=== PATIENT | female | born 1990 | race Caucasian/White ===

== ENCOUNTER 2017-07-20 02:22 | Inpatient (IN) ==
[2017-07-20] MEDS ORDERED: HYDROmorphone 2 MG/1 ML VIAL IV STA (03:11)
[2017-07-20] MEDS ORDERED: CEFTAROLINE 600 MG in SODIUM CHLORIDE 0.9% 100 ML IV STA (03:11)
[2017-07-20] MEDS ORDERED: INSULIN REGULAR 100 UNIT/ML IV STA (03:11)
[2017-07-20] MEDS ORDERED: ONDANSETRON 4 MG/2 ML VIAL IV STA (03:11)
[2017-07-20 03:24] LABS: Basophils % 0.2 % (0.0-0.8); Eosinophils # 0.1 10*3/uL (0.0-0.87); Hematocrit 38.8 VOL% (35.7-47.0); Hemoglobin 14.1 GM/DL (12.0-16.0); Immature Granulocytes % 0.5 %; Immature Granulocytes Absolute 0.07 #; Lymphocytes # 1.6 10*3/uL (1.4-4.0); Mean Corpuscular HGB Conc 36.3 GM/DL (32-36); Mean Corpuscular Hemoglobin 32 PG (27-34); Mean Corpuscular Volume 87.2 FL (87-102); Mean Platelet Volume 9.2 FL (9.6-12.0); Monocytes # 0.8 10*3/uL (0.11-0.8); Monocytes % 5.8 % (1.7-12.7); Neutrophils # 11.5 10*3/uL (1.4-7.4); Neutrophils % 81.5 % (38.7-73.9); Platelet Count 182 T/CUMM (130-400); Red Blood Count 4.45 MC/CUMM (3.8-5.5); White Blood Count 14.1 T/CUMM (4-12)
[2017-07-20 03:33] LABS: INR 0.9; PT Patient Result 9.7 SECS
[2017-07-20 03:36] LABS: Albumin 3.3 G/DL (3.4-5.0); Bilirubin,Total 0.4 MG/DL (0.2-1.0); Calcium 9.2 MG/DL (8.5-10.1); Magnesium 1.4 MG/DL (1.8-2.4); Osmolality,Calculated 280.8 MOS/KG (273-304); Total Protein 7.2 G/DL (6.4-8.3)
[2017-07-20 03:37] LABS: Lactic Acid 2.4 MMOL/L (0.4-2.0)
[2017-07-20] MEDS ORDERED: SODIUM CHLORIDE 0.9% 2,800 ML IV ONE (03:39)
[2017-07-20] MEDS ORDERED: MAGNESIUM SULF RIDER 2 GM in PREMIX 1 EACH IV STA (03:39)
[2017-07-20] MEDS ORDERED: ONDANSETRON 4 MG/2 ML VIAL ONE (03:45)
[2017-07-20] MEDS ORDERED: HYDROmorphone 2 MG/1 ML VIAL ONE (03:45)
[2017-07-20] MEDS ORDERED: INSULIN REGULAR 100 UNIT/ML ONE (03:47)
[2017-07-20] MEDS ORDERED: CEFTAROLINE 600 MG VIAL IV ONE (03:47)
[2017-07-20] MEDS ORDERED: ACETAMINOPHEN 325 MG TABLET PO PRN (04:11)
[2017-07-20] MEDS ORDERED: ONDANSETRON 4 MG/2 ML VIAL IV PRN (04:11)
[2017-07-20] MEDS ORDERED: NICOTINE 21 MG/24 HR PATCH TRANSDERM PRN (04:11)
[2017-07-20] MEDS ORDERED: GLUCAGON 1 MG VIAL IM PRN (04:11)
[2017-07-20] MEDS ORDERED: DEXTROSE 50% 25 GM/50 ML VIAL IV PRN (04:11)
[2017-07-20 06:27] LABS: Apearance,Urine CLOUDY (Clear); Bilirubin,Urine Negative (Negative); Blood, Urine Small mg/dL (Negative); Glucose,Urine (UA) >=500 mg/dL (Negative); Ketones,Urine 5 mg/dL (Negative); Nitrite,Urine Negative (Negative); Protein,Urine Negative; RBC,Urine 19 /HPF (0-4); Renal Epithelial Cells,Urine Occasional /HPF (<1); Squamous Epithelial Cell,Urine Occasional /HPF (0-10); Urine Color Yellow (Yellow); Urine Specific Gravity 1.039 (1.001-1.035); Urine Urobilinogen < 2.0 EU/DL (0.2-1.0); WBC,Urine 5 /HPF (0-6)
[2017-07-20 06:36] LABS: Barbiturates Screen,Urine Negative (Negative); Benzodiazepines Screen,Urine Negative (Negative); Cannabinoid Screen,Urine Negative (Negative); Opiate Screen,Urine Positive (Negative); Phencyclidine Screen,Urine Negative (Negative)
[2017-07-20 07:36] LABS: Basophils % 0.2 % (0.0-0.8); Eosinophils # 0.1 10*3/uL (0.0-0.87); Eosinophils % 0.9 % (0.00-10.9); Hematocrit 35.5 VOL% (35.7-47.0); Hemoglobin 12.8 GM/DL (12.0-16.0); Immature Granulocytes % 0.8 %; Immature Granulocytes Absolute 0.09 #; Lymphocytes # 1.7 10*3/uL (1.4-4.0); Mean Corpuscular HGB Conc 36.1 GM/DL (32-36); Mean Corpuscular Hemoglobin 31 PG (27-34); Mean Corpuscular Volume 87.2 FL (87-102); Mean Platelet Volume 8.9 FL (9.6-12.0); Monocytes # 0.7 10*3/uL (0.11-0.8); Monocytes % 6.5 % (1.7-12.7); Neutrophils # 8.7 10*3/uL (1.4-7.4); Neutrophils % 76.6 % (38.7-73.9); Platelet Count 164 T/CUMM (130-400); Red Blood Count 4.07 MC/CUMM (3.8-5.5); Red Cell Distribution Width 11.9 % (9.3-17.3); White Blood Count 11.3 T/CUMM (4-12)
[2017-07-20 08:04] LABS: Band Neutrophils 2 % (0-10); Eosinophils 2 % (0-10); Lymphocytes 19 % (20-55); Platelet Estimate Normal; Segmented Neutrophils 70 % (50-85); Total Cells Counted 100
[2017-07-20 08:05] LABS: Hypochromasia 1+; Ovalocytes Slight
[2017-07-20] MEDS: SODIUM CHLORIDE 0.9% 1,000 ML IV SCH ×2 (08:42→18:42)
[2017-07-20] MEDS: INSULIN REGULAR 100 UNIT/ML SUBCUT SCH ×3 (08:43→18:42)
[2017-07-20] MEDS: ENOXAPARIN 40 MG/0.4 ML SYRINGE SUBCUT SCH (08:44)
[2017-07-20] MEDS: DOCUSATE SODIUM 100 MG CAPSULE PO SCH ×3 (08:44→22:09)
[2017-07-20] MEDS: INSULIN GLARGINE 100 UNIT/ML SUBCUT SCH (08:44)
[2017-07-20] MEDS: PANTOPRAZOLE 40 MG TABLET PO SCH (08:44)
[2017-07-20 10:08] LABS: INR 0.9
[2017-07-20] MEDS: PIPERACILLIN/TAZOBACTAM 3,375 MG in SODIUM CHLORIDE 0.9% 100 ML IV SCH ×2 (10:33→18:42)
[2017-07-20] MEDS: CLOTRIMAZOLE 1% CREAM 15 GM TUBE TOP SCH ×2 (15:14→22:08)
[2017-07-20] MEDS: MORPHINE 2 MG/1 ML SYRINGE IV PRN (15:14)
[2017-07-20 15:21] LABS: Calcium 7.8 MG/DL (8.5-10.1); Osmolality,Calculated 287.4 MOS/KG (273-304); Potassium 3.7 MMOL/L (3.5-5.1)
[2017-07-20] MEDS: CEFTAROLINE 600 MG in SODIUM CHLORIDE 0.9% 50 ML IV SCH (15:59)
[2017-07-21] MEDS: MORPHINE 2 MG/1 ML SYRINGE IV PRN ×3 (01:28→22:27)
[2017-07-21] MEDS: INSULIN REGULAR 100 UNIT/ML SUBCUT SCH ×4 (01:54→18:14)
[2017-07-21] MEDS: PIPERACILLIN/TAZOBACTAM 3,375 MG in SODIUM CHLORIDE 0.9% 100 ML IV SCH ×3 (02:02→22:25)
[2017-07-21 04:59] LABS: Basophils % 0.5 % (0.0-0.8); Eosinophils # 0.1 10*3/uL (0.0-0.87); Hematocrit 34.4 VOL% (35.7-47.0); Hemoglobin 12.1 GM/DL (12.0-16.0); Immature Granulocytes % 0.8 %; Immature Granulocytes Absolute 0.05 #; Lymphocytes # 1.5 10*3/uL (1.4-4.0); Lymphocytes % 22.9 % (21.3-54.2); Mean Corpuscular HGB Conc 35.2 GM/DL (32-36); Mean Corpuscular Hemoglobin 31 PG (27-34); Mean Corpuscular Volume 89.1 FL (87-102); Mean Platelet Volume 9.4 FL (9.6-12.0); Monocytes # 0.4 10*3/uL (0.11-0.8); Monocytes % 6.4 % (1.7-12.7); Neutrophils # 4.3 10*3/uL (1.4-7.4); Neutrophils % 67.4 % (38.7-73.9); Platelet Count 160 T/CUMM (130-400); Red Blood Count 3.86 MC/CUMM (3.8-5.5); Red Cell Distribution Width 12.1 % (9.3-17.3); White Blood Count 6.4 T/CUMM (4-12)
[2017-07-21 05:27] LABS: Calcium 7.9 MG/DL (8.5-10.1); Magnesium 1.6 MG/DL (1.8-2.4); Osmolality,Calculated 288.4 MOS/KG (273-304); Potassium 3.7 MMOL/L (3.5-5.1)
[2017-07-21] MEDS: CEFTAROLINE 600 MG in SODIUM CHLORIDE 0.9% 50 ML IV SCH ×2 (06:32→16:55)
[2017-07-21] MEDS: SODIUM CHLORIDE 0.9% 1,000 ML IV SCH ×4 (06:33→22:25)
[2017-07-21] MEDS: PANTOPRAZOLE 40 MG TABLET PO SCH (09:02)
[2017-07-21] MEDS: INSULIN GLARGINE 100 UNIT/ML SUBCUT SCH (09:02)
[2017-07-21] MEDS: ENOXAPARIN 40 MG/0.4 ML SYRINGE SUBCUT SCH (09:03)
[2017-07-21] MEDS: DOCUSATE SODIUM 100 MG CAPSULE PO SCH ×2 (09:04→22:26)
[2017-07-21] MEDS: CLOTRIMAZOLE 1% CREAM 15 GM TUBE TOP SCH ×2 (09:04→22:26)
[2017-07-21] MEDS ORDERED: MAGNESIUM SULF RIDER 4 GM in PREMIX 1 EACH IV ONE (17:30)
[2017-07-21] MEDS: diphenhydrAMINE 50 MG/1 ML VIAL IV PRN (22:26)
[2017-07-22] MEDS: INSULIN REGULAR 100 UNIT/ML SUBCUT SCH ×4 (01:17→17:00)
[2017-07-22] MEDS: CEFTAROLINE 600 MG in SODIUM CHLORIDE 0.9% 50 ML IV SCH ×2 (04:18→17:00)
[2017-07-22] MEDS: PIPERACILLIN/TAZOBACTAM 3,375 MG in SODIUM CHLORIDE 0.9% 100 ML IV SCH ×3 (05:11→21:18)
[2017-07-22] MEDS: ENOXAPARIN 40 MG/0.4 ML SYRINGE SUBCUT SCH (08:43)
[2017-07-22] MEDS: PANTOPRAZOLE 40 MG TABLET PO SCH (08:43)
[2017-07-22] MEDS: INSULIN GLARGINE 100 UNIT/ML SUBCUT SCH (08:43)
[2017-07-22] MEDS: diphenhydrAMINE 50 MG/1 ML VIAL IV PRN ×2 (08:44→21:17)
[2017-07-22] MEDS: MORPHINE 2 MG/1 ML SYRINGE IV PRN ×2 (08:44→21:17)
[2017-07-22] MEDS: DOCUSATE SODIUM 100 MG CAPSULE PO SCH ×2 (08:45→21:19)
[2017-07-22] MEDS: SODIUM CHLORIDE 0.9% 1,000 ML IV SCH ×2 (08:46→11:51)
[2017-07-22] MEDS: CLOTRIMAZOLE 1% CREAM 15 GM TUBE TOP SCH ×2 (08:46→21:18)
[2017-07-23] MEDS: INSULIN REGULAR 100 UNIT/ML SUBCUT SCH ×3 (00:28→12:01)
[2017-07-23] MEDS: CEFTAROLINE 600 MG in SODIUM CHLORIDE 0.9% 50 ML IV SCH (04:10)
[2017-07-23] MEDS: PIPERACILLIN/TAZOBACTAM 3,375 MG in SODIUM CHLORIDE 0.9% 100 ML IV SCH ×2 (05:14→14:02)
[2017-07-23] MEDS: DOCUSATE SODIUM 100 MG CAPSULE PO SCH (08:11)
[2017-07-23] MEDS: CLOTRIMAZOLE 1% CREAM 15 GM TUBE TOP SCH (08:11)
[2017-07-23] MEDS: ENOXAPARIN 40 MG/0.4 ML SYRINGE SUBCUT SCH (08:11)
[2017-07-23] MEDS: PANTOPRAZOLE 40 MG TABLET PO SCH (08:11)
[2017-07-23] MEDS: INSULIN GLARGINE 100 UNIT/ML SUBCUT SCH (08:12)
[2017-07-23] MEDS: MORPHINE 2 MG/1 ML SYRINGE IV PRN ×2 (08:14→15:52)
[2017-07-23] MEDS: diphenhydrAMINE 50 MG/1 ML VIAL IV PRN ×2 (08:15→15:51)
[2017-07-23] MEDS: SODIUM CHLORIDE 0.9% 1,000 ML IV SCH ×2 (10:30→12:01)
[2017-07-23 11:49] VITALS: BP 106/65
== END 2017-07-23 17:27 | disposition home or self-care (01) | DRG 638 ==
LOC: N.ED 02:22 → N.EDINP 04:09 → N.5E 04:43
PROVIDERS: ADMIT Internal Medicine; ATTEND Internal Medicine

== ENCOUNTER 2017-07-31 18:23 | Inpatient (IN) ==
[2017-07-31] MEDS ORDERED: INSULIN REGULAR 100 UNIT/ML IV STA (20:08)
[2017-07-31] MEDS ORDERED: INSULIN REGULAR 100 UNIT/ML ONE (20:15)
[2017-07-31 20:33] LABS: Basophils % 0.3 % (0.0-0.8); Eosinophils # 0.2 10*3/uL (0.0-0.87); Eosinophils % 1.9 % (0.00-10.9); Hematocrit 39.8 VOL% (35.7-47.0); Hemoglobin 14.4 GM/DL (12.0-16.0); Immature Granulocytes % 0.6 %; Immature Granulocytes Absolute 0.07 #; Lymphocytes # 2.3 10*3/uL (1.4-4.0); Lymphocytes % 21.5 % (21.3-54.2); Mean Corpuscular HGB Conc 36.2 GM/DL (32-36); Mean Corpuscular Hemoglobin 31 PG (27-34); Mean Corpuscular Volume 86.3 FL (87-102); Mean Platelet Volume 8.7 FL (9.6-12.0); Monocytes # 0.5 10*3/uL (0.11-0.8); Monocytes % 4.3 % (1.7-12.7); Neutrophils # 7.8 10*3/uL (1.4-7.4); Neutrophils % 71.4 % (38.7-73.9); Platelet Count 210 T/CUMM (130-400); Red Blood Count 4.61 MC/CUMM (3.8-5.5); White Blood Count 10.9 T/CUMM (4-12)
[2017-07-31 21:01] LABS: Alanine Aminotransferase 22 U/L (13-56); Albumin 3.3 G/DL (3.4-5.0); Alkaline Phosphatase 79 U/L (45-117); Aspartate Amino Transferase 16 U/L (0-37); Bilirubin,Total < 0.39 MG/DL (0.2-1.0); Blood Urea Nitrogen 10 MG/DL (7-18); Calcium 8.8 MG/DL (8.5-10.1); Glucose 410 MG/DL (74-106); Osmolality,Calculated 283.2 MOS/KG (273-304); Potassium 4.4 MMOL/L (3.5-5.1); Sodium 134 MMOL/L (136-145); Total Protein 7.1 G/DL (6.4-8.3)
[2017-07-31] MEDS ORDERED: SODIUM CHLORIDE 0.9% 2,800 ML IV ONE (21:12)
[2017-07-31] MEDS ORDERED: VANCOMYCIN INJ 1,500 MG in SODIUM CHLORIDE 0.9% 500 ML IV STA (21:14)
[2017-07-31] MEDS ORDERED: CEFEPIME 2,000 MG in SODIUM CHLORIDE 0.9% 100 ML IV STA (21:14)
[2017-07-31] MEDS ORDERED: KETOROLAC 30 MG/1 ML VIAL IV STA (21:18)
[2017-07-31] MEDS ORDERED: KETOROLAC 30 MG/1 ML VIAL ONE (21:21)
[2017-07-31 21:40] LABS: Apearance,Urine Slightly Hazy (Clear); Bilirubin,Urine Negative (Negative); Blood, Urine Small mg/dL (Negative); Glucose,Urine (UA) >=500 mg/dL (Negative); Ketones,Urine Negative (Negative); Nitrite,Urine Negative (Negative); Protein,Urine Negative; RBC,Urine 15 /HPF (0-4); Squamous Epithelial Cell,Urine Occasional /HPF (0-10); Urine Color Yellow (Yellow); Urine Specific Gravity 1.035 (1.001-1.035); Urine Urobilinogen < 2.0 EU/DL (0.2-1.0); WBC,Urine 7 /HPF (0-6)
[2017-07-31] MEDS ORDERED: DEXTROSE 50% 25 GM/50 ML VIAL IV PRN (22:39)
[2017-07-31] MEDS ORDERED: ONDANSETRON 4 MG/2 ML VIAL IV PRN (22:39)
[2017-07-31] MEDS ORDERED: GLUCAGON 1 MG VIAL IM PRN (22:39)
[2017-07-31] MEDS ORDERED: PROMETHAZINE 25 MG/1 ML VIAL IM PRN (22:39)
[2017-08-01] MEDS ORDERED: INFLUENZA VIRUS VACCINE 0.5 ML SYRINGE IM ONE (00:02)
[2017-08-01] MEDS: MORPHINE 2 MG/1 ML SYRINGE IV PRN ×3 (00:38→20:21)
[2017-08-01] MEDS: SODIUM CHLORIDE 0.9% 1,000 ML IV SCH ×3 (00:39→16:19)
[2017-08-01 10:00] LABS: Basophils % 0.2 % (0.0-0.8); Eosinophils # 0.2 10*3/uL (0.0-0.87); Eosinophils % 2.2 % (0.00-10.9); Hematocrit 35.9 VOL% (35.7-47.0); Hemoglobin 12.3 GM/DL (12.0-16.0); Immature Granulocytes % 1.1 %; Immature Granulocytes Absolute 0.09 #; Lymphocytes # 2.1 10*3/uL (1.4-4.0); Lymphocytes % 25.5 % (21.3-54.2); Mean Corpuscular HGB Conc 34.3 GM/DL (32-36); Mean Corpuscular Hemoglobin 31 PG (27-34); Mean Corpuscular Volume 90.4 FL (87-102); Mean Platelet Volume 9.4 FL (9.6-12.0); Monocytes # 0.4 10*3/uL (0.11-0.8); Monocytes % 5.5 % (1.7-12.7); Neutrophils # 5.3 10*3/uL (1.4-7.4); Neutrophils % 65.5 % (38.7-73.9); Platelet Count 183 T/CUMM (130-400); Red Blood Count 3.97 MC/CUMM (3.8-5.5); White Blood Count 8.1 T/CUMM (4-12)
[2017-08-01] MEDS: PANTOPRAZOLE 40 MG TABLET PO SCH (10:11)
[2017-08-01] MEDS: CEFTAROLINE 600 MG in SODIUM CHLORIDE 0.9% 50 ML IV SCH ×2 (10:11→21:40)
[2017-08-01] MEDS: INSULIN REGULAR 100 UNIT/ML SUBCUT SCH ×4 (10:11→20:22)
[2017-08-01] MEDS: ENOXAPARIN 40 MG/0.4 ML SYRINGE SUBCUT SCH (10:11)
[2017-08-01 11:52] LABS: Albumin 2.8 G/DL (3.4-5.0); Bilirubin,Total 0.4 MG/DL (0.2-1.0); Calcium 7.9 MG/DL (8.5-10.1); Potassium 3.6 MMOL/L (3.5-5.1); Total Protein 5.9 G/DL (6.4-8.3)
[2017-08-01] MEDS: VANCOMYCIN INJ 1,250 MG in SODIUM CHLORIDE 0.45% 250 ML IV SCH ×2 (11:52→23:47)
[2017-08-01] MEDS: KETOCONAZOLE 2% CREAM 30 GM TUBE TOP SCH ×2 (12:04→20:05)
[2017-08-01] MEDS ORDERED: CHLORHEXIDINE 4% SOLN 118 ML BOTTLE TOP ONE (15:46)
[2017-08-01] MEDS ORDERED: SKIN HEALING OINT (AQUAPHOR) 50 GM TUBE TOP PRN (16:46)
[2017-08-01] MEDS: BACITRACIN OINT 0.9 GM PACK TOP SCH (19:05)
[2017-08-01] MEDS: ZALEPLON 5 MG CAPSULE PO PRN (20:22)
[2017-08-02] MEDS: MORPHINE 2 MG/1 ML SYRINGE IV PRN ×5 (05:05→21:58)
[2017-08-02] MEDS: BACITRACIN OINT 0.9 GM PACK TOP SCH (08:57)
[2017-08-02] MEDS: ENOXAPARIN 40 MG/0.4 ML SYRINGE SUBCUT SCH (08:57)
[2017-08-02] MEDS: INSULIN REGULAR 100 UNIT/ML SUBCUT SCH ×4 (08:57→22:00)
[2017-08-02] MEDS: PANTOPRAZOLE 40 MG TABLET PO SCH (08:58)
[2017-08-02] MEDS: KETOCONAZOLE 2% CREAM 30 GM TUBE TOP SCH ×2 (08:58→22:04)
[2017-08-02] MEDS: CEFTAROLINE 600 MG in SODIUM CHLORIDE 0.9% 50 ML IV SCH ×2 (09:43→22:01)
[2017-08-02] MEDS: SODIUM CHLORIDE 0.9% 1,000 ML IV SCH ×2 (09:43→17:14)
[2017-08-02] MEDS: MUPIROCIN 2% OINT 22 GM TUBE TOP SCH ×2 (17:14→22:04)
[2017-08-02] MEDS: ZALEPLON 5 MG CAPSULE PO PRN (21:57)
[2017-08-02] MEDS: SULFAMETHOX/TRIMETHOPRIM 800-160 MG TABLET PO SCH (21:57)
[2017-08-03] MEDS: SODIUM CHLORIDE 0.9% 1,000 ML IV SCH ×3 (03:44→22:24)
[2017-08-03] MEDS: MORPHINE 2 MG/1 ML SYRINGE IV PRN (05:09)
[2017-08-03 06:31] LABS: Basophils % 0.3 % (0.0-0.8); Eosinophils # 0.1 10*3/uL (0.0-0.87); Eosinophils % 2.1 % (0.00-10.9); Hematocrit 37.7 VOL% (35.7-47.0); Hemoglobin 13.4 GM/DL (12.0-16.0); Immature Granulocytes % 0.8 %; Immature Granulocytes Absolute 0.05 #; Lymphocytes # 1.7 10*3/uL (1.4-4.0); Lymphocytes % 26.1 % (21.3-54.2); Mean Corpuscular HGB Conc 35.5 GM/DL (32-36); Mean Corpuscular Hemoglobin 31 PG (27-34); Mean Corpuscular Volume 86.5 FL (87-102); Monocytes # 0.4 10*3/uL (0.11-0.8); Monocytes % 6.3 % (1.7-12.7); Neutrophils # 4.1 10*3/uL (1.4-7.4); Neutrophils % 64.4 % (38.7-73.9); Platelet Count 196 T/CUMM (130-400); Red Blood Count 4.36 MC/CUMM (3.8-5.5); Red Cell Distribution Width 11.9 % (9.3-17.3); White Blood Count 6.3 T/CUMM (4-12)
[2017-08-03] MEDS ORDERED: LIDOCAINE 1%/EPI INJ 20 ML VIAL ONE (06:44)
[2017-08-03] MEDS ORDERED: BUPIVACAINE 0.25% 50 ML VIAL ONE (06:44)
[2017-08-03] MEDS ORDERED: ceFAZolin 2,000 MG in PREMIX 1 EACH IV ONE (07:00)
[2017-08-03 07:01] LABS: Calcium 8.8 MG/DL (8.5-10.1); Potassium 3.8 MMOL/L (3.5-5.1)
[2017-08-03] MEDS ORDERED: SCOPOLAMINE 1.5 MG PATCH TRANSDERM ONE ×2 (07:12→07:13)
[2017-08-03 07:25] LABS: Albumin 3.1 G/DL (3.4-5.0); Bilirubin,Total 0.8 MG/DL (0.2-1.0); Calcium 8.7 MG/DL (8.5-10.1); Potassium 3.8 MMOL/L (3.5-5.1); Total Protein 6.9 G/DL (6.4-8.3)
[2017-08-03] MEDS ORDERED: MIDAZOLAM 2 MG/2 ML VIAL ONE (08:27)
[2017-08-03] MEDS ORDERED: fentaNYL 100 MCG/2 ML VIAL ONE (08:27)
[2017-08-03] MEDS ORDERED: PROPOFOL 200 MG/20 ML VIAL IV ONE (08:27)
[2017-08-03] MEDS ORDERED: SEVOFLURANE 1 UNIT/15 MINUTE INH ONE (08:27)
[2017-08-03] MEDS ORDERED: SUCCINYLCHOLINE 200 MG/10 ML VIAL ONE (08:28)
[2017-08-03] MEDS ORDERED: ONDANSETRON 4 MG/2 ML VIAL ONE (08:28)
[2017-08-03] MEDS ORDERED: PROMETHAZINE 25 MG/1 ML VIAL ONE (08:28)
[2017-08-03] MEDS ORDERED: HYDROmorphone 2 MG/1 ML VIAL IV PRN (08:36)
[2017-08-03] MEDS ORDERED: ONDANSETRON 4 MG/2 ML VIAL IV PRN (08:36)
[2017-08-03] MEDS: INSULIN REGULAR 100 UNIT/ML SUBCUT SCH ×4 (09:56→22:16)
[2017-08-03] MEDS: KETOCONAZOLE 2% CREAM 30 GM TUBE TOP SCH ×2 (09:57→22:24)
[2017-08-03] MEDS: BACITRACIN OINT 0.9 GM PACK TOP SCH (09:57)
[2017-08-03] MEDS: PANTOPRAZOLE 40 MG TABLET PO SCH (09:57)
[2017-08-03] MEDS: KETOROLAC 15 MG/1 ML VIAL IV SCH ×3 (09:57→22:25)
[2017-08-03] MEDS: MUPIROCIN 2% OINT 22 GM TUBE TOP SCH ×3 (09:57→22:24)
[2017-08-03] MEDS: SULFAMETHOX/TRIMETHOPRIM 800-160 MG TABLET PO SCH ×2 (09:57→22:15)
[2017-08-03] MEDS: CEFTAROLINE 600 MG in SODIUM CHLORIDE 0.9% 50 ML IV SCH ×2 (09:58→22:25)
[2017-08-03] MEDS: ceFAZolin 2,000 MG in PREMIX 1 EACH IV SCH (16:43)
[2017-08-04] MEDS: ceFAZolin 2,000 MG in PREMIX 1 EACH IV SCH (00:25)
[2017-08-04] MEDS: KETOROLAC 15 MG/1 ML VIAL IV SCH ×2 (02:45→09:22)
[2017-08-04] MEDS: MORPHINE 2 MG/1 ML SYRINGE IV PRN (06:04)
[2017-08-04 06:29] LABS: Basophils % 0.3 % (0.0-0.8); Eosinophils # 0.1 10*3/uL (0.0-0.87); Eosinophils % 1.9 % (0.00-10.9); Hemoglobin 11.9 GM/DL (12.0-16.0); Immature Granulocytes % 0.7 %; Immature Granulocytes Absolute 0.04 #; Lymphocytes # 1.9 10*3/uL (1.4-4.0); Lymphocytes % 31.4 % (21.3-54.2); Mean Corpuscular Hemoglobin 31 PG (27-34); Mean Corpuscular Volume 88.3 FL (87-102); Monocytes # 0.3 10*3/uL (0.11-0.8); Monocytes % 5.8 % (1.7-12.7); Neutrophils # 3.5 10*3/uL (1.4-7.4); Neutrophils % 59.9 % (38.7-73.9); Platelet Count 170 T/CUMM (130-400); Red Blood Count 3.85 MC/CUMM (3.8-5.5); Red Cell Distribution Width 11.9 % (9.3-17.3); White Blood Count 5.9 T/CUMM (4-12)
[2017-08-04 06:44] LABS: Calcium 8.1 MG/DL (8.5-10.1); Osmolality,Calculated 280.5 MOS/KG (273-304)
[2017-08-04 06:45] LABS: Potassium 4.1 MMOL/L (3.5-5.1)
[2017-08-04] MEDS: SULFAMETHOX/TRIMETHOPRIM 800-160 MG TABLET PO SCH (09:21)
[2017-08-04] MEDS: BACITRACIN OINT 0.9 GM PACK TOP SCH (09:21)
[2017-08-04] MEDS: PANTOPRAZOLE 40 MG TABLET PO SCH (09:21)
[2017-08-04] MEDS: CEFTAROLINE 600 MG in SODIUM CHLORIDE 0.9% 50 ML IV SCH (09:22)
[2017-08-04] MEDS: ENOXAPARIN 40 MG/0.4 ML SYRINGE SUBCUT SCH (09:22)
[2017-08-04] MEDS: INSULIN REGULAR 100 UNIT/ML SUBCUT SCH ×2 (09:24→12:40)
[2017-08-04 11:59] VITALS: BP 116/78
[2017-08-04] MEDS: MUPIROCIN 2% OINT 22 GM TUBE TOP SCH (12:41)
[2017-08-04] MEDS: SODIUM CHLORIDE 0.9% 1,000 ML IV SCH (12:42)
== END 2017-08-04 13:00 | disposition home or self-care (01) | DRG 264 ==
LOC: N.ED 18:23 → N.EDINP 22:39 → N.2E 23:08
PROVIDERS: ADMIT Family Medicine; ATTEND Family Medicine

== ENCOUNTER 2018-04-12 12:49 | Inpatient (IN) ==
[2018-04-12] MEDS ORDERED: VANCOMYCIN INJ 1,250 MG in SODIUM CHLORIDE 0.9% 250 ML IV STA (13:22)
[2018-04-12] MEDS ORDERED: PIPERACILLIN/TAZOBACTAM 3,375 MG in SODIUM CHLORIDE 0.9% 100 ML IV STA (13:22)
[2018-04-12] MEDS ORDERED: INSULIN REGULAR 100 UNIT/ML IV STA (13:23)
[2018-04-12] MEDS ORDERED: SODIUM CHLORIDE 0.9% 1,000 ML IV SCH (13:30)
[2018-04-12 14:40] LABS: Basophils % 0.3 % (0.0-0.8); Eosinophils # 0.1 10*3/uL (0.0-0.87); Eosinophils % 1.1 % (0.00-10.9); Hematocrit 43.1 VOL% (35.7-47.0); Hemoglobin 15.6 GM/DL (12.0-16.0); Immature Granulocytes % 0.7 %; Immature Granulocytes Absolute 0.07 #; Lymphocytes # 2.6 10*3/uL (1.4-4.0); Lymphocytes % 25.2 % (21.3-54.2); Mean Corpuscular HGB Conc 36.2 GM/DL (32-36); Mean Corpuscular Hemoglobin 32 PG (27-34); Mean Corpuscular Volume 87.1 FL (87-102); Monocytes # 0.5 10*3/uL (0.11-0.8); Monocytes % 5.3 % (1.7-12.7); Neutrophils # 6.9 10*3/uL (1.4-7.4); Neutrophils % 67.4 % (38.7-73.9); Platelet Count 250 T/CUMM (130-400); Red Blood Count 4.95 MC/CUMM (3.8-5.5); Red Cell Distribution Width 12.2 % (9.3-17.3); White Blood Count 10.2 T/CUMM (4-12)
[2018-04-12 14:55] LABS: INR 0.8; PT Patient Result 8.9 SECS; Partial Thromboplastin Time 22.8 SECS (0-40)
[2018-04-12] MEDS ORDERED: ACETAMINOPHEN 325 MG TABLET PO PRN (15:09)
[2018-04-12] MEDS ORDERED: GLUCAGON 1 MG VIAL IM PRN (15:09)
[2018-04-12] MEDS ORDERED: DEXTROSE 50% 25 GM/50 ML VIAL IV PRN (15:09)
[2018-04-12] MEDS ORDERED: PROMETHAZINE 25 MG TABLET PO PRN (15:09)
[2018-04-12] MEDS ORDERED: PROMETHAZINE 25 MG/1 ML VIAL IM PRN (15:09)
[2018-04-12 15:19] LABS: Lactic Acid 3.2 MMOL/L (0.4-2.0)
[2018-04-12] MEDS ORDERED: SODIUM CHLORIDE 0.9% 3,150 ML IV ONE (15:30)
[2018-04-12 15:41] LABS: Alanine Aminotransferase 34 U/L (13-56); Albumin 3.3 G/DL (3.4-5.0); Alkaline Phosphatase 91 U/L (45-117); Aspartate Amino Transferase 71 U/L (0-37); Blood Urea Nitrogen 22 MG/DL (7-18); Calcium 9.3 MG/DL (8.5-10.1); Osmolality,Calculated 290.1 MOS/KG (273-304); Sodium 128 MMOL/L (136-145); Total Protein 8.5 G/DL (6.4-8.3)
[2018-04-12 15:47] LABS: Glucose 661 MG/DL (74-106); Potassium 6.4 MMOL/L (3.5-5.1)
[2018-04-12 15:49] LABS: Apearance,Urine CLEAR (Clear); Bilirubin,Urine Negative (Negative); Blood, Urine Negative (Negative); Glucose,Urine (UA) >=500 mg/dL (Negative); Ketones,Urine 5 mg/dL (Negative); Nitrite,Urine Negative (Negative); Protein,Urine Negative; RBC,Urine <1 /HPF (0-4); Squamous Epithelial Cell,Urine Occasional /HPF (0-10); Urine Color Colorless (Yellow); Urine Specific Gravity 1.027 (1.001-1.035); Urine Urobilinogen < 2.0 EU/DL (0.2-1.0); WBC,Urine 1 /HPF (0-6)
[2018-04-12 16:00] LABS: Thyroid Stimulating Hormone 1.32 uIU/ml (0.358-3.74)
[2018-04-12] MEDS ORDERED: VANCOMYCIN INJ 1,500 MG in SODIUM CHLORIDE 0.9% 250 ML IV SCH (16:00)
[2018-04-12] MEDS ORDERED: INSULIN REGULAR 100 UNIT/ML IV ONE ×2 (16:05→19:36)
[2018-04-12] MEDS ORDERED: SODIUM POLYSTYRENE SULFATE 15 GM/60 ML BOTTLE PO ONE (16:53)
[2018-04-12] MEDS ORDERED: GENTAMICIN INJ 400 MG in SODIUM CHLORIDE 0.9% 100 ML IV SCH (17:00)
[2018-04-12] MEDS ORDERED: VANCOMYCIN INJ 1,500 MG in SODIUM CHLORIDE 0.9% 500 ML IV SCH (17:00)
[2018-04-12] MEDS: ENOXAPARIN 40 MG/0.4 ML SYRINGE SUBCUT SCH (17:43)
[2018-04-12] MEDS: INSULIN REGULAR 100 UNIT/ML SUBCUT SCH (17:43)
[2018-04-12] MEDS: PANTOPRAZOLE 40 MG TABLET PO SCH (17:44)
[2018-04-12 18:18] LABS: ABG Base Excess -3.3 MMOL/L (-2.5-2.5); ABG HCO3 20.4 MMOL/L (20-26); ABG PCO2 32.2 MM HG (35-48); ABG TCO2 21.4 MMOL/L (23-27)
[2018-04-12 18:21] LABS: ABG PO2 33.2 MM HG (80-95)
[2018-04-12] MEDS: ONDANSETRON 4 MG/2 ML VIAL IV PRN (18:29)
[2018-04-12] MEDS ORDERED: diphenhydrAMINE CAP 25 MG CAPSULE PO PRN (18:30)
[2018-04-12 19:13] LABS: Calcium 8.4 MG/DL (8.5-10.1)
[2018-04-12 19:14] LABS: Osmolality,Calculated 293.7 MOS/KG (273-304); Potassium 3.9 MMOL/L (3.5-5.1)
[2018-04-12] MEDS: SODIUM CHLORIDE 0.9% 1,000 ML IV SCH (19:21)
[2018-04-12] MEDS ORDERED: MAGNESIUM SULF RIDER 2 GM in PREMIX 1 EACH IV ONE (19:35)
[2018-04-12] MEDS ORDERED: POTASSIUM CHLORIDE 20 MEQ TABLET PO PRN (19:42)
[2018-04-12] MEDS ORDERED: POTASSIUM CHLORIDE RIDER 10 MEQ in PREMIX 1 EACH IV PRN (19:42)
[2018-04-12] MEDS: GABAPENTIN 300 MG CAPSULE PO SCH (20:40)
[2018-04-12] MEDS: INSULIN GLARGINE 100 UNIT/ML SUBCUT SCH (20:42)
[2018-04-12] MEDS ORDERED: INSULIN REGULAR 100 UNIT/ML SUBCUT SCH (21:00)
[2018-04-12] MEDS: MORPHINE 4 MG/1 ML VIAL IV PRN (22:02)
[2018-04-13] MEDS: VANCOMYCIN INJ 1,500 MG in SODIUM CHLORIDE 0.9% 500 ML IV SCH ×3 (02:55→19:04)
[2018-04-13] MEDS: SODIUM CHLORIDE 0.9% 1,000 ML IV SCH ×2 (03:30→14:39)
[2018-04-13] MEDS ORDERED: ceFAZolin 2,000 MG in PREMIX 1 EACH IV ONE (07:45)
[2018-04-13 07:53] LABS: Basophils % 0.3 % (0.0-0.8); Eosinophils # 0.1 10*3/uL (0.0-0.87); Eosinophils % 1.3 % (0.00-10.9); Hematocrit 37.8 VOL% (35.7-47.0); Hemoglobin 12.7 GM/DL (12.0-16.0); Immature Granulocytes % 0.9 %; Immature Granulocytes Absolute 0.08 #; Lymphocytes # 1.6 10*3/uL (1.4-4.0); Lymphocytes % 17.6 % (21.3-54.2); Mean Corpuscular HGB Conc 33.6 GM/DL (32-36); Mean Corpuscular Hemoglobin 31 PG (27-34); Mean Corpuscular Volume 91.1 FL (87-102); Mean Platelet Volume 8.5 FL (9.6-12.0); Monocytes # 0.5 10*3/uL (0.11-0.8); Monocytes % 5.5 % (1.7-12.7); Neutrophils # 6.6 10*3/uL (1.4-7.4); Neutrophils % 74.4 % (38.7-73.9); Platelet Count 169 T/CUMM (130-400); Red Blood Count 4.15 MC/CUMM (3.8-5.5); Red Cell Distribution Width 12.5 % (9.3-17.3); White Blood Count 8.9 T/CUMM (4-12)
[2018-04-13 08:27] LABS: Alanine Aminotransferase 18 U/L (13-56); Albumin 2.5 G/DL (3.4-5.0); Alkaline Phosphatase 67 U/L (45-117); Aspartate Amino Transferase 13 U/L (0-37); Bilirubin,Total < 0.39 MG/DL (0.2-1.0); Blood Urea Nitrogen 11 MG/DL (7-18); Calcium 7.6 MG/DL (8.5-10.1); Glucose 279 MG/DL (74-106); Osmolality,Calculated 287.4 MOS/KG (273-304); Potassium 3.8 MMOL/L (3.5-5.1); Sodium 140 MMOL/L (136-145); Total Protein 6.5 G/DL (6.4-8.3)
[2018-04-13] MEDS: MORPHINE 4 MG/1 ML VIAL IV PRN ×2 (08:47→21:31)
[2018-04-13] MEDS: INSULIN GLARGINE 100 UNIT/ML SUBCUT SCH ×2 (08:50→21:15)
[2018-04-13] MEDS: INSULIN REGULAR 100 UNIT/ML SUBCUT SCH ×6 (08:51→17:04)
[2018-04-13] MEDS: PANTOPRAZOLE 40 MG TABLET PO SCH (08:55)
[2018-04-13] MEDS: GABAPENTIN 300 MG CAPSULE PO SCH ×3 (08:55→21:14)
[2018-04-13] MEDS ORDERED: PANTOPRAZOLE 40 MG TABLET PO ONE (08:56)
[2018-04-13] MEDS ORDERED: SCOPOLAMINE 1.5 MG PATCH TRANSDERM ONE (08:56)
[2018-04-13] MEDS ORDERED: ERGOCALCIFEROL 50,000 UNIT CAPSULE PO SCH (11:00)
[2018-04-13] MEDS ORDERED: LIDOCAINE 1%/EPI INJ 20 ML VIAL ONE (14:13)
[2018-04-13] MEDS ORDERED: BUPIVACAINE 0.25% /EPI 10 ML VIAL ONE (14:13)
[2018-04-13] MEDS: NYSTATIN 500,000 UNIT/5 ML UDCUP SWISH/SWAL SCH ×3 (14:40→21:14)
[2018-04-13] MEDS ORDERED: LIDOCAINE 1% 20 ML VIAL ONE (15:27)
[2018-04-13] MEDS ORDERED: PROPOFOL 200 MG/20 ML VIAL IV ONE (16:05)
[2018-04-13] MEDS ORDERED: MIDAZOLAM 2 MG/2 ML VIAL ONE (16:05)
[2018-04-13] MEDS ORDERED: SEVOFLURANE 1 UNIT/15 MINUTE INH ONE (16:05)
[2018-04-13] MEDS ORDERED: fentaNYL 100 MCG/2 ML VIAL ONE (16:06)
[2018-04-13] MEDS ORDERED: ONDANSETRON 4 MG/2 ML VIAL ONE (16:06)
[2018-04-13] MEDS: ONDANSETRON 4 MG/2 ML VIAL IV PRN ×2 (16:59→21:35)
[2018-04-13] MEDS: ENOXAPARIN 40 MG/0.4 ML SYRINGE SUBCUT SCH (17:04)
[2018-04-14] MEDS: VANCOMYCIN INJ 1,500 MG in SODIUM CHLORIDE 0.9% 500 ML IV SCH ×2 (03:15→12:16)
[2018-04-14 03:21] LABS: Basophils % 0.2 % (0.0-0.8); Eosinophils # 0.1 10*3/uL (0.0-0.87); Eosinophils % 1.4 % (0.00-10.9); Hematocrit 34.4 VOL% (35.7-47.0); Hemoglobin 11.7 GM/DL (12.0-16.0); Immature Granulocytes % 0.6 %; Immature Granulocytes Absolute 0.05 #; Lymphocytes # 2.5 10*3/uL (1.4-4.0); Lymphocytes % 29.9 % (21.3-54.2); Mean Corpuscular Hemoglobin 31 PG (27-34); Mean Corpuscular Volume 90.3 FL (87-102); Mean Platelet Volume 8.7 FL (9.6-12.0); Monocytes # 0.5 10*3/uL (0.11-0.8); Monocytes % 5.7 % (1.7-12.7); Neutrophils # 5.2 10*3/uL (1.4-7.4); Neutrophils % 62.2 % (38.7-73.9); Platelet Count 167 T/CUMM (130-400); Red Blood Count 3.81 MC/CUMM (3.8-5.5); Red Cell Distribution Width 12.4 % (9.3-17.3); White Blood Count 8.4 T/CUMM (4-12)
[2018-04-14 03:47] LABS: Calcium 7.3 MG/DL (8.5-10.1); Osmolality,Calculated 281.5 MOS/KG (273-304); Potassium 3.4 MMOL/L (3.5-5.1)
[2018-04-14] MEDS: ONDANSETRON 4 MG/2 ML VIAL IV PRN ×3 (05:24→21:46)
[2018-04-14] MEDS: MORPHINE 4 MG/1 ML VIAL IV PRN ×3 (05:26→21:50)
[2018-04-14] MEDS: SODIUM CHLORIDE 0.9% 1,000 ML IV SCH ×2 (07:03→17:11)
[2018-04-14] MEDS ORDERED: KETOROLAC 30 MG/1 ML VIAL IV ONE (09:07)
[2018-04-14] MEDS: INSULIN REGULAR 100 UNIT/ML SUBCUT SCH ×6 (09:36→17:04)
[2018-04-14] MEDS: INSULIN GLARGINE 100 UNIT/ML SUBCUT SCH ×2 (09:37→20:42)
[2018-04-14] MEDS: PANTOPRAZOLE 40 MG TABLET PO SCH (09:40)
[2018-04-14] MEDS: GABAPENTIN 300 MG CAPSULE PO SCH ×3 (09:40→20:42)
[2018-04-14] MEDS: PIPERACILLIN/TAZOBACTAM 3,375 MG in SODIUM CHLORIDE 0.9% 100 ML IV SCH ×2 (09:40→17:04)
[2018-04-14] MEDS: LACTOBACILLUS ACIDOPHILUS/BULGARICUS CAPLET PO SCH (09:40)
[2018-04-14] MEDS: NYSTATIN 500,000 UNIT/5 ML UDCUP SWISH/SWAL SCH ×4 (09:40→20:42)
[2018-04-14] MEDS: ENOXAPARIN 40 MG/0.4 ML SYRINGE SUBCUT SCH (14:40)
[2018-04-14] MEDS: VANCOMYCIN INJ 1,750 MG in SODIUM CHLORIDE 0.9% 500 ML IV SCH (21:45)
[2018-04-15] MEDS: PIPERACILLIN/TAZOBACTAM 3,375 MG in SODIUM CHLORIDE 0.9% 100 ML IV SCH ×3 (01:34→21:17)
[2018-04-15] MEDS: MORPHINE 4 MG/1 ML VIAL IV PRN ×2 (03:09→19:54)
[2018-04-15] MEDS: ONDANSETRON 4 MG/2 ML VIAL IV PRN ×2 (03:09→19:53)
[2018-04-15 05:30] LABS: Basophils % 0.2 % (0.0-0.8); Eosinophils # 0.1 10*3/uL (0.0-0.87); Eosinophils % 1.3 % (0.00-10.9); Hematocrit 34.8 VOL% (35.7-47.0); Immature Granulocytes % 0.6 %; Immature Granulocytes Absolute 0.04 #; Lymphocytes # 1.4 10*3/uL (1.4-4.0); Lymphocytes % 22.2 % (21.3-54.2); Mean Corpuscular HGB Conc 34.5 GM/DL (32-36); Mean Corpuscular Hemoglobin 31 PG (27-34); Mean Corpuscular Volume 89.9 FL (87-102); Monocytes # 0.4 10*3/uL (0.11-0.8); Monocytes % 6.3 % (1.7-12.7); Neutrophils # 4.4 10*3/uL (1.4-7.4); Neutrophils % 69.4 % (38.7-73.9); Platelet Count 174 T/CUMM (130-400); Red Blood Count 3.87 MC/CUMM (3.8-5.5); Red Cell Distribution Width 12.4 % (9.3-17.3); White Blood Count 6.3 T/CUMM (4-12)
[2018-04-15] MEDS: VANCOMYCIN INJ 1,750 MG in SODIUM CHLORIDE 0.9% 500 ML IV SCH ×3 (05:40→22:10)
[2018-04-15 05:58] LABS: Calcium 7.9 MG/DL (8.5-10.1)
[2018-04-15 05:59] LABS: Osmolality,Calculated 282.4 MOS/KG (273-304); Potassium 3.7 MMOL/L (3.5-5.1)
[2018-04-15] MEDS ORDERED: MAGNESIUM SULF RIDER 4 GM in PREMIX 1 EACH IV PRN (07:21)
[2018-04-15] MEDS ORDERED: SCOPOLAMINE 1.5 MG PATCH TRANSDERM ONE (08:47)
[2018-04-15] MEDS: PANTOPRAZOLE 40 MG TABLET PO SCH (09:22)
[2018-04-15] MEDS: INSULIN GLARGINE 100 UNIT/ML SUBCUT SCH ×2 (09:23→21:14)
[2018-04-15] MEDS ORDERED: LIDOCAINE 1% 20 ML VIAL ONE (09:38)
[2018-04-15] MEDS ORDERED: PROPOFOL 200 MG/20 ML VIAL IV ONE (11:41)
[2018-04-15] MEDS ORDERED: SEVOFLURANE 1 UNIT/15 MINUTE INH ONE (11:41)
[2018-04-15] MEDS ORDERED: ONDANSETRON 4 MG/2 ML VIAL ONE (11:42)
[2018-04-15] MEDS ORDERED: PROMETHAZINE 25 MG/1 ML VIAL ONE (11:42)
[2018-04-15] MEDS ORDERED: MIDAZOLAM 2 MG/2 ML VIAL ONE (11:42)
[2018-04-15] MEDS ORDERED: HYDROmorphone 2 MG/1 ML VIAL ONE (12:02)
[2018-04-15] MEDS ORDERED: HYDROmorphone 2 MG/1 ML VIAL IV PRN (12:22)
[2018-04-15] MEDS: INSULIN REGULAR 100 UNIT/ML SUBCUT SCH ×5 (14:46→17:02)
[2018-04-15] MEDS: INSULIN LISPRO 100 UNIT/ML SUBCUT SCH ×2 (14:48→17:02)
[2018-04-15] MEDS: DOCUSATE SODIUM 100 MG CAPSULE PO SCH ×2 (14:49→21:18)
[2018-04-15] MEDS: LACTOBACILLUS ACIDOPHILUS/BULGARICUS CAPLET PO SCH (14:49)
[2018-04-15] MEDS: POTASSIUM CHLORIDE 20 MEQ TABLET PO SCH (14:49)
[2018-04-15] MEDS: GABAPENTIN 300 MG CAPSULE PO SCH ×3 (14:50→21:14)
[2018-04-15] MEDS: NYSTATIN 500,000 UNIT/5 ML UDCUP SWISH/SWAL SCH ×3 (14:50→21:13)
[2018-04-15] MEDS: ENOXAPARIN 40 MG/0.4 ML SYRINGE SUBCUT SCH (16:56)
[2018-04-16] MEDS: PIPERACILLIN/TAZOBACTAM 3,375 MG in SODIUM CHLORIDE 0.9% 100 ML IV SCH (04:29)
[2018-04-16 04:49] LABS: Basophils % 0.3 % (0.0-0.8); Eosinophils # 0.1 10*3/uL (0.0-0.87); Eosinophils % 0.9 % (0.00-10.9); Hematocrit 34.2 VOL% (35.7-47.0); Hemoglobin 11.5 GM/DL (12.0-16.0); Immature Granulocytes % 0.6 %; Immature Granulocytes Absolute 0.04 #; Lymphocytes # 1.5 10*3/uL (1.4-4.0); Mean Corpuscular HGB Conc 33.6 GM/DL (32-36); Mean Corpuscular Hemoglobin 31 PG (27-34); Mean Corpuscular Volume 92.4 FL (87-102); Mean Platelet Volume 8.3 FL (9.6-12.0); Monocytes # 0.5 10*3/uL (0.11-0.8); Monocytes % 7.3 % (1.7-12.7); Neutrophils # 4.2 10*3/uL (1.4-7.4); Neutrophils % 66.9 % (38.7-73.9); Platelet Count 171 T/CUMM (130-400); Red Cell Distribution Width 12.3 % (9.3-17.3); White Blood Count 6.3 T/CUMM (4-12)
[2018-04-16 05:12] LABS: Calcium 8.3 MG/DL (8.5-10.1); Osmolality,Calculated 281.3 MOS/KG (273-304); Potassium 3.9 MMOL/L (3.5-5.1)
[2018-04-16] MEDS: INSULIN REGULAR 100 UNIT/ML SUBCUT SCH ×3 (09:11→16:53)
[2018-04-16] MEDS: INSULIN LISPRO 100 UNIT/ML SUBCUT SCH ×3 (09:12→16:53)
[2018-04-16] MEDS: POTASSIUM CHLORIDE 20 MEQ TABLET PO SCH (09:13)
[2018-04-16] MEDS: NYSTATIN 500,000 UNIT/5 ML UDCUP SWISH/SWAL SCH ×4 (09:13→21:48)
[2018-04-16] MEDS: PANTOPRAZOLE 40 MG TABLET PO SCH (09:13)
[2018-04-16] MEDS: GABAPENTIN 300 MG CAPSULE PO SCH ×3 (09:13→21:49)
[2018-04-16] MEDS: LACTOBACILLUS ACIDOPHILUS/BULGARICUS CAPLET PO SCH (09:13)
[2018-04-16] MEDS: INSULIN GLARGINE 100 UNIT/ML SUBCUT SCH ×3 (09:14→21:55)
[2018-04-16] MEDS: DOCUSATE SODIUM 100 MG CAPSULE PO SCH ×2 (09:14→21:00)
[2018-04-16] MEDS: MORPHINE 4 MG/1 ML VIAL IV PRN ×3 (09:15→22:02)
[2018-04-16] MEDS: ENOXAPARIN 40 MG/0.4 ML SYRINGE SUBCUT SCH (09:15)
[2018-04-16] MEDS: SODIUM CHLORIDE 0.9% 1,000 ML IV SCH ×2 (09:43→18:16)
[2018-04-16] MEDS ORDERED: KETOROLAC 30 MG/1 ML VIAL IM ONE (11:55)
[2018-04-16] MEDS ORDERED: cefTRIAXone 1,000 MG in SYRINGE 1 EACH IV SCH (12:00)
[2018-04-16] MEDS: ONDANSETRON 4 MG/2 ML VIAL IV PRN (12:50)
[2018-04-16] MEDS: AMPICILLIN/SULBACTAM 3,000 MG in SODIUM CHLORIDE 0.9% 100 ML IV SCH ×2 (15:58→21:11)
[2018-04-16] MEDS: MAGNESIUM SULF RIDER 2 GM in PREMIX 1 EACH IV PRN (16:52)
[2018-04-17] MEDS: AMPICILLIN/SULBACTAM 3,000 MG in SODIUM CHLORIDE 0.9% 100 ML IV SCH ×4 (03:17→21:28)
[2018-04-17] MEDS: MORPHINE 4 MG/1 ML VIAL IV PRN ×3 (07:51→23:02)
[2018-04-17] MEDS: LACTOBACILLUS ACIDOPHILUS/BULGARICUS CAPLET PO SCH (08:31)
[2018-04-17] MEDS: PANTOPRAZOLE 40 MG TABLET PO SCH (08:32)
[2018-04-17] MEDS: GABAPENTIN 300 MG CAPSULE PO SCH ×3 (08:32→21:49)
[2018-04-17] MEDS: NYSTATIN 500,000 UNIT/5 ML UDCUP SWISH/SWAL SCH ×4 (08:32→21:49)
[2018-04-17] MEDS: POTASSIUM CHLORIDE 20 MEQ TABLET PO SCH (08:32)
[2018-04-17] MEDS: ENOXAPARIN 40 MG/0.4 ML SYRINGE SUBCUT SCH (08:33)
[2018-04-17] MEDS: INSULIN GLARGINE 100 UNIT/ML SUBCUT SCH ×2 (08:33→21:49)
[2018-04-17] MEDS: INSULIN LISPRO 100 UNIT/ML SUBCUT SCH ×4 (08:33→18:38)
[2018-04-17] MEDS: INSULIN REGULAR 100 UNIT/ML SUBCUT SCH ×2 (08:37→12:24)
[2018-04-17] MEDS: SODIUM CHLORIDE 0.9% 1,000 ML IV SCH ×2 (08:53→11:08)
[2018-04-17] MEDS: DOCUSATE SODIUM 100 MG CAPSULE PO SCH ×2 (08:54→21:54)
[2018-04-17] MEDS: CHOLECALCIFEROL 1,000 UNIT TABLET PO SCH (14:25)
[2018-04-17] MEDS ORDERED: DIAZEPAM 2 MG TABLET PO ONE (15:05)
[2018-04-17] MEDS ORDERED: fentaNYL 25 MCG/HR PATCH TRANSDERM SCH (16:00)
[2018-04-17 20:10] LABS: Apearance,Urine CLEAR (Clear); Bilirubin,Urine Negative (Negative); Blood, Urine Large mg/dL (Negative); Glucose,Urine (UA) 50 mg/dL (Negative); Ketones,Urine Negative (Negative); Mucus,Urine Occasional /LPF (Occasional); Nitrite,Urine Negative (Negative); Protein,Urine Negative; RBC,Urine 70 /HPF (0-4); Squamous Epithelial Cell,Urine Occasional /HPF (0-10); Urine Color Yellow (Yellow); Urine Specific Gravity 1.013 (1.001-1.035); Urine Urobilinogen < 2.0 EU/DL (0.2-1.0); WBC,Urine 7 /HPF (0-6)
[2018-04-18] MEDS: AMPICILLIN/SULBACTAM 3,000 MG in SODIUM CHLORIDE 0.9% 100 ML IV SCH ×4 (02:39→21:44)
[2018-04-18] MEDS: SODIUM CHLORIDE 0.9% 1,000 ML IV SCH ×3 (03:54→19:32)
[2018-04-18 06:42] LABS: Basophils % 0.2 % (0.0-0.8); Eosinophils # 0.1 10*3/uL (0.0-0.87); Eosinophils % 1.6 % (0.00-10.9); Hematocrit 31.5 VOL% (35.7-47.0); Hemoglobin 10.9 GM/DL (12.0-16.0); Immature Granulocytes % 0.7 %; Immature Granulocytes Absolute 0.04 #; Lymphocytes % 37.4 % (21.3-54.2); Mean Corpuscular HGB Conc 34.6 GM/DL (32-36); Mean Corpuscular Hemoglobin 31 PG (27-34); Mean Platelet Volume 8.8 FL (9.6-12.0); Monocytes # 0.4 10*3/uL (0.11-0.8); Neutrophils # 2.9 10*3/uL (1.4-7.4); Neutrophils % 53.1 % (38.7-73.9); Platelet Count 185 T/CUMM (130-400); Red Cell Distribution Width 12.1 % (9.3-17.3); White Blood Count 5.5 T/CUMM (4-12)
[2018-04-18 07:05] LABS: Calcium 7.9 MG/DL (8.5-10.1); Osmolality,Calculated 283.3 MOS/KG (273-304); Potassium 3.9 MMOL/L (3.5-5.1)
[2018-04-18] MEDS: MORPHINE 4 MG/1 ML VIAL IV PRN (08:00)
[2018-04-18] MEDS: CHOLECALCIFEROL 1,000 UNIT TABLET PO SCH (08:47)
[2018-04-18] MEDS: LACTOBACILLUS ACIDOPHILUS/BULGARICUS CAPLET PO SCH (08:48)
[2018-04-18] MEDS: NYSTATIN 500,000 UNIT/5 ML UDCUP SWISH/SWAL SCH ×4 (08:48→21:41)
[2018-04-18] MEDS: PANTOPRAZOLE 40 MG TABLET PO SCH (08:48)
[2018-04-18] MEDS: GABAPENTIN 300 MG CAPSULE PO SCH ×3 (08:48→21:42)
[2018-04-18] MEDS: POTASSIUM CHLORIDE 20 MEQ TABLET PO SCH (08:48)
[2018-04-18] MEDS: INSULIN GLARGINE 100 UNIT/ML SUBCUT SCH ×2 (08:49→21:42)
[2018-04-18] MEDS: ENOXAPARIN 40 MG/0.4 ML SYRINGE SUBCUT SCH (08:49)
[2018-04-18] MEDS: INSULIN LISPRO 100 UNIT/ML SUBCUT SCH ×6 (08:49→16:54)
[2018-04-18] MEDS: DOCUSATE SODIUM 100 MG CAPSULE PO SCH ×2 (09:29→21:46)
[2018-04-18] MEDS: MAGNESIUM CHLORIDE 64 MG TABLET PO SCH (16:01)
[2018-04-18] MEDS: KETOROLAC 30 MG/1 ML VIAL IV PRN (16:10)
[2018-04-19] MEDS: AMPICILLIN/SULBACTAM 3,000 MG in SODIUM CHLORIDE 0.9% 100 ML IV SCH ×3 (03:10→16:48)
[2018-04-19] MEDS: SODIUM CHLORIDE 0.9% 1,000 ML IV SCH (07:30)
[2018-04-19] MEDS: INSULIN GLARGINE 100 UNIT/ML SUBCUT SCH (10:07)
[2018-04-19] MEDS: INSULIN LISPRO 100 UNIT/ML SUBCUT SCH ×4 (10:07→12:35)
[2018-04-19] MEDS: MAGNESIUM SULF RIDER 2 GM in PREMIX 1 EACH IV PRN (10:08)
[2018-04-19] MEDS: ENOXAPARIN 40 MG/0.4 ML SYRINGE SUBCUT SCH (10:08)
[2018-04-19] MEDS: LACTOBACILLUS ACIDOPHILUS/BULGARICUS CAPLET PO SCH (10:09)
[2018-04-19] MEDS: CHOLECALCIFEROL 1,000 UNIT TABLET PO SCH (10:09)
[2018-04-19] MEDS: PANTOPRAZOLE 40 MG TABLET PO SCH (10:10)
[2018-04-19] MEDS: POTASSIUM CHLORIDE 20 MEQ TABLET PO SCH (10:10)
[2018-04-19] MEDS: NYSTATIN 500,000 UNIT/5 ML UDCUP SWISH/SWAL SCH ×2 (10:10→12:35)
[2018-04-19] MEDS: GABAPENTIN 300 MG CAPSULE PO SCH ×2 (10:10→17:00)
[2018-04-19] MEDS: MAGNESIUM CHLORIDE 64 MG TABLET PO SCH (10:10)
[2018-04-19] MEDS: DOCUSATE SODIUM 100 MG CAPSULE PO SCH (10:10)
[2018-04-19] MEDS: KETOROLAC 30 MG/1 ML VIAL IV PRN (11:12)
[2018-04-19 16:23] VITALS: BP 130/82
== END 2018-04-19 16:43 | disposition home health service (06) | DRG 623 ==
LOC: N.ED 12:49 → N.EDINP 14:53 → N.2E 15:37
PROVIDERS: ADMIT Hospitalist; ATTEND Hospitalist

== ENCOUNTER 2018-04-26 17:00 | Observation (INO) ==
[2018-04-26] MEDS ORDERED: PIPERACILLIN/TAZOBACTAM 3,375 MG in SODIUM CHLORIDE 0.9% 100 ML IV STA (23:34)
[2018-04-26] MEDS ORDERED: SODIUM CHLORIDE 0.9% 1,000 ML IV STA (23:34)
[2018-04-26] MEDS ORDERED: VANCOMYCIN INJ 1,500 MG in SODIUM CHLORIDE 0.9% 250 ML IV STA (23:34)
[2018-04-27] MEDS ORDERED: VANCOMYCIN INJ 1,750 MG in SODIUM CHLORIDE 0.9% 500 ML IV STA (00:18)
[2018-04-27 00:54] LABS: Basophils % 0.2 % (0.0-0.8); Eosinophils # 0.1 10*3/uL (0.0-0.87); Hematocrit 42.6 VOL% (35.7-47.0); Hemoglobin 14.6 GM/DL (12.0-16.0); Immature Granulocytes % 0.9 %; Immature Granulocytes Absolute 0.09 #; Lymphocytes # 3.6 10*3/uL (1.4-4.0); Lymphocytes % 34.7 % (21.3-54.2); Mean Corpuscular HGB Conc 34.3 GM/DL (32-36); Mean Corpuscular Hemoglobin 31 PG (27-34); Mean Corpuscular Volume 89.1 FL (87-102); Mean Platelet Volume 8.4 FL (9.6-12.0); Monocytes # 0.6 10*3/uL (0.11-0.8); Neutrophils % 57.2 % (38.7-73.9); Platelet Count 267 T/CUMM (130-400); Red Blood Count 4.78 MC/CUMM (3.8-5.5); Red Cell Distribution Width 11.8 % (9.3-17.3); White Blood Count 10.4 T/CUMM (4-12)
[2018-04-27 01:26] LABS: Alanine Aminotransferase 24 U/L (13-56); Albumin 3.5 G/DL (3.4-5.0); Alkaline Phosphatase 89 U/L (45-117); Aspartate Amino Transferase 8 U/L (0-37); Bilirubin,Total < 0.39 MG/DL (0.2-1.0); Blood Urea Nitrogen 11 MG/DL (7-18); Glucose 302 MG/DL (74-106); Osmolality,Calculated 279.1 MOS/KG (273-304); Sodium 135 MMOL/L (136-145); Total Protein 8.4 G/DL (6.4-8.3)
[2018-04-27 01:32] LABS: Lactic Acid 3.2 MMOL/L (0.4-2.0)
[2018-04-27] MEDS ORDERED: INSULIN REGULAR 100 UNIT/ML IV STA (01:38)
[2018-04-27] MEDS ORDERED: fentaNYL 100 MCG/2 ML VIAL IV STA (02:01)
[2018-04-27] MEDS ORDERED: ONDANSETRON 4 MG/2 ML VIAL IV STA (02:01)
[2018-04-27] MEDS ORDERED: ONDANSETRON 4 MG/2 ML VIAL IV PRN (02:57)
[2018-04-27] MEDS ORDERED: DEXTROSE 50% 25 GM/50 ML VIAL IV PRN ×2 (02:57→08:38)
[2018-04-27] MEDS ORDERED: MORPHINE 4 MG/1 ML VIAL IV PRN (02:57)
[2018-04-27] MEDS ORDERED: GLUCAGON 1 MG VIAL IM PRN ×2 (02:57→08:38)
[2018-04-27] MEDS: oxyCODONE/ACETAMINOPHEN 5-325 MG TABLET PO SCH ×3 (04:38→14:43)
[2018-04-27 05:20] LABS: Lactic Acid 2.4 MMOL/L (0.4-2.0)
[2018-04-27 07:28] LABS: Alanine Aminotransferase 22 U/L (13-56); Albumin 3.2 G/DL (3.4-5.0); Alkaline Phosphatase 78 U/L (45-117); Aspartate Amino Transferase 9 U/L (0-37); Bilirubin,Total < 0.39 MG/DL (0.2-1.0); Blood Urea Nitrogen 10 MG/DL (7-18); Calcium 8.8 MG/DL (8.5-10.1); Glucose 208 MG/DL (74-106); Osmolality,Calculated 279.7 MOS/KG (273-304); Potassium 3.6 MMOL/L (3.5-5.1); Sodium 138 MMOL/L (136-145); Total Protein 7.6 G/DL (6.4-8.3)
[2018-04-27] MEDS: INSULIN REGULAR 100 UNIT/ML SUBCUT SCH ×3 (08:33→17:24)
[2018-04-27] MEDS: GABAPENTIN 300 MG CAPSULE PO SCH ×2 (08:33→14:43)
[2018-04-27] MEDS ORDERED: PANTOPRAZOLE 40 MG TABLET PO SCH (09:00)
[2018-04-27] MEDS ORDERED: MAGNESIUM CHLORIDE 64 MG TABLET PO SCH (09:00)
[2018-04-27] MEDS ORDERED: PIPERACILLIN/TAZOBACTAM 3,375 MG in SODIUM CHLORIDE 0.9% 100 ML IV SCH (09:00)
[2018-04-27] MEDS ORDERED: VANCOMYCIN INJ 1,500 MG in SODIUM CHLORIDE 0.9% 500 ML IV SCH (14:00)
[2018-04-27 17:10] VITALS: BP 105/68
[2018-04-27] MEDS ORDERED: AMOXICILLIN/CLAV 875 MG TABLET PO SCH (21:00)
== END 2018-04-27 19:15 | disposition home or self-care (01) ==
LOC: N.ED 17:00 → N.EDINP 04-27 02:58 → INTOOBSV 04-27 02:58 → N.3E 04-27 03:47
PROVIDERS: ADMIT Internal Medicine; ATTEND Internal Medicine

== ENCOUNTER 2018-05-04 05:57 | Inpatient (IN) ==
[2018-05-04] MEDS ORDERED: DIAZEPAM 5 MG TABLET PO ONE (06:50)
[2018-05-04] MEDS ORDERED: PANTOPRAZOLE 40 MG TABLET PO ONE ×2 (06:50→07:20)
[2018-05-04] MEDS ORDERED: SCOPOLAMINE 1.5 MG PATCH TRANSDERM ONE ×2 (06:51→07:20)
[2018-05-04] MEDS ORDERED: ceFAZolin 1,000 MG VIAL ONE (07:20)
[2018-05-04] MEDS ORDERED: DIAZEPAM 5 MG TABLET ONE (07:20)
[2018-05-04] MEDS: LACTATED RINGERS 1,000 ML IV SCH ×2 (07:26→10:31)
[2018-05-04] MEDS ORDERED: ceFAZolin 1,000 MG in SYRINGE 1 EACH IV ONE (07:30)
[2018-05-04] MEDS ORDERED: BUPIVACAINE 0.5% 50 ML VIAL ONE (09:51)
[2018-05-04] MEDS ORDERED: LIDOCAINE 1% 20 ML VIAL ONE (09:51)
[2018-05-04] MEDS ORDERED: HYDROmorphone 2 MG/1 ML VIAL IV PRN (10:58)
[2018-05-04] MEDS ORDERED: PROPOFOL 200 MG/20 ML VIAL IV ONE (10:58)
[2018-05-04] MEDS ORDERED: ONDANSETRON 4 MG/2 ML VIAL IV PRN (10:58)
[2018-05-04] MEDS ORDERED: SEVOFLURANE 1 UNIT/15 MINUTE INH ONE (10:58)
[2018-05-04] MEDS ORDERED: fentaNYL 100 MCG/2 ML VIAL ONE (10:58)
[2018-05-04] MEDS ORDERED: DEXAMETHASONE 10 MG/1 ML VIAL ONE (10:59)
[2018-05-04] MEDS ORDERED: LACTATED RINGERS 1,000 ML IV ONE (10:59)
[2018-05-04] MEDS ORDERED: SUCCINYLCHOLINE 200 MG/10 ML VIAL ONE (10:59)
[2018-05-04] MEDS ORDERED: MIDAZOLAM 2 MG/2 ML VIAL ONE (10:59)
[2018-05-04] MEDS ORDERED: IBUPROFEN 200 MG TABLET PO PRN (13:13)
[2018-05-04] MEDS ORDERED: PROMETHAZINE 25 MG/1 ML VIAL IM PRN (13:13)
[2018-05-04] MEDS ORDERED: GLUCAGON 1 MG VIAL IM PRN (13:13)
[2018-05-04] MEDS ORDERED: INSULIN REGULAR 100 UNIT/ML SUBCUT SCH (13:13)
[2018-05-04] MEDS ORDERED: IBUPROFEN 400 MG TABLET PO PRN (13:13)
[2018-05-04] MEDS ORDERED: DEXTROSE 50% 25 GM/50 ML VIAL IV PRN (13:13)
[2018-05-04] MEDS ORDERED: diphenhydrAMINE CAP 50 MG CAPSULE PO PRN (13:21)
[2018-05-04] MEDS: INSULIN LISPRO 100 UNIT/ML SUBCUT SCH ×2 (14:07→17:40)
[2018-05-04] MEDS: GABAPENTIN 300 MG CAPSULE PO SCH ×2 (14:07→20:39)
[2018-05-04] MEDS: HYDROmorphone 2 MG/1 ML VIAL IV PRN ×2 (14:16→20:38)
[2018-05-04 15:03] LABS: Basophils % 0.1 % (0.0-0.8); Eosinophils % 0.3 % (0.00-10.9); Hematocrit 36.9 VOL% (35.7-47.0); Hemoglobin 12.9 GM/DL (12.0-16.0); Immature Granulocytes % 0.8 %; Immature Granulocytes Absolute 0.07 #; Lymphocytes # 0.9 10*3/uL (1.4-4.0); Lymphocytes % 9.9 % (21.3-54.2); Mean Corpuscular Hemoglobin 31 PG (27-34); Mean Corpuscular Volume 88.3 FL (87-102); Mean Platelet Volume 8.9 FL (9.6-12.0); Monocytes # 0.2 10*3/uL (0.11-0.8); Monocytes % 2.3 % (1.7-12.7); Neutrophils # 7.9 10*3/uL (1.4-7.4); Neutrophils % 86.6 % (38.7-73.9); Platelet Count 185 T/CUMM (130-400); Red Blood Count 4.18 MC/CUMM (3.8-5.5); Red Cell Distribution Width 11.9 % (9.3-17.3); White Blood Count 9.1 T/CUMM (4-12)
[2018-05-04 15:38] LABS: Calcium 8.8 MG/DL (8.5-10.1); Potassium 4.2 MMOL/L (3.5-5.1)
[2018-05-04 17:27] LABS: Sedimentation Rate-Westergren 97 MM/HR (0-20)
[2018-05-04] MEDS: INSULIN REGULAR 100 UNIT/ML SUBCUT SCH ×2 (17:40→23:46)
[2018-05-04] MEDS: PIPERACILLIN/TAZOBACTAM 3,375 MG in SODIUM CHLORIDE 0.9% 100 ML IV SCH (17:41)
[2018-05-04] MEDS: ONDANSETRON 4 MG/2 ML VIAL IV PRN (20:38)
[2018-05-04] MEDS: VANCOMYCIN INJ 1,500 MG in SODIUM CHLORIDE 0.9% 500 ML IV SCH (22:12)
[2018-05-04 23:34] LABS: Apearance,Urine CLEAR (Clear); Bacteria,Urine Occasional /HPF (Few); Bilirubin,Urine Negative (Negative); Blood, Urine Moderate mg/dL (Negative); Glucose,Urine (UA) >=500 mg/dL (Negative); Ketones,Urine 5 mg/dL (Negative); Nitrite,Urine Negative (Negative); Protein,Urine 30 MG/DL; RBC,Urine 1 /HPF (0-4); Squamous Epithelial Cell,Urine Occasional /HPF (0-10); Urine Color Straw (Yellow); Urine Specific Gravity 1.023 (1.001-1.035); Urine Urobilinogen < 2.0 EU/DL (0.2-1.0); WBC,Urine <1 /HPF (0-6)
[2018-05-05] MEDS: PIPERACILLIN/TAZOBACTAM 3,375 MG in SODIUM CHLORIDE 0.9% 100 ML IV SCH ×3 (00:33→16:40)
[2018-05-05] MEDS: HYDROmorphone 2 MG/1 ML VIAL IV PRN ×5 (00:49→23:05)
[2018-05-05 05:25] LABS: Basophils % 0.1 % (0.0-0.8); Eosinophils # 0.1 10*3/uL (0.0-0.87); Eosinophils % 0.6 % (0.00-10.9); Hematocrit 34.2 VOL% (35.7-47.0); Hemoglobin 11.6 GM/DL (12.0-16.0); Immature Granulocytes % 0.8 %; Immature Granulocytes Absolute 0.08 #; Lymphocytes % 20.1 % (21.3-54.2); Mean Corpuscular HGB Conc 33.9 GM/DL (32-36); Mean Corpuscular Hemoglobin 30 PG (27-34); Mean Corpuscular Volume 88.8 FL (87-102); Mean Platelet Volume 9.1 FL (9.6-12.0); Monocytes # 0.6 10*3/uL (0.11-0.8); Monocytes % 5.9 % (1.7-12.7); Neutrophils # 7.2 10*3/uL (1.4-7.4); Neutrophils % 72.5 % (38.7-73.9); Platelet Count 173 T/CUMM (130-400); Red Blood Count 3.85 MC/CUMM (3.8-5.5); Red Cell Distribution Width 11.9 % (9.3-17.3); White Blood Count 9.9 T/CUMM (4-12)
[2018-05-05] MEDS: ENOXAPARIN 40 MG/0.4 ML SYRINGE SUBCUT SCH (05:56)
[2018-05-05] MEDS: INSULIN REGULAR 100 UNIT/ML SUBCUT SCH ×4 (05:56→23:56)
[2018-05-05] MEDS: VANCOMYCIN INJ 1,500 MG in SODIUM CHLORIDE 0.9% 500 ML IV SCH ×2 (05:57→13:56)
[2018-05-05 06:07] LABS: Calcium 8.9 MG/DL (8.5-10.1); Osmolality,Calculated 285.7 MOS/KG (273-304); Potassium 3.8 MMOL/L (3.5-5.1)
[2018-05-05 07:00] LABS: Risk Ratio 3.7; VLDL CHOLESTEROL 60.8 MG/DL
[2018-05-05] MEDS: MAGNESIUM CHLORIDE 64 MG TABLET PO SCH (08:36)
[2018-05-05] MEDS: GABAPENTIN 300 MG CAPSULE PO SCH ×3 (08:36→23:14)
[2018-05-05] MEDS: INSULIN GLARGINE 100 UNIT/ML SUBCUT SCH ×2 (08:37→23:14)
[2018-05-05] MEDS: INSULIN LISPRO 100 UNIT/ML SUBCUT SCH ×3 (08:38→17:28)
[2018-05-05] MEDS: ONDANSETRON 4 MG/2 ML VIAL IV PRN ×4 (08:39→23:05)
[2018-05-05] MEDS: PANTOPRAZOLE 40 MG TABLET PO SCH (08:43)
[2018-05-05] MEDS ORDERED: INSULIN GLARGINE 100 UNIT/ML SUBCUT SCH (09:00)
[2018-05-05] MEDS: fentaNYL 50 MCG/HR PATCH TRANSDERM SCH (10:12)
[2018-05-05] MEDS ORDERED: metFORMIN 500 MG TABLET PO SCH (17:00)
[2018-05-05] MEDS ORDERED: VANCOMYCIN INJ 1,750 MG in SODIUM CHLORIDE 0.9% 500 ML IV SCH (22:30)
[2018-05-05] MEDS: ROSUVASTATIN 10 MG TABLET PO SCH (23:14)
[2018-05-05] MEDS: VANCOMYCIN INJ 2,000 MG in SODIUM CHLORIDE 0.9% 500 ML IV SCH (23:16)
[2018-05-06] MEDS: PIPERACILLIN/TAZOBACTAM 3,375 MG in SODIUM CHLORIDE 0.9% 100 ML IV SCH ×3 (02:29→21:43)
[2018-05-06] MEDS: HYDROmorphone 2 MG/1 ML VIAL IV PRN ×4 (03:41→21:50)
[2018-05-06 05:56] LABS: Basophils % 0.4 % (0.0-0.8); Eosinophils # 0.1 10*3/uL (0.0-0.87); Eosinophils % 1.2 % (0.00-10.9); Hematocrit 35.2 VOL% (35.7-47.0); Hemoglobin 11.7 GM/DL (12.0-16.0); Immature Granulocytes % 0.7 %; Immature Granulocytes Absolute 0.06 #; Lymphocytes # 2.3 10*3/uL (1.4-4.0); Lymphocytes % 27.7 % (21.3-54.2); Mean Corpuscular HGB Conc 33.2 GM/DL (32-36); Mean Corpuscular Hemoglobin 30 PG (27-34); Mean Corpuscular Volume 91.4 FL (87-102); Mean Platelet Volume 8.9 FL (9.6-12.0); Monocytes # 0.6 10*3/uL (0.11-0.8); Monocytes % 7.1 % (1.7-12.7); Neutrophils # 5.3 10*3/uL (1.4-7.4); Neutrophils % 62.9 % (38.7-73.9); Platelet Count 207 T/CUMM (130-400); Red Blood Count 3.85 MC/CUMM (3.8-5.5); Red Cell Distribution Width 12.2 % (9.3-17.3); White Blood Count 8.4 T/CUMM (4-12)
[2018-05-06] MEDS: VANCOMYCIN INJ 2,000 MG in SODIUM CHLORIDE 0.9% 500 ML IV SCH ×2 (06:31→17:43)
[2018-05-06] MEDS: ENOXAPARIN 40 MG/0.4 ML SYRINGE SUBCUT SCH (06:31)
[2018-05-06 06:37] LABS: Albumin 2.9 G/DL (3.4-5.0); Bilirubin,Total 0.5 MG/DL (0.2-1.0); Calcium 8.6 MG/DL (8.5-10.1); Osmolality,Calculated 284.7 MOS/KG (273-304); Potassium 3.6 MMOL/L (3.5-5.1)
[2018-05-06] MEDS: INSULIN REGULAR 100 UNIT/ML SUBCUT SCH ×4 (07:29→23:46)
[2018-05-06] MEDS: PANTOPRAZOLE 40 MG TABLET PO SCH (09:21)
[2018-05-06] MEDS: GABAPENTIN 300 MG CAPSULE PO SCH ×3 (09:21→21:44)
[2018-05-06] MEDS: MAGNESIUM CHLORIDE 64 MG TABLET PO SCH (09:21)
[2018-05-06] MEDS: INSULIN GLARGINE 100 UNIT/ML SUBCUT SCH ×2 (09:32→21:44)
[2018-05-06] MEDS: INSULIN LISPRO 100 UNIT/ML SUBCUT SCH ×3 (09:32→17:54)
[2018-05-06] MEDS ORDERED: FLUCONAZOLE 200 MG TABLET PO ONE (09:45)
[2018-05-06] MEDS: DULoxetine 20 MG CAPSULE PO SCH (11:09)
[2018-05-06] MEDS: ONDANSETRON 4 MG/2 ML VIAL IV PRN ×2 (15:15→21:46)
[2018-05-06] MEDS: ROSUVASTATIN 10 MG TABLET PO SCH (21:44)
[2018-05-07] MEDS: ONDANSETRON 4 MG/2 ML VIAL IV PRN ×4 (01:48→21:10)
[2018-05-07] MEDS: VANCOMYCIN INJ 2,000 MG in SODIUM CHLORIDE 0.9% 500 ML IV SCH ×3 (01:51→17:50)
[2018-05-07] MEDS: PIPERACILLIN/TAZOBACTAM 3,375 MG in SODIUM CHLORIDE 0.9% 100 ML IV SCH (04:14)
[2018-05-07] MEDS: ENOXAPARIN 40 MG/0.4 ML SYRINGE SUBCUT SCH (05:53)
[2018-05-07] MEDS: INSULIN REGULAR 100 UNIT/ML SUBCUT SCH ×3 (05:53→17:58)
[2018-05-07 07:22] LABS: Basophils % 0.2 % (0.0-0.8); Eosinophils # 0.1 10*3/uL (0.0-0.87); Eosinophils % 1.3 % (0.00-10.9); Hematocrit 35.1 VOL% (35.7-47.0); Hemoglobin 11.9 GM/DL (12.0-16.0); Immature Granulocytes % 0.4 %; Immature Granulocytes Absolute 0.02 #; Lymphocytes # 1.5 10*3/uL (1.4-4.0); Lymphocytes % 27.5 % (21.3-54.2); Mean Corpuscular HGB Conc 33.9 GM/DL (32-36); Mean Corpuscular Hemoglobin 31 PG (27-34); Mean Platelet Volume 8.4 FL (9.6-12.0); Monocytes # 0.4 10*3/uL (0.11-0.8); Monocytes % 6.9 % (1.7-12.7); Neutrophils # 3.4 10*3/uL (1.4-7.4); Neutrophils % 63.7 % (38.7-73.9); Platelet Count 202 T/CUMM (130-400); Red Cell Distribution Width 12.2 % (9.3-17.3); White Blood Count 5.4 T/CUMM (4-12)
[2018-05-07] MEDS: HYDROmorphone 2 MG/1 ML VIAL IV PRN ×3 (07:47→21:10)
[2018-05-07] MEDS ORDERED: DEXTROSE 50% 25 GM/50 ML VIAL IV PRN (07:49)
[2018-05-07] MEDS ORDERED: GLUCAGON 1 MG VIAL IM PRN (07:49)
[2018-05-07 07:54] LABS: Albumin 2.6 G/DL (3.4-5.0); Bilirubin,Total 0.5 MG/DL (0.2-1.0); Calcium 8.5 MG/DL (8.5-10.1); Osmolality,Calculated 282.1 MOS/KG (273-304); Potassium 3.8 MMOL/L (3.5-5.1); Total Protein 6.6 G/DL (6.4-8.3)
[2018-05-07] MEDS: INSULIN LISPRO 100 UNIT/ML SUBCUT SCH ×3 (08:55→17:47)
[2018-05-07] MEDS: INSULIN GLARGINE 100 UNIT/ML SUBCUT SCH ×2 (10:58→22:12)
[2018-05-07] MEDS: PANTOPRAZOLE 40 MG TABLET PO SCH (10:59)
[2018-05-07] MEDS: MAGNESIUM CHLORIDE 64 MG TABLET PO SCH (10:59)
[2018-05-07] MEDS: DULoxetine 20 MG CAPSULE PO SCH (10:59)
[2018-05-07] MEDS: GABAPENTIN 300 MG CAPSULE PO SCH ×3 (10:59→21:09)
[2018-05-07] MEDS: OMEGA 3 ACID ETHYL ESTERS 1 GM CAPSULE PO SCH (15:02)
[2018-05-07] MEDS: ceFAZolin 2,000 MG in SYRINGE 1 EACH IV SCH ×2 (15:44→21:03)
[2018-05-07] MEDS: ROSUVASTATIN 10 MG TABLET PO SCH (21:09)
[2018-05-08] MEDS: INSULIN REGULAR 100 UNIT/ML SUBCUT SCH ×3 (00:51→13:14)
[2018-05-08] MEDS: VANCOMYCIN INJ 2,000 MG in SODIUM CHLORIDE 0.9% 500 ML IV SCH ×2 (02:30→10:07)
[2018-05-08] MEDS: ceFAZolin 2,000 MG in SYRINGE 1 EACH IV SCH ×2 (05:02→13:13)
[2018-05-08] MEDS: HYDROmorphone 2 MG/1 ML VIAL IV PRN ×2 (05:37→16:49)
[2018-05-08] MEDS: ONDANSETRON 4 MG/2 ML VIAL IV PRN ×2 (05:38→16:48)
[2018-05-08] MEDS: ENOXAPARIN 40 MG/0.4 ML SYRINGE SUBCUT SCH (07:04)
[2018-05-08] MEDS: OMEGA 3 ACID ETHYL ESTERS 1 GM CAPSULE PO SCH (09:14)
[2018-05-08] MEDS: INSULIN GLARGINE 100 UNIT/ML SUBCUT SCH (09:14)
[2018-05-08] MEDS: DULoxetine 20 MG CAPSULE PO SCH (09:14)
[2018-05-08] MEDS: MAGNESIUM CHLORIDE 64 MG TABLET PO SCH (09:14)
[2018-05-08] MEDS: fentaNYL 50 MCG/HR PATCH TRANSDERM SCH ×2 (09:14→13:12)
[2018-05-08] MEDS: GABAPENTIN 300 MG CAPSULE PO SCH ×2 (09:14→16:49)
[2018-05-08] MEDS: PANTOPRAZOLE 40 MG TABLET PO SCH (09:14)
[2018-05-08] MEDS: INSULIN LISPRO 100 UNIT/ML SUBCUT SCH ×3 (09:15→17:48)
[2018-05-08] MEDS ORDERED: FLUCONAZOLE 150 MG TABLET PO ONE (13:36)
[2018-05-08 17:17] VITALS: BP 106/67
[2018-05-10] MEDS ORDERED: ERGOCALCIFEROL 50,000 UNIT CAPSULE PO SCH (09:00)
== END 2018-05-08 17:54 | DRG 638 ==
LOC: N.OR 05:57 → N.SDSINP 05:58 → N.5E 10:36
PROVIDERS: ADMIT Surgery; ATTEND Surgery

== ENCOUNTER 2018-07-16 14:06 | Inpatient (IN) ==
[2018-07-16 16:25] LABS: Calcium 8.6 MG/DL (8.5-10.1); Osmolality,Calculated 287.2 MOS/KG (273-304); Potassium 3.8 MMOL/L (3.5-5.1)
[2018-07-16] MEDS ORDERED: KETOROLAC 30 MG/1 ML VIAL IM STA (17:11)
[2018-07-16] MEDS ORDERED: KETOROLAC 60 MG/2 ML VIAL IM ONE (17:11)
[2018-07-16 17:13] LABS: Basophils % 0.1 % (0.0-0.8); Eosinophils # 0.1 10*3/uL (0.0-0.87); Eosinophils % 1.6 % (0.00-10.9); Hematocrit 38.1 VOL% (35.7-47.0); Hemoglobin 13.3 GM/DL (12.0-16.0); Immature Granulocytes % 0.4 %; Immature Granulocytes Absolute 0.03 #; Lymphocytes % 24.5 % (21.3-54.2); Mean Corpuscular HGB Conc 34.9 GM/DL (32-36); Mean Corpuscular Hemoglobin 30 PG (27-34); Mean Corpuscular Volume 86.6 FL (87-102); Mean Platelet Volume 9.4 FL (9.6-12.0); Monocytes # 0.6 10*3/uL (0.11-0.8); Monocytes % 7.1 % (1.7-12.7); Neutrophils # 5.3 10*3/uL (1.4-7.4); Neutrophils % 66.3 % (38.7-73.9); Platelet Count 249 T/CUMM (130-400); Red Cell Distribution Width 13.2 % (9.3-17.3)
[2018-07-16] MEDS ORDERED: PROMETHAZINE 25 MG/1 ML VIAL IM PRN (17:39)
[2018-07-16] MEDS ORDERED: DEXTROSE 50% 25 GM/50 ML VIAL IV PRN (17:39)
[2018-07-16] MEDS ORDERED: ONDANSETRON 4 MG/2 ML VIAL IV PRN (17:39)
[2018-07-16] MEDS ORDERED: GLUCAGON 1 MG VIAL IM PRN (17:39)
[2018-07-16] MEDS ORDERED: ACETAMINOPHEN 325 MG TABLET PO PRN (17:39)
[2018-07-16] MEDS ORDERED: LEVOFLOXACIN INJ 500 MG in PREMIX 1 EACH IV SCH (18:00)
[2018-07-16] MEDS ORDERED: INSULIN REGULAR 100 UNIT/ML IV ONE (18:40)
[2018-07-16] MEDS: SODIUM CHLORIDE 0.9% 1,000 ML IV SCH (18:50)
[2018-07-16] MEDS: INSULIN REGULAR 100 UNIT/ML SUBCUT SCH (19:56)
[2018-07-16] MEDS: HYDROmorphone 2 MG/1 ML VIAL IV PRN (19:58)
[2018-07-16] MEDS: AMPICILLIN INJ 1,000 MG in SODIUM CHLORIDE 0.9% 100 ML IV SCH (20:02)
[2018-07-16] MEDS ORDERED: INSULIN GLARGINE 100 UNIT/ML SUBCUT SCH (21:00)
[2018-07-16] MEDS: ENOXAPARIN 40 MG/0.4 ML SYRINGE SUBCUT SCH (22:24)
[2018-07-17] MEDS: INSULIN REGULAR 100 UNIT/ML SUBCUT SCH ×5 (00:48→20:35)
[2018-07-17 00:54] LABS: Apearance,Urine Slightly Hazy (Clear); Bacteria,Urine Many /HPF (Few); Bilirubin,Urine Negative (Negative); Blood, Urine Negative (Negative); Glucose,Urine (UA) >=500 mg/dL (Negative); Granular Casts,Urine 5 /LPF (0-1); Hyaline Casts,Urine 25 /LPF (0-3); Ketones,Urine Negative (Negative); Mucus,Urine Occasional /LPF (Occasional); Nitrite,Urine Negative (Negative); Protein,Urine 100 MG/DL; Squamous Epithelial Cell,Urine Occasional /HPF (0-10); Urine Color Yellow (Yellow); Urine Specific Gravity 1.045 (1.001-1.035); Urine Urobilinogen < 2.0 EU/DL (0.2-1.0); WBC,Urine 9 /HPF (0-6)
[2018-07-17] MEDS: HYDROmorphone 2 MG/1 ML VIAL IV PRN ×6 (01:00→21:41)
[2018-07-17] MEDS: AMPICILLIN INJ 1,000 MG in SODIUM CHLORIDE 0.9% 100 ML IV SCH ×2 (04:43→12:59)
[2018-07-17 06:00] LABS: Basophils % 0.3 % (0.0-0.8); Eosinophils # 0.2 10*3/uL (0.0-0.87); Eosinophils % 2.2 % (0.00-10.9); Hematocrit 35.5 VOL% (35.7-47.0); Hemoglobin 12.2 GM/DL (12.0-16.0); Immature Granulocytes % 0.6 %; Immature Granulocytes Absolute 0.04 #; Lymphocytes # 1.7 10*3/uL (1.4-4.0); Lymphocytes % 24.6 % (21.3-54.2); Mean Corpuscular HGB Conc 34.4 GM/DL (32-36); Mean Corpuscular Hemoglobin 30 PG (27-34); Mean Corpuscular Volume 88.1 FL (87-102); Mean Platelet Volume 9.1 FL (9.6-12.0); Monocytes # 0.5 10*3/uL (0.11-0.8); Monocytes % 7.8 % (1.7-12.7); Neutrophils # 4.4 10*3/uL (1.4-7.4); Neutrophils % 64.5 % (38.7-73.9); Platelet Count 220 T/CUMM (130-400); Red Blood Count 4.03 MC/CUMM (3.8-5.5); Red Cell Distribution Width 13.2 % (9.3-17.3); White Blood Count 6.8 T/CUMM (4-12)
[2018-07-17] MEDS: SODIUM CHLORIDE 0.9% 1,000 ML IV SCH ×3 (06:15→21:56)
[2018-07-17 06:21] LABS: Albumin 3.1 G/DL (3.4-5.0); Bilirubin,Total 0.4 MG/DL (0.2-1.0); Calcium 8.5 MG/DL (8.5-10.1); Osmolality,Calculated 286.7 MOS/KG (273-304)
[2018-07-17] MEDS ORDERED: INSULIN LISPRO 100 UNIT/ML SUBCUT SCH (08:00)
[2018-07-17] MEDS ORDERED: POTASSIUM CHLORIDE 20 MEQ TABLET PO ONE (08:31)
[2018-07-17] MEDS ORDERED: MAGNESIUM SULF RIDER 4 GM in PREMIX 1 EACH IV ONE (08:32)
[2018-07-17] MEDS ORDERED: PANTOPRAZOLE 40 MG TABLET PO SCH (09:00)
[2018-07-17] MEDS: LACTOBACILLUS ACIDOPHILUS/BULGARICUS CAPLET PO SCH ×2 (09:15→20:25)
[2018-07-17] MEDS: SODIUM HYPOCHLORITE 0.25% IRRIG 473 ML BOTTLE TOP SCH (09:15)
[2018-07-17] MEDS: INSULIN GLARGINE 100 UNIT/ML SUBCUT SCH ×2 (09:15→20:35)
[2018-07-17] MEDS: PANTOPRAZOLE 40 MG TABLET PO SCH ×2 (09:15→20:25)
[2018-07-17] MEDS: MAGNESIUM CHLORIDE 64 MG TABLET PO SCH ×2 (09:15→20:24)
[2018-07-17] MEDS: DULoxetine 20 MG CAPSULE PO SCH (09:15)
[2018-07-17] MEDS: GABAPENTIN 300 MG CAPSULE PO SCH ×3 (09:15→20:25)
[2018-07-17] MEDS ORDERED: HYDROmorphone 2 MG/1 ML VIAL IV ONE (09:30)
[2018-07-17] MEDS: METOCLOPRAMIDE 10 MG TABLET PO SCH ×3 (12:22→20:25)
[2018-07-17] MEDS: INSULIN LISPRO 100 UNIT/ML SUBCUT SCH ×2 (12:22→16:10)
[2018-07-17] MEDS: ENOXAPARIN 40 MG/0.4 ML SYRINGE SUBCUT SCH (20:25)
[2018-07-17] MEDS ORDERED: traZODone 50 MG TABLET PO SCH (21:00)
[2018-07-18] MEDS: HYDROmorphone 2 MG/1 ML VIAL IV PRN ×3 (02:37→09:52)
[2018-07-18] MEDS: SODIUM CHLORIDE 0.9% 1,000 ML IV SCH ×3 (03:33→12:23)
[2018-07-18 07:41] VITALS: BP 100/56
[2018-07-18] MEDS: INSULIN LISPRO 100 UNIT/ML SUBCUT SCH ×2 (09:39→12:13)
[2018-07-18] MEDS: INSULIN REGULAR 100 UNIT/ML SUBCUT SCH ×2 (09:39→12:15)
[2018-07-18] MEDS: SODIUM HYPOCHLORITE 0.25% IRRIG 473 ML BOTTLE TOP SCH (09:41)
[2018-07-18] MEDS: DULoxetine 20 MG CAPSULE PO SCH (09:49)
[2018-07-18] MEDS: MAGNESIUM CHLORIDE 64 MG TABLET PO SCH (09:49)
[2018-07-18] MEDS: GABAPENTIN 300 MG CAPSULE PO SCH (09:49)
[2018-07-18] MEDS: METOCLOPRAMIDE 10 MG TABLET PO SCH ×2 (09:50→12:16)
[2018-07-18] MEDS: PANTOPRAZOLE 40 MG TABLET PO SCH (09:50)
[2018-07-18] MEDS: INSULIN GLARGINE 100 UNIT/ML SUBCUT SCH (09:54)
[2018-07-18] MEDS: LACTOBACILLUS ACIDOPHILUS/BULGARICUS CAPLET PO SCH (11:57)
[2018-07-23] MEDS ORDERED: ERGOCALCIFEROL 50,000 UNIT CAPSULE PO SCH (09:00)
== END 2018-07-18 13:15 | disposition home health service (06) | DRG 566 ==
LOC: N.ED 14:06 → N.EDINP 17:39 → N.3E 18:40
PROVIDERS: ADMIT Internal Medicine; ATTEND Internal Medicine

== ENCOUNTER 2018-11-28 08:22 | Inpatient (IN) ==
[2018-11-28] MEDS ORDERED: SODIUM CHLORIDE 0.9% 1,000 ML IV STA (09:06)
[2018-11-28] MEDS ORDERED: INSULIN REGULAR 100 UNIT/ML IV STA ×2 (09:22→13:19)
[2018-11-28 09:56] LABS: Calcium 9.2 MG/DL (8.5-10.1); Osmolality,Calculated 294.8 MOS/KG (273-304); Potassium 4.6 MMOL/L (3.5-5.1)
[2018-11-28 10:07] LABS: Basophils % 0.4 % (0.0-0.8); Eosinophils # 0.2 10*3/uL (0.0-0.87); Eosinophils % 2.1 % (0.00-10.9); Hemoglobin 12.6 GM/DL (12.0-16.0); Immature Granulocytes % 0.7 %; Immature Granulocytes Absolute 0.06 #; Lymphocytes # 1.3 10*3/uL (1.4-4.0); Lymphocytes % 14.5 % (21.3-54.2); Mean Corpuscular HGB Conc 33.2 GM/DL (32-36); Mean Corpuscular Hemoglobin 31 PG (27-34); Mean Corpuscular Volume 92.5 FL (87-102); Mean Platelet Volume 9.3 FL (9.6-12.0); Monocytes # 0.5 10*3/uL (0.11-0.8); Monocytes % 5.4 % (1.7-12.7); Neutrophils # 6.9 10*3/uL (1.4-7.4); Neutrophils % 76.9 % (38.7-73.9); Platelet Count 207 T/CUMM (130-400); Red Blood Count 4.11 MC/CUMM (3.8-5.5); Red Cell Distribution Width 12.3 % (9.3-17.3); White Blood Count 8.9 T/CUMM (4-12)
[2018-11-28] MEDS ORDERED: CEFTAROLINE 600 MG in SODIUM CHLORIDE 0.9% 100 ML IV STA (10:34)
[2018-11-28] MEDS ORDERED: SODIUM CHLORIDE 0.9% 3,150 ML IV ONE (10:34)
[2018-11-28] MEDS ORDERED: ACETAMINOPHEN 325 MG TABLET PO PRN (11:03)
[2018-11-28] MEDS ORDERED: ALBUTEROL 2.5 MG/3 ML NEB RESP TX PRN (11:03)
[2018-11-28] MEDS ORDERED: PROMETHAZINE 25 MG/1 ML VIAL IM PRN (11:03)
[2018-11-28] MEDS ORDERED: ONDANSETRON 4 MG/2 ML VIAL IV PRN (11:03)
[2018-11-28] MEDS ORDERED: DEXTROSE 50% 25 GM/50 ML VIAL IV PRN ×2 (11:06)
[2018-11-28] MEDS ORDERED: MAGNESIUM SULF RIDER 4 GM in PREMIX 1 EACH IV PRN (11:06)
[2018-11-28] MEDS ORDERED: MAGNESIUM SULF RIDER 2 GM in PREMIX 1 EACH IV PRN (11:06)
[2018-11-28] MEDS ORDERED: SODIUM BICARB INJ 100 MEQ in STERILE WATER INJ 400 ML IV PRN (11:06)
[2018-11-28] MEDS ORDERED: SODIUM PHOSPHATE INJ 26.1 MMOL in SODIUM CHLORIDE 0.9% 250 ML IV PRN (11:06)
[2018-11-28] MEDS ORDERED: SODIUM CHLORIDE 0.9% 1,000 ML IV ONE (11:06)
[2018-11-28 11:09] LABS: Apearance,Urine CLEAR (Clear); Bilirubin,Urine Negative (Negative); Blood, Urine Negative (Negative); Glucose,Urine (UA) >=500 mg/dL (Negative); Ketones,Urine 5 mg/dL (Negative); Nitrite,Urine Negative (Negative); Protein,Urine Negative; RBC,Urine 1 /HPF (0-4); Squamous Epithelial Cell,Urine Occasional /HPF (0-10); Urine Color Straw (Yellow); Urine Specific Gravity 1.027 (1.001-1.035); Urine Urobilinogen < 2.0 EU/DL (0.2-1.0); WBC,Urine <1 /HPF (0-6)
[2018-11-28 11:21] LABS: ABG Base Excess 5.2 MMOL/L (-2.5-2.5); ABG HCO3 28.4 MMOL/L (20-26); ABG Oxygen Saturation 97.1 % (95-100); ABG PCO2 36.8 MM HG (35-48); ABG PH 7.505 (7.35-7.45); ABG PO2 94.8 MM HG (80-95); ABG TCO2 29.5 MMOL/L (23-27)
[2018-11-28] MEDS ORDERED: INSULIN REGULAR DRIP 100 ML IV SCH (11:30)
[2018-11-28] MEDS: PANTOPRAZOLE 40 MG VIAL IV SCH (11:48)
[2018-11-28] MEDS ORDERED: CHLORHEXIDINE 4% SOLN 118 ML BOTTLE TOP ONE (11:59)
[2018-11-28] MEDS: INSULIN LISPRO 100 UNIT/ML SUBCUT SCH ×7 (12:06→23:00)
[2018-11-28] MEDS ORDERED: SODIUM CHLORIDE 0.9% 1,000 ML IV SCH ×2 (12:07→16:07)
[2018-11-28] MEDS ORDERED: ACETAMINOPHEN/CODEINE 300-30 MG TABLET PO PRN (12:31)
[2018-11-28 14:03] LABS: Alanine Aminotransferase 31 U/L (13-56); Albumin 2.5 G/DL (3.4-5.0); Alkaline Phosphatase 103 U/L (45-117); Aspartate Amino Transferase 19 U/L (0-37); Bilirubin,Total < 0.39 MG/DL (0.2-1.0); Blood Urea Nitrogen 14 MG/DL (7-18); Calcium 8.4 MG/DL (8.5-10.1); Glucose 398 MG/DL (74-106); Osmolality,Calculated 287.1 MOS/KG (273-304); Potassium 3.5 MMOL/L (3.5-5.1); Sodium 135 MMOL/L (136-145); Total Protein 7.2 G/DL (6.4-8.3)
[2018-11-28] MEDS ORDERED: MAGNESIUM SULF RIDER 2 GM in PREMIX 1 EACH IV ONE (14:16)
[2018-11-28] MEDS ORDERED: MAGNESIUM SULF RIDER 50 ML IV ONE (14:29)
[2018-11-28] MEDS: GABAPENTIN 300 MG CAPSULE PO SCH ×2 (16:00→20:51)
[2018-11-28] MEDS: METOCLOPRAMIDE 10 MG TABLET PO SCH ×2 (17:01→20:51)
[2018-11-28] MEDS ORDERED: oxyCODONE/ACETAMINOPHEN 5-325 MG TABLET PO PRN (19:51)
[2018-11-28] MEDS: MAGNESIUM CHLORIDE 64 MG TABLET PO SCH (20:51)
[2018-11-28] MEDS: ENOXAPARIN 40 MG/0.4 ML SYRINGE SUBCUT SCH (20:52)
[2018-11-28] MEDS: NYSTATIN 500,000 UNIT/5 ML UDCUP SWISH/SWAL SCH (20:52)
[2018-11-28] MEDS: LACTOBACILLUS ACIDOPHILUS/BULGARICUS CAPLET PO SCH (20:53)
[2018-11-28] MEDS: traZODone 50 MG TABLET PO SCH (20:54)
[2018-11-28] MEDS: INSULIN GLARGINE 100 UNIT/ML SUBCUT SCH (20:55)
[2018-11-28] MEDS: CEFTAROLINE 600 MG in SODIUM CHLORIDE 0.9% 100 ML IV SCH (20:56)
[2018-11-28] MEDS ORDERED: PANTOPRAZOLE 40 MG TABLET PO SCH (21:00)
[2018-11-28] MEDS: POTASSIUM CHLORIDE RIDER 10 MEQ in PREMIX 1 EACH IV PRN (23:02)
[2018-11-29] MEDS: POTASSIUM CHLORIDE RIDER 10 MEQ in PREMIX 1 EACH IV PRN ×2 (00:35→03:10)
[2018-11-29] MEDS: INSULIN LISPRO 100 UNIT/ML SUBCUT SCH ×12 (00:35→21:06)
[2018-11-29] MEDS: SODIUM CHLORIDE 0.45% 1,000 ML IV SCH ×3 (04:18→21:04)
[2018-11-29 04:50] LABS: Basophils % 0.3 % (0.0-0.8); Eosinophils # 0.2 10*3/uL (0.0-0.87); Hematocrit 36.6 VOL% (35.7-47.0); Hemoglobin 12.1 GM/DL (12.0-16.0); Immature Granulocytes % 1.2 %; Immature Granulocytes Absolute 0.09 #; Lymphocytes # 1.9 10*3/uL (1.4-4.0); Lymphocytes % 24.7 % (21.3-54.2); Mean Corpuscular HGB Conc 33.1 GM/DL (32-36); Mean Corpuscular Hemoglobin 31 PG (27-34); Mean Corpuscular Volume 93.4 FL (87-102); Mean Platelet Volume 8.8 FL (9.6-12.0); Monocytes # 0.5 10*3/uL (0.11-0.8); Monocytes % 6.5 % (1.7-12.7); Neutrophils % 64.3 % (38.7-73.9); Platelet Count 199 T/CUMM (130-400); Red Blood Count 3.92 MC/CUMM (3.8-5.5); Red Cell Distribution Width 12.3 % (9.3-17.3); White Blood Count 7.7 T/CUMM (4-12)
[2018-11-29 05:26] LABS: Albumin 2.4 G/DL (3.4-5.0); Bilirubin,Total 0.9 MG/DL (0.2-1.0); Calcium 8.2 MG/DL (8.5-10.1); Osmolality,Calculated 278.7 MOS/KG (273-304); Potassium 3.6 MMOL/L (3.5-5.1); Risk Ratio 3.29; Thyroid Stimulating Hormone 2.16 uIU/ml (0.358-3.74); Total Protein 6.5 G/DL (6.4-8.3); VLDL CHOLESTEROL 64.8 MG/DL
[2018-11-29] MEDS ORDERED: FAMOTIDINE 20 MG TABLET PO ONE (06:00)
[2018-11-29] MEDS ORDERED: SCOPOLAMINE 1.5 MG PATCH TRANSDERM ONE (06:00)
[2018-11-29] MEDS: CEFTAROLINE 600 MG in SODIUM CHLORIDE 0.9% 100 ML IV SCH ×2 (08:40→21:08)
[2018-11-29] MEDS: PANTOPRAZOLE 40 MG VIAL IV SCH (08:40)
[2018-11-29] MEDS: INSULIN GLARGINE 100 UNIT/ML SUBCUT SCH ×2 (08:41→21:07)
[2018-11-29] MEDS ORDERED: ERGOCALCIFEROL 50,000 UNIT CAPSULE PO SCH (09:00)
[2018-11-29] MEDS ORDERED: LIDOCAINE 1%/EPI INJ 20 ML VIAL ONE (09:02)
[2018-11-29] MEDS ORDERED: ONDANSETRON 4 MG/2 ML VIAL IV PRN (10:26)
[2018-11-29] MEDS ORDERED: PROMETHAZINE INJ 25 MG in SODIUM CHLORIDE 0.9% 50 ML IV PRN (10:26)
[2018-11-29] MEDS ORDERED: MIDAZOLAM 2 MG/2 ML VIAL ONE (10:32)
[2018-11-29] MEDS ORDERED: fentaNYL 100 MCG/2 ML VIAL ONE (10:32)
[2018-11-29] MEDS ORDERED: PROPOFOL 200 MG/20 ML VIAL IV ONE (10:32)
[2018-11-29] MEDS ORDERED: PROMETHAZINE 25 MG/1 ML VIAL ONE ×2 (10:33→10:37)
[2018-11-29] MEDS ORDERED: KETAMINE 500 MG/10 ML VIAL ONE (10:33)
[2018-11-29] MEDS: HYDROmorphone 2 MG/1 ML VIAL IV PRN ×4 (10:35→10:51)
[2018-11-29] MEDS ORDERED: ONDANSETRON 4 MG/2 ML VIAL ONE (10:37)
[2018-11-29] MEDS ORDERED: HYDROmorphone 2 MG/1 ML VIAL ONE (10:37)
[2018-11-29] MEDS: GABAPENTIN 300 MG CAPSULE PO SCH ×3 (13:12→21:07)
[2018-11-29] MEDS: LACTOBACILLUS ACIDOPHILUS/BULGARICUS CAPLET PO SCH ×2 (13:12→21:07)
[2018-11-29] MEDS: MAGNESIUM CHLORIDE 64 MG TABLET PO SCH ×2 (13:13→21:07)
[2018-11-29] MEDS: METOCLOPRAMIDE 10 MG TABLET PO SCH ×3 (13:13→21:07)
[2018-11-29] MEDS: DULoxetine 20 MG CAPSULE PO SCH (13:13)
[2018-11-29] MEDS: NYSTATIN 500,000 UNIT/5 ML UDCUP SWISH/SWAL SCH ×4 (13:13→21:08)
[2018-11-29] MEDS ORDERED: INSULIN GLARGINE 100 UNIT/ML SUBCUT SCH (15:02)
[2018-11-29] MEDS: GEMFIBROZIL 600 MG TABLET PO SCH (16:57)
[2018-11-29] MEDS: traZODone 50 MG TABLET PO SCH (21:07)
[2018-11-29] MEDS: ENOXAPARIN 40 MG/0.4 ML SYRINGE SUBCUT SCH (21:08)
[2018-11-30] MEDS: INSULIN LISPRO 100 UNIT/ML SUBCUT SCH ×9 (00:57→20:38)
[2018-11-30 05:07] LABS: Basophils % 0.5 % (0.0-0.8); Eosinophils # 0.2 10*3/uL (0.0-0.87); Hemoglobin 11.4 GM/DL (12.0-16.0); Immature Granulocytes % 1.2 %; Immature Granulocytes Absolute 0.07 #; Lymphocytes # 1.6 10*3/uL (1.4-4.0); Lymphocytes % 28.3 % (21.3-54.2); Mean Corpuscular HGB Conc 32.6 GM/DL (32-36); Mean Corpuscular Hemoglobin 30 PG (27-34); Mean Corpuscular Volume 92.3 FL (87-102); Mean Platelet Volume 8.8 FL (9.6-12.0); Monocytes # 0.4 10*3/uL (0.11-0.8); Monocytes % 6.6 % (1.7-12.7); Neutrophils # 3.5 10*3/uL (1.4-7.4); Neutrophils % 60.4 % (38.7-73.9); Platelet Count 184 T/CUMM (130-400); Red Blood Count 3.79 MC/CUMM (3.8-5.5); Red Cell Distribution Width 12.3 % (9.3-17.3); White Blood Count 5.8 T/CUMM (4-12)
[2018-11-30 05:19] LABS: Albumin 2.2 G/DL (3.4-5.0); Bilirubin,Total 0.4 MG/DL (0.2-1.0); Calcium 8.2 MG/DL (8.5-10.1); Osmolality,Calculated 281.5 MOS/KG (273-304); Potassium 3.7 MMOL/L (3.5-5.1); Total Protein 6.2 G/DL (6.4-8.3)
[2018-11-30] MEDS: SODIUM CHLORIDE 0.45% 1,000 ML IV SCH ×4 (05:30→20:34)
[2018-11-30] MEDS: INSULIN GLARGINE 100 UNIT/ML SUBCUT SCH ×2 (08:44→20:35)
[2018-11-30] MEDS: PANTOPRAZOLE 40 MG VIAL IV SCH (08:44)
[2018-11-30] MEDS: GABAPENTIN 300 MG CAPSULE PO SCH ×3 (08:45→20:19)
[2018-11-30] MEDS: METOCLOPRAMIDE 10 MG TABLET PO SCH ×4 (08:45→21:32)
[2018-11-30] MEDS: DULoxetine 20 MG CAPSULE PO SCH (08:45)
[2018-11-30] MEDS: LACTOBACILLUS ACIDOPHILUS/BULGARICUS CAPLET PO SCH ×2 (08:45→20:18)
[2018-11-30] MEDS: GEMFIBROZIL 600 MG TABLET PO SCH ×2 (08:45→17:25)
[2018-11-30] MEDS: CEFTAROLINE 600 MG in SODIUM CHLORIDE 0.9% 100 ML IV SCH ×2 (08:46→20:17)
[2018-11-30] MEDS: MAGNESIUM CHLORIDE 64 MG TABLET PO SCH ×2 (08:46→20:19)
[2018-11-30] MEDS: NYSTATIN 500,000 UNIT/5 ML UDCUP SWISH/SWAL SCH ×4 (08:52→20:40)
[2018-11-30] MEDS ORDERED: KETOROLAC 10 MG TABLET PO PRN (11:14)
[2018-11-30] MEDS: MEPERIDINE 25 MG/1 ML VIAL IV PRN ×2 (11:21→21:33)
[2018-11-30] MEDS: SODIUM HYPOCHLORITE 0.25% IRRIG 473 ML BOTTLE TOP SCH (11:32)
[2018-11-30] MEDS: CHLORHEXIDINE 4% SOLN 118 ML BOTTLE TOP SCH (11:32)
[2018-11-30] MEDS: MEPERIDINE 50 MG TABLET PO PRN (17:25)
[2018-11-30] MEDS: traZODone 50 MG TABLET PO SCH (20:19)
[2018-11-30] MEDS: ENOXAPARIN 40 MG/0.4 ML SYRINGE SUBCUT SCH (20:20)
[2018-12-01] MEDS: INSULIN LISPRO 100 UNIT/ML SUBCUT SCH ×6 (00:42→13:07)
[2018-12-01] MEDS: MEPERIDINE 50 MG TABLET PO PRN (08:31)
[2018-12-01] MEDS: LACTOBACILLUS ACIDOPHILUS/BULGARICUS CAPLET PO SCH (08:33)
[2018-12-01] MEDS: MAGNESIUM CHLORIDE 64 MG TABLET PO SCH (08:33)
[2018-12-01] MEDS: DULoxetine 20 MG CAPSULE PO SCH (08:33)
[2018-12-01] MEDS: GEMFIBROZIL 600 MG TABLET PO SCH (08:33)
[2018-12-01] MEDS: METOCLOPRAMIDE 10 MG TABLET PO SCH ×2 (08:34→13:06)
[2018-12-01] MEDS: SODIUM CHLORIDE 0.45% 1,000 ML IV SCH ×2 (08:36→13:07)
[2018-12-01] MEDS: GABAPENTIN 300 MG CAPSULE PO SCH (08:39)
[2018-12-01] MEDS: INSULIN GLARGINE 100 UNIT/ML SUBCUT SCH (09:26)
[2018-12-01] MEDS: SODIUM HYPOCHLORITE 0.25% IRRIG 473 ML BOTTLE TOP SCH (09:27)
[2018-12-01] MEDS: CHLORHEXIDINE 4% SOLN 118 ML BOTTLE TOP SCH (09:27)
[2018-12-01] MEDS: CEFTAROLINE 600 MG in SODIUM CHLORIDE 0.9% 100 ML IV SCH (09:28)
[2018-12-01] MEDS: PANTOPRAZOLE 40 MG VIAL IV SCH (09:28)
[2018-12-01] MEDS: NYSTATIN 500,000 UNIT/5 ML UDCUP SWISH/SWAL SCH ×2 (10:23→13:09)
[2018-12-01 12:33] VITALS: BP 147/85
== END 2018-12-01 13:20 | disposition home or self-care (01) | DRG 580 ==
LOC: N.ED 08:22 → N.EDINP 11:03 → N.3E 15:32
PROVIDERS: ADMIT Internal Medicine; ATTEND Internal Medicine

== ENCOUNTER 2019-02-28 10:58 | Inpatient (IN) ==
[2019-02-28] MEDS ORDERED: SODIUM CHLORIDE 0.9% 1,000 ML IV STA (12:48)
[2019-02-28 14:15] LABS: Basophils % 0.2 % (0.0-0.8); Eosinophils # 0.2 10*3/uL (0.0-0.87); Eosinophils % 2.2 % (0.00-10.9); Hematocrit 39.2 VOL% (35.7-47.0); Hemoglobin 13.7 GM/DL (12.0-16.0); Immature Granulocytes % 0.6 %; Immature Granulocytes Absolute 0.05 #; Lymphocytes # 2.8 10*3/uL (1.4-4.0); Lymphocytes % 32.7 % (21.3-54.2); Mean Corpuscular HGB Conc 34.9 GM/DL (32-36); Mean Corpuscular Volume 88.3 FL (87-102); Mean Platelet Volume 8.9 FL (9.6-12.0); Monocytes % 6.1 % (1.7-12.7); Neutrophils % 58.2 % (38.7-73.9); Platelet Count 217 T/CUMM (130-400); Red Blood Count 4.44 MC/CUMM (3.8-5.5); White Blood Count 8.7 T/CUMM (4-12)
[2019-02-28 14:33] LABS: Calcium 9.6 MG/DL (8.5-10.1); Osmolality,Calculated 287.5 MOS/KG (273-304)
[2019-02-28] MEDS ORDERED: KETOROLAC 30 MG/1 ML VIAL ONE (14:47)
[2019-02-28] MEDS ORDERED: KETOROLAC 30 MG/1 ML VIAL IV STA (14:48)
[2019-02-28] MEDS ORDERED: INSULIN REGULAR 100 UNIT/ML SUBCUT STA (14:48)
[2019-02-28] MEDS ORDERED: MEPERIDINE 50 MG TABLET PO PRN ×2 (15:21)
[2019-02-28] MEDS ORDERED: KETOROLAC 10 MG TABLET PO PRN (15:21)
[2019-02-28] MEDS ORDERED: MEPERIDINE 50 MG/1 ML VIAL IV PRN (15:21)
[2019-02-28] MEDS ORDERED: VANCOMYCIN INJ 1,000 MG in SODIUM CHLORIDE 0.9% 250 ML IV SCH (15:30)
[2019-02-28] MEDS ORDERED: INSULIN REGULAR 100 UNIT/ML IV STA (15:44)
[2019-02-28] MEDS ORDERED: SODIUM CHLORIDE 0.9% 2,000 ML IV STA (15:45)
[2019-02-28] MEDS ORDERED: DEXTROSE 50% 25 GM/50 ML VIAL IV PRN (15:47)
[2019-02-28] MEDS ORDERED: ONDANSETRON 4 MG/2 ML VIAL IV PRN (15:47)
[2019-02-28] MEDS ORDERED: ACETAMINOPHEN 325 MG TABLET PO PRN (15:47)
[2019-02-28] MEDS ORDERED: BISACODYL 5 MG TABLET PO PRN (15:47)
[2019-02-28] MEDS ORDERED: GLUCAGON 1 MG VIAL IM PRN (15:47)
[2019-02-28] MEDS ORDERED: VANCOMYCIN 1,000 MG VIAL ONE (16:01)
[2019-02-28 16:27] LABS: Thyroid Stimulating Hormone 1.81 uIU/ml (0.358-3.74)
[2019-02-28] MEDS ORDERED: VANCOMYCIN INJ 750 MG in SODIUM CHLORIDE 0.9% 250 ML IV ONE (18:00)
[2019-02-28] MEDS ORDERED: ONDANSETRON 4 MG/2 ML VIAL IV ONE (19:04)
[2019-02-28] MEDS: SODIUM CHLORIDE 0.9% 1,000 ML IV SCH (20:33)
[2019-02-28] MEDS: MEPERIDINE 25 MG/1 ML VIAL IV PRN (20:49)
[2019-02-28] MEDS: traZODone 50 MG TABLET PO SCH (23:27)
[2019-02-28] MEDS: GABAPENTIN 300 MG CAPSULE PO SCH (23:28)
[2019-02-28] MEDS: INSULIN GLARGINE 100 UNIT/ML SUBCUT SCH (23:46)
[2019-02-28] MEDS: INSULIN REGULAR 100 UNIT/ML SUBCUT SCH (23:48)
[2019-02-28] MEDS: METOCLOPRAMIDE 10 MG TABLET PO SCH ×2 (23:56→23:57)
[2019-02-28] MEDS: GEMFIBROZIL 600 MG TABLET PO SCH (23:57)
[2019-02-28] MEDS: ONDANSETRON 4 MG/2 ML VIAL IV PRN (23:58)
[2019-03-01 06:00] LABS: Basophils % 0.3 % (0.0-0.8); Eosinophils # 0.2 10*3/uL (0.0-0.87); Eosinophils % 3.1 % (0.00-10.9); Hematocrit 33.8 VOL% (35.7-47.0); Hemoglobin 11.6 GM/DL (12.0-16.0); Immature Granulocytes % 0.5 %; Immature Granulocytes Absolute 0.03 #; Lymphocytes # 2.4 10*3/uL (1.4-4.0); Lymphocytes % 36.9 % (21.3-54.2); Mean Corpuscular HGB Conc 34.3 GM/DL (32-36); Mean Corpuscular Volume 91.6 FL (87-102); Mean Platelet Volume 9.2 FL (9.6-12.0); Monocytes % 7.5 % (1.7-12.7); Neutrophils % 51.7 % (38.7-73.9); Platelet Count 159 T/CUMM (130-400); Red Blood Count 3.69 MC/CUMM (3.8-5.5); Red Cell Distribution Width 11.9 % (9.3-17.3); White Blood Count 6.4 T/CUMM (4-12)
[2019-03-01 06:22] LABS: Alanine Aminotransferase 22 U/L (13-56); Albumin 2.3 G/DL (3.4-5.0); Alkaline Phosphatase 72 U/L (45-117); Aspartate Amino Transferase 22 U/L (0-37); Bilirubin,Total < 0.39 MG/DL (0.2-1.0); Blood Urea Nitrogen 9 MG/DL (7-18); Calcium 8.3 MG/DL (8.5-10.1); Glucose 223 MG/DL (74-106); Osmolality,Calculated 288.1 MOS/KG (273-304)
[2019-03-01] MEDS ORDERED: BUPIVACAINE MPF 0.25% 30 ML VIAL ONE (07:13)
[2019-03-01] MEDS ORDERED: LIDOCAINE 1%/EPI INJ 20 ML VIAL ONE (07:13)
[2019-03-01] MEDS ORDERED: SCOPOLAMINE 1.5 MG PATCH TRANSDERM ONE ×2 (07:35→07:43)
[2019-03-01] MEDS ORDERED: LACTATED RINGERS 1,000 ML IV SCH (08:00)
[2019-03-01] MEDS ORDERED: fentaNYL 100 MCG/2 ML VIAL ONE (09:17)
[2019-03-01] MEDS ORDERED: PROPOFOL 200 MG/20 ML VIAL IV ONE (09:17)
[2019-03-01] MEDS ORDERED: ONDANSETRON 4 MG/2 ML VIAL ONE (09:17)
[2019-03-01] MEDS ORDERED: MIDAZOLAM 2 MG/2 ML VIAL ONE (09:17)
[2019-03-01] MEDS ORDERED: SEVOFLURANE 1 UNIT/15 MINUTE INH ONE (09:17)
[2019-03-01] MEDS ORDERED: ROCURONIUM 100 MG/10 ML VIAL IV ONE (09:18)
[2019-03-01] MEDS: PANTOPRAZOLE 40 MG TABLET PO SCH (11:34)
[2019-03-01] MEDS: DULoxetine 20 MG CAPSULE PO SCH (11:34)
[2019-03-01] MEDS: glyBURIDE 5 MG TABLET PO SCH ×2 (11:35→16:00)
[2019-03-01] MEDS: GABAPENTIN 300 MG CAPSULE PO SCH ×3 (11:35→21:40)
[2019-03-01] MEDS: METOCLOPRAMIDE 10 MG TABLET PO SCH ×4 (11:36→21:40)
[2019-03-01] MEDS: GEMFIBROZIL 600 MG TABLET PO SCH ×2 (11:37→16:10)
[2019-03-01] MEDS: INSULIN REGULAR 100 UNIT/ML SUBCUT SCH ×5 (11:38→21:48)
[2019-03-01] MEDS: INSULIN GLARGINE 100 UNIT/ML SUBCUT SCH ×2 (11:39→21:40)
[2019-03-01] MEDS: MEPERIDINE 25 MG/1 ML VIAL IV PRN ×2 (12:02→16:13)
[2019-03-01] MEDS: VANCOMYCIN INJ 1,750 MG in SODIUM CHLORIDE 0.9% 500 ML IV SCH (13:31)
[2019-03-01] MEDS: SODIUM CHLORIDE 0.9% 1,000 ML IV SCH ×2 (15:37→21:47)
[2019-03-01] MEDS: cefTRIAXone 1,000 MG in SYRINGE 1 EACH IV SCH (16:11)
[2019-03-01] MEDS: INSULIN LISPRO 100 UNIT/ML SUBCUT SCH (16:15)
[2019-03-01] MEDS: traZODone 50 MG TABLET PO SCH (21:40)
[2019-03-02] MEDS: VANCOMYCIN INJ 1,750 MG in SODIUM CHLORIDE 0.9% 500 ML IV SCH ×2 (01:03→12:30)
[2019-03-02] MEDS: MEPERIDINE 25 MG/1 ML VIAL IV PRN ×3 (01:18→22:30)
[2019-03-02] MEDS: ONDANSETRON 4 MG/2 ML VIAL IV PRN (07:34)
[2019-03-02 07:45] LABS: Basophils % 0.2 % (0.0-0.8); Eosinophils # 0.1 10*3/uL (0.0-0.87); Eosinophils % 2.3 % (0.00-10.9); Hematocrit 37.5 VOL% (35.7-47.0); Immature Granulocytes Absolute 0.05 #; Lymphocytes # 1.2 10*3/uL (1.4-4.0); Lymphocytes % 24.8 % (21.3-54.2); Mean Platelet Volume 8.7 FL (9.6-12.0); Neutrophils % 64.7 % (38.7-73.9); Platelet Count 165 T/CUMM (130-400); Red Blood Count 3.99 MC/CUMM (3.8-5.5); White Blood Count 4.8 T/CUMM (4-12)
[2019-03-02 08:00] LABS: Calcium 8.1 MG/DL (8.5-10.1); Osmolality,Calculated 285.3 MOS/KG (273-304)
[2019-03-02] MEDS ORDERED: ALBUTEROL/IPRATROPIUM 3 ML NEB RESP TX PRN ×2 (08:16→10:30)
[2019-03-02] MEDS ORDERED: FUROSEMIDE 40 MG/4 ML VIAL IV ONE ×2 (08:16→16:19)
[2019-03-02] MEDS: METOCLOPRAMIDE 10 MG TABLET PO SCH ×4 (09:03→22:20)
[2019-03-02] MEDS: GEMFIBROZIL 600 MG TABLET PO SCH ×2 (09:03→16:42)
[2019-03-02] MEDS: GABAPENTIN 300 MG CAPSULE PO SCH ×3 (09:03→22:20)
[2019-03-02] MEDS: DULoxetine 20 MG CAPSULE PO SCH (09:03)
[2019-03-02] MEDS: glyBURIDE 5 MG TABLET PO SCH ×2 (09:11→16:43)
[2019-03-02] MEDS: INSULIN REGULAR 100 UNIT/ML SUBCUT SCH ×5 (09:11→22:21)
[2019-03-02] MEDS: INSULIN GLARGINE 100 UNIT/ML SUBCUT SCH ×3 (09:11→22:20)
[2019-03-02] MEDS: PANTOPRAZOLE 40 MG TABLET PO SCH ×2 (09:11→09:13)
[2019-03-02] MEDS: SODIUM CHLORIDE 0.9% 1,000 ML IV SCH (10:58)
[2019-03-02] MEDS: cefTRIAXone 1,000 MG in SYRINGE 1 EACH IV SCH (15:20)
[2019-03-02] MEDS: methylPREDNISolone SOD SUC 40 MG/1 ML VIAL IV SCH (16:58)
[2019-03-02] MEDS: traZODone 50 MG TABLET PO SCH (22:20)
[2019-03-03] MEDS: VANCOMYCIN INJ 1,750 MG in SODIUM CHLORIDE 0.9% 500 ML IV SCH ×3 (01:50→17:05)
[2019-03-03] MEDS: methylPREDNISolone SOD SUC 40 MG/1 ML VIAL IV SCH (04:47)
[2019-03-03] MEDS: MEPERIDINE 25 MG/1 ML VIAL IV PRN ×3 (04:52→13:38)
[2019-03-03] MEDS: SODIUM CHLORIDE 0.9% 1,000 ML IV SCH (07:50)
[2019-03-03] MEDS: cefTRIAXone 1,000 MG in SYRINGE 1 EACH IV SCH ×2 (07:51→17:04)
[2019-03-03] MEDS: glyBURIDE 5 MG TABLET PO SCH ×3 (07:51→17:04)
[2019-03-03] MEDS: INSULIN LISPRO 100 UNIT/ML SUBCUT SCH ×3 (07:51→17:05)
[2019-03-03] MEDS: METOCLOPRAMIDE 10 MG TABLET PO SCH ×3 (08:56→17:04)
[2019-03-03] MEDS: GEMFIBROZIL 600 MG TABLET PO SCH ×2 (08:56→17:04)
[2019-03-03] MEDS: DULoxetine 20 MG CAPSULE PO SCH (08:56)
[2019-03-03] MEDS: INSULIN GLARGINE 100 UNIT/ML SUBCUT SCH (08:57)
[2019-03-03] MEDS: PANTOPRAZOLE 40 MG TABLET PO SCH (08:57)
[2019-03-03] MEDS: INSULIN REGULAR 100 UNIT/ML SUBCUT SCH ×3 (08:57→17:04)
[2019-03-03] MEDS: GABAPENTIN 300 MG CAPSULE PO SCH ×2 (08:57→15:32)
[2019-03-03 12:23] VITALS: BP 111/70
[2019-03-03 14:56] LABS: Osmolality,Calculated 280.2 MOS/KG (273-304)
== END 2019-03-03 18:26 | disposition home or self-care (01) | DRG 364 ==
LOC: N.ED 10:58 → SUATTDRO 15:56 → N.EDINP 15:56 → N.5E 16:26
PROVIDERS: ADMIT Internal Medicine; ATTEND Internal Medicine

== ENCOUNTER 2019-03-15 15:52 | Observation (INO) ==
[2019-03-15] MEDS ORDERED: SODIUM CHLORIDE 0.9% 1,000 ML IV STA (16:11)
[2019-03-15] MEDS ORDERED: CEFTAROLINE 600 MG in SODIUM CHLORIDE 0.9% 100 ML IV STA (16:11)
[2019-03-15 16:44] LABS: Basophils % 0.3 % (0.0-0.8); Eosinophils # 0.2 10*3/uL (0.0-0.87); Eosinophils % 1.4 % (0.00-10.9); Hematocrit 36.6 VOL% (35.7-47.0); Hemoglobin 12.6 GM/DL (12.0-16.0); Immature Granulocytes % 0.7 %; Immature Granulocytes Absolute 0.08 #; Lymphocytes # 1.9 10*3/uL (1.4-4.0); Lymphocytes % 15.8 % (21.3-54.2); Mean Corpuscular HGB Conc 34.4 GM/DL (32-36); Mean Corpuscular Volume 89.1 FL (87-102); Monocytes % 5.6 % (1.7-12.7); Neutrophils % 76.2 % (38.7-73.9); Platelet Count 195 T/CUMM (130-400); Red Blood Count 4.11 MC/CUMM (3.8-5.5); Red Cell Distribution Width 11.8 % (9.3-17.3); White Blood Count 11.9 T/CUMM (4-12)
[2019-03-15] MEDS ORDERED: INSULIN REGULAR 100 UNIT/ML IV STA (16:58)
[2019-03-15 17:03] LABS: Alanine Aminotransferase 32 U/L (13-56); Albumin 2.9 G/DL (3.4-5.0); Alkaline Phosphatase 88 U/L (45-117); Aspartate Amino Transferase 15 U/L (0-37); Bilirubin,Total < 0.39 MG/DL (0.2-1.0); Blood Urea Nitrogen 9 MG/DL (7-18); Glucose 489 MG/DL (74-106); Osmolality,Calculated 290.1 MOS/KG (273-304)
[2019-03-15] MEDS ORDERED: MAGNESIUM SULF RIDER 2 GM in PREMIX 1 EACH IV STA (17:14)
[2019-03-15] MEDS ORDERED: KETOROLAC 30 MG/1 ML VIAL ONE (17:18)
[2019-03-15] MEDS ORDERED: KETOROLAC 30 MG/1 ML VIAL IV STA (17:20)
[2019-03-15] MEDS ORDERED: ONDANSETRON 4 MG/2 ML VIAL IV PRN (18:18)
[2019-03-15] MEDS ORDERED: DEXTROSE 10% 250 ML BAG IV PRN (18:18)
[2019-03-15] MEDS ORDERED: NICOTINE 21 MG/24 HR PATCH TRANSDERM PRN (18:18)
[2019-03-15] MEDS ORDERED: GLUCAGON 1 MG VIAL IM PRN (18:18)
[2019-03-15] MEDS: ENOXAPARIN 40 MG/0.4 ML SYRINGE SUBCUT SCH (21:58)
[2019-03-15] MEDS: INSULIN LISPRO 100 UNIT/ML SUBCUT SCH (21:59)
[2019-03-15] MEDS: SODIUM CHLORIDE 0.9% 1,000 ML IV SCH (22:00)
[2019-03-15] MEDS: VANCOMYCIN INJ 1,500 MG in SODIUM CHLORIDE 0.9% 500 ML IV SCH (22:00)
[2019-03-15] MEDS: MORPHINE 4 MG/1 ML VIAL IV PRN (22:16)
[2019-03-16 02:42] LABS: Basophils % 0.2 % (0.0-0.8); Eosinophils # 0.2 10*3/uL (0.0-0.87); Eosinophils % 1.3 % (0.00-10.9); Hematocrit 35.1 VOL% (35.7-47.0); Hemoglobin 11.9 GM/DL (12.0-16.0); Immature Granulocytes % 0.8 %; Immature Granulocytes Absolute 0.09 #; Lymphocytes # 2.3 10*3/uL (1.4-4.0); Lymphocytes % 19.3 % (21.3-54.2); Mean Corpuscular HGB Conc 33.9 GM/DL (32-36); Mean Platelet Volume 8.9 FL (9.6-12.0); Neutrophils % 72.4 % (38.7-73.9); Platelet Count 188 T/CUMM (130-400); Red Cell Distribution Width 11.9 % (9.3-17.3); White Blood Count 11.7 T/CUMM (4-12)
[2019-03-16] MEDS: MORPHINE 4 MG/1 ML VIAL IV PRN ×5 (02:42→23:58)
[2019-03-16 02:54] LABS: Risk Ratio 4.08
[2019-03-16 02:55] LABS: Alanine Aminotransferase 28 U/L (13-56); Albumin 2.6 G/DL (3.4-5.0); Alkaline Phosphatase 78 U/L (45-117); Aspartate Amino Transferase 13 U/L (0-37); Bilirubin,Total < 0.39 MG/DL (0.2-1.0); Blood Urea Nitrogen 11 MG/DL (7-18); Calcium 8.5 MG/DL (8.5-10.1); Glucose 378 MG/DL (74-106); Osmolality,Calculated 291.5 MOS/KG (273-304); Total Protein 6.4 G/DL (6.4-8.3)
[2019-03-16] MEDS: VANCOMYCIN INJ 1,500 MG in SODIUM CHLORIDE 0.9% 500 ML IV SCH ×3 (06:08→21:51)
[2019-03-16] MEDS: INSULIN LISPRO 100 UNIT/ML SUBCUT SCH ×5 (08:40→21:46)
[2019-03-16] MEDS: SODIUM CHLORIDE 0.9% 1,000 ML IV SCH ×4 (10:15→19:13)
[2019-03-16] MEDS: PANTOPRAZOLE 40 MG TABLET PO SCH (12:01)
[2019-03-16] MEDS ORDERED: POTASSIUM CHLORIDE 10 MEQ TABLET PO PRN (12:19)
[2019-03-16] MEDS ORDERED: FUROSEMIDE 20 MG TABLET PO PRN (12:19)
[2019-03-16] MEDS: MAGNESIUM CHLORIDE 64 MG TABLET PO SCH ×2 (14:03→21:47)
[2019-03-16] MEDS: GABAPENTIN 300 MG CAPSULE PO SCH ×2 (15:21→21:48)
[2019-03-16] MEDS: METOCLOPRAMIDE 10 MG TABLET PO SCH ×2 (17:09→21:47)
[2019-03-16] MEDS: glyBURIDE 5 MG TABLET PO SCH (17:09)
[2019-03-16] MEDS: GEMFIBROZIL 600 MG TABLET PO SCH (17:09)
[2019-03-16] MEDS ORDERED: INSULIN GLARGINE 100 UNIT/ML SUBCUT SCH (21:00)
[2019-03-16] MEDS: traZODone 50 MG TABLET PO SCH (21:47)
[2019-03-16] MEDS: LACTOBACILLUS ACIDOPHILUS/BULGARICUS CAPLET PO SCH (21:47)
[2019-03-16] MEDS: ENOXAPARIN 40 MG/0.4 ML SYRINGE SUBCUT SCH (21:48)
[2019-03-17] MEDS: SODIUM CHLORIDE 0.9% 1,000 ML IV SCH ×4 (04:56→21:07)
[2019-03-17] MEDS: VANCOMYCIN INJ 1,500 MG in SODIUM CHLORIDE 0.9% 500 ML IV SCH ×3 (06:14→21:19)
[2019-03-17 06:21] LABS: Basophils % 0.4 % (0.0-0.8); Eosinophils # 0.1 10*3/uL (0.0-0.87); Eosinophils % 2.4 % (0.00-10.9); Hematocrit 31.7 VOL% (35.7-47.0); Hemoglobin 10.6 GM/DL (12.0-16.0); Immature Granulocytes % 1.2 %; Immature Granulocytes Absolute 0.06 #; Lymphocytes # 1.6 10*3/uL (1.4-4.0); Lymphocytes % 31.8 % (21.3-54.2); Mean Corpuscular HGB Conc 33.4 GM/DL (32-36); Mean Corpuscular Volume 91.6 FL (87-102); Mean Platelet Volume 9.4 FL (9.6-12.0); Monocytes % 8.7 % (1.7-12.7); Neutrophils % 55.5 % (38.7-73.9); Platelet Count 146 T/CUMM (130-400); Red Blood Count 3.46 MC/CUMM (3.8-5.5)
[2019-03-17 06:45] LABS: Albumin 2.3 G/DL (3.4-5.0); Bilirubin,Total 0.5 MG/DL (0.2-1.0); Calcium 8.5 MG/DL (8.5-10.1); Total Protein 5.9 G/DL (6.4-8.3)
[2019-03-17] MEDS ORDERED: LIDOCAINE 1%/EPI INJ 20 ML VIAL ONE (08:23)
[2019-03-17] MEDS ORDERED: BUPIVACAINE 0.25% /EPI 10 ML VIAL ONE (08:23)
[2019-03-17] MEDS: INSULIN LISPRO 100 UNIT/ML SUBCUT SCH ×7 (08:33→21:11)
[2019-03-17] MEDS ORDERED: INSULIN GLARGINE 100 UNIT/ML SUBCUT SCH (09:00)
[2019-03-17] MEDS ORDERED: SCOPOLAMINE 1.5 MG PATCH TRANSDERM ONE ×2 (09:10→09:16)
[2019-03-17] MEDS ORDERED: PROPOFOL 200 MG/20 ML VIAL IV ONE (10:11)
[2019-03-17] MEDS ORDERED: MIDAZOLAM 2 MG/2 ML VIAL ONE (10:12)
[2019-03-17] MEDS ORDERED: fentaNYL 100 MCG/2 ML VIAL ONE (10:12)
[2019-03-17] MEDS ORDERED: ONDANSETRON 4 MG/2 ML VIAL IV PRN (10:26)
[2019-03-17] MEDS: HYDROmorphone 2 MG/1 ML VIAL IV PRN ×2 (10:30→10:43)
[2019-03-17] MEDS: GEMFIBROZIL 600 MG TABLET PO SCH ×2 (11:22→16:15)
[2019-03-17] MEDS: METOCLOPRAMIDE 10 MG TABLET PO SCH ×4 (11:22→21:11)
[2019-03-17] MEDS: GABAPENTIN 300 MG CAPSULE PO SCH ×3 (11:43→21:11)
[2019-03-17] MEDS: glyBURIDE 5 MG TABLET PO SCH ×2 (11:43→16:15)
[2019-03-17] MEDS: LACTOBACILLUS ACIDOPHILUS/BULGARICUS CAPLET PO SCH ×2 (11:43→21:10)
[2019-03-17] MEDS: MAGNESIUM CHLORIDE 64 MG TABLET PO SCH ×2 (12:07→21:11)
[2019-03-17] MEDS: PANTOPRAZOLE 40 MG TABLET PO SCH (12:07)
[2019-03-17] MEDS: DULoxetine 20 MG CAPSULE PO SCH (12:08)
[2019-03-17] MEDS: MORPHINE 4 MG/1 ML VIAL IV PRN ×2 (16:14→21:19)
[2019-03-17] MEDS: traZODone 50 MG TABLET PO SCH (21:10)
[2019-03-17] MEDS: ENOXAPARIN 40 MG/0.4 ML SYRINGE SUBCUT SCH (21:11)
[2019-03-17] MEDS: INSULIN GLARGINE 100 UNIT/ML SUBCUT SCH (21:11)
[2019-03-18] MEDS: MORPHINE 4 MG/1 ML VIAL IV PRN ×2 (02:40→09:10)
[2019-03-18] MEDS: SODIUM CHLORIDE 0.9% 1,000 ML IV SCH (04:41)
[2019-03-18 05:14] LABS: Basophils % 0.4 % (0.0-0.8); Eosinophils # 0.2 10*3/uL (0.0-0.87); Eosinophils % 3.4 % (0.00-10.9); Hematocrit 33.7 VOL% (35.7-47.0); Immature Granulocytes % 1.4 %; Immature Granulocytes Absolute 0.07 #; Lymphocytes # 1.5 10*3/uL (1.4-4.0); Lymphocytes % 30.4 % (21.3-54.2); Mean Corpuscular HGB Conc 32.6 GM/DL (32-36); Mean Corpuscular Volume 93.6 FL (87-102); Mean Platelet Volume 9.3 FL (9.6-12.0); Monocytes % 8.1 % (1.7-12.7); Neutrophils % 56.3 % (38.7-73.9); Platelet Count 139 T/CUMM (130-400); Red Cell Distribution Width 11.9 % (9.3-17.3); White Blood Count 4.9 T/CUMM (4-12)
[2019-03-18 05:35] LABS: Alanine Aminotransferase 22 U/L (13-56); Albumin 2.1 G/DL (3.4-5.0); Alkaline Phosphatase 70 U/L (45-117); Aspartate Amino Transferase 21 U/L (0-37); Bilirubin,Total < 0.39 MG/DL (0.2-1.0); Blood Urea Nitrogen 11 MG/DL (7-18); Calcium 8.2 MG/DL (8.5-10.1); Glucose 354 MG/DL (74-106); Osmolality,Calculated 287.7 MOS/KG (273-304); Total Protein 5.9 G/DL (6.4-8.3)
[2019-03-18] MEDS: VANCOMYCIN INJ 1,500 MG in SODIUM CHLORIDE 0.9% 500 ML IV SCH (05:53)
[2019-03-18] MEDS: INSULIN LISPRO 100 UNIT/ML SUBCUT SCH ×2 (07:39→09:09)
[2019-03-18] MEDS: GEMFIBROZIL 600 MG TABLET PO SCH (08:59)
[2019-03-18] MEDS: METOCLOPRAMIDE 10 MG TABLET PO SCH (08:59)
[2019-03-18] MEDS: glyBURIDE 5 MG TABLET PO SCH (08:59)
[2019-03-18] MEDS: DULoxetine 20 MG CAPSULE PO SCH (08:59)
[2019-03-18] MEDS: PANTOPRAZOLE 40 MG TABLET PO SCH (08:59)
[2019-03-18] MEDS: LACTOBACILLUS ACIDOPHILUS/BULGARICUS CAPLET PO SCH (08:59)
[2019-03-18] MEDS: GABAPENTIN 300 MG CAPSULE PO SCH (08:59)
[2019-03-18] MEDS: MAGNESIUM CHLORIDE 64 MG TABLET PO SCH (08:59)
[2019-03-18] MEDS: INSULIN GLARGINE 100 UNIT/ML SUBCUT SCH (09:09)
[2019-03-18 09:52] VITALS: BP 110/70
== END 2019-03-18 13:47 | disposition home or self-care (01) ==
LOC: N.5E 15:52 → N.ED 15:52 → SUATTDRO 18:17 → N.5E 19:05
PROVIDERS: ADMIT Internal Medicine; ATTEND Internal Medicine

== ENCOUNTER 2019-03-29 16:13 | Inpatient (IN) ==
[2019-03-29] MEDS ORDERED: LACTATED RINGERS 1,000 ML IV ONE (17:21)
[2019-03-29 17:50] LABS: Basophils % 0.3 % (0.0-0.8); Eosinophils # 0.2 10*3/uL (0.0-0.87); Eosinophils % 1.2 % (0.00-10.9); Hematocrit 36.6 VOL% (35.7-47.0); Hemoglobin 13.2 GM/DL (12.0-16.0); Immature Granulocytes % 0.7 %; Immature Granulocytes Absolute 0.09 #; Lymphocytes # 2.5 10*3/uL (1.4-4.0); Lymphocytes % 18.3 % (21.3-54.2); Mean Corpuscular HGB Conc 36.1 GM/DL (32-36); Mean Corpuscular Volume 86.5 FL (87-102); Mean Platelet Volume 8.9 FL (9.6-12.0); Monocytes % 4.1 % (1.7-12.7); Neutrophils % 75.4 % (38.7-73.9); Platelet Count 284 T/CUMM (130-400); Red Blood Count 4.23 MC/CUMM (3.8-5.5); Red Cell Distribution Width 12.2 % (9.3-17.3); White Blood Count 13.5 T/CUMM (4-12)
[2019-03-29 18:11] LABS: Blood Urea Nitrogen 18 MG/DL (7-18); Calcium 9.7 MG/DL (8.5-10.1); Glucose 371 MG/DL (74-106); Osmolality,Calculated 284.2 MOS/KG (273-304)
[2019-03-29] MEDS ORDERED: GLUCAGON 1 MG VIAL IM PRN (18:48)
[2019-03-29] MEDS ORDERED: LACTULOSE 20 GM/30 ML UDCUP PO PRN (18:48)
[2019-03-29] MEDS ORDERED: DOCUSATE SODIUM 100 MG CAPSULE PO PRN (18:48)
[2019-03-29] MEDS ORDERED: traZODone 50 MG TABLET PO PRN (18:48)
[2019-03-29] MEDS ORDERED: DEXTROSE 10% 250 ML BAG IV PRN (18:48)
[2019-03-29] MEDS ORDERED: ACETAMINOPHEN 325 MG TABLET PO PRN (18:48)
[2019-03-29] MEDS ORDERED: FUROSEMIDE 20 MG TABLET PO PRN (19:00)
[2019-03-29] MEDS ORDERED: SODIUM CHLORIDE 0.9% 3,000 ML IV ONE (19:21)
[2019-03-29] MEDS: MORPHINE 4 MG/1 ML VIAL IV PRN (21:14)
[2019-03-29] MEDS: LACTOBACILLUS ACIDOPHILUS/BULGARICUS CAPLET PO SCH (21:15)
[2019-03-29] MEDS: traZODone 50 MG TABLET PO SCH (21:15)
[2019-03-29] MEDS: METOCLOPRAMIDE 10 MG TABLET PO SCH (21:15)
[2019-03-29] MEDS: ENOXAPARIN 40 MG/0.4 ML SYRINGE SUBCUT SCH (21:16)
[2019-03-29] MEDS: PIPERACILLIN/TAZOBACTAM 3,375 MG in SODIUM CHLORIDE 0.9% 100 ML IV SCH (21:16)
[2019-03-29] MEDS: MAGNESIUM CHLORIDE 64 MG TABLET PO SCH (21:16)
[2019-03-29] MEDS: PANTOPRAZOLE 40 MG TABLET PO SCH (21:47)
[2019-03-29] MEDS: INSULIN GLARGINE 100 UNIT/ML SUBCUT SCH (21:47)
[2019-03-29] MEDS: INSULIN REGULAR 100 UNIT/ML SUBCUT SCH (21:48)
[2019-03-30] MEDS: SODIUM CHLORIDE 0.45% 1,000 ML IV SCH ×3 (01:16→13:02)
[2019-03-30] MEDS: VANCOMYCIN INJ 1,500 MG in SODIUM CHLORIDE 0.9% 500 ML IV SCH ×3 (01:34→17:40)
[2019-03-30] MEDS: MORPHINE 4 MG/1 ML VIAL IV PRN ×3 (01:35→13:58)
[2019-03-30] MEDS: PIPERACILLIN/TAZOBACTAM 3,375 MG in SODIUM CHLORIDE 0.9% 100 ML IV SCH ×3 (04:59→21:17)
[2019-03-30 05:20] LABS: Basophils % 0.3 % (0.0-0.8); Eosinophils # 0.1 10*3/uL (0.0-0.87); Eosinophils % 1.2 % (0.00-10.9); Hematocrit 32.1 VOL% (35.7-47.0); Hemoglobin 10.7 GM/DL (12.0-16.0); Immature Granulocytes % 0.7 %; Immature Granulocytes Absolute 0.07 #; Lymphocytes # 2.1 10*3/uL (1.4-4.0); Lymphocytes % 19.2 % (21.3-54.2); Mean Corpuscular HGB Conc 33.3 GM/DL (32-36); Mean Corpuscular Volume 91.5 FL (87-102); Mean Platelet Volume 9.1 FL (9.6-12.0); Monocytes % 5.4 % (1.7-12.7); Neutrophils % 73.2 % (38.7-73.9); Platelet Count 213 T/CUMM (130-400); Red Blood Count 3.51 MC/CUMM (3.8-5.5); Red Cell Distribution Width 12.5 % (9.3-17.3); White Blood Count 10.7 T/CUMM (4-12)
[2019-03-30 06:07] LABS: Osmolality,Calculated 288.4 MOS/KG (273-304)
[2019-03-30] MEDS ORDERED: POTASSIUM CHLORIDE 20 MEQ TABLET PO ONE (07:01)
[2019-03-30] MEDS ORDERED: ERGOCALCIFEROL 50,000 UNIT CAPSULE PO SCH (09:00)
[2019-03-30] MEDS: ONDANSETRON 4 MG/2 ML VIAL IV PRN ×2 (09:51→21:13)
[2019-03-30] MEDS: INSULIN REGULAR 100 UNIT/ML SUBCUT SCH ×4 (09:59→21:09)
[2019-03-30] MEDS: LACTOBACILLUS ACIDOPHILUS/BULGARICUS CAPLET PO SCH ×3 (10:00→21:20)
[2019-03-30] MEDS: glyBURIDE 5 MG TABLET PO SCH ×2 (10:00→17:39)
[2019-03-30] MEDS: METOCLOPRAMIDE 10 MG TABLET PO SCH ×4 (10:00→21:04)
[2019-03-30] MEDS: INSULIN LISPRO 100 UNIT/ML SUBCUT SCH ×4 (10:00→17:45)
[2019-03-30] MEDS: GEMFIBROZIL 600 MG TABLET PO SCH ×2 (10:00→17:39)
[2019-03-30] MEDS: INSULIN GLARGINE 100 UNIT/ML SUBCUT SCH ×3 (10:01→21:10)
[2019-03-30] MEDS: MAGNESIUM CHLORIDE 64 MG TABLET PO SCH ×3 (10:01→21:04)
[2019-03-30] MEDS: PANTOPRAZOLE 40 MG TABLET PO SCH ×3 (10:01→21:04)
[2019-03-30] MEDS: DULoxetine 20 MG CAPSULE PO SCH ×2 (10:01→13:39)
[2019-03-30] MEDS ORDERED: LIDOCAINE 1%/EPI INJ 20 ML VIAL ONE (10:55)
[2019-03-30] MEDS ORDERED: BUPIVACAINE MPF 0.25% /EPI 30 ML VIAL ONE (10:55)
[2019-03-30] MEDS ORDERED: SCOPOLAMINE 1.5 MG PATCH TRANSDERM ONE (11:08)
[2019-03-30] MEDS ORDERED: PROPOFOL 200 MG/20 ML VIAL IV ONE (11:59)
[2019-03-30] MEDS ORDERED: fentaNYL 100 MCG/2 ML VIAL ONE (11:59)
[2019-03-30] MEDS ORDERED: MIDAZOLAM 2 MG/2 ML VIAL ONE (11:59)
[2019-03-30] MEDS ORDERED: DEXTROSE 50% 25 GM/50 ML VIAL IV PRN (12:48)
[2019-03-30] MEDS: HYDROmorphone 2 MG/1 ML VIAL IV PRN ×2 (15:58→21:13)
[2019-03-30] MEDS ORDERED: INSULIN LISPRO 100 UNIT/ML SUBCUT SCH (17:10)
[2019-03-30] MEDS: ENOXAPARIN 40 MG/0.4 ML SYRINGE SUBCUT SCH (21:07)
[2019-03-30] MEDS: traZODone 50 MG TABLET PO SCH (21:15)
[2019-03-31] MEDS: VANCOMYCIN INJ 1,500 MG in SODIUM CHLORIDE 0.9% 500 ML IV SCH ×2 (00:55→09:39)
[2019-03-31 00:57] LABS: Basophils % 0.3 % (0.0-0.8); Eosinophils # 0.2 10*3/uL (0.0-0.87); Hematocrit 32.8 VOL% (35.7-47.0); Immature Granulocytes % 0.8 %; Immature Granulocytes Absolute 0.06 #; Lymphocytes # 1.4 10*3/uL (1.4-4.0); Lymphocytes % 18.3 % (21.3-54.2); Mean Corpuscular HGB Conc 33.5 GM/DL (32-36); Mean Corpuscular Volume 91.9 FL (87-102); Monocytes % 6.2 % (1.7-12.7); Neutrophils % 72.4 % (38.7-73.9); Platelet Count 199 T/CUMM (130-400); Red Blood Count 3.57 MC/CUMM (3.8-5.5); Red Cell Distribution Width 12.4 % (9.3-17.3); White Blood Count 7.9 T/CUMM (4-12)
[2019-03-31] MEDS: SODIUM CHLORIDE 0.45% 1,000 ML IV SCH (01:45)
[2019-03-31 01:48] LABS: Osmolality,Calculated 276.5 MOS/KG (273-304)
[2019-03-31] MEDS: POTASSIUM CHLORIDE 20 MEQ TABLET PO PRN ×3 (01:59→06:39)
[2019-03-31] MEDS: HYDROmorphone 2 MG/1 ML VIAL IV PRN ×3 (03:57→13:50)
[2019-03-31] MEDS: PIPERACILLIN/TAZOBACTAM 3,375 MG in SODIUM CHLORIDE 0.9% 100 ML IV SCH ×2 (04:14→13:52)
[2019-03-31] MEDS: INSULIN LISPRO 100 UNIT/ML SUBCUT SCH ×2 (08:12→13:51)
[2019-03-31] MEDS: INSULIN REGULAR 100 UNIT/ML SUBCUT SCH ×2 (08:12→13:30)
[2019-03-31] MEDS: INSULIN GLARGINE 100 UNIT/ML SUBCUT SCH (08:55)
[2019-03-31] MEDS: GEMFIBROZIL 600 MG TABLET PO SCH (08:56)
[2019-03-31] MEDS: LACTOBACILLUS ACIDOPHILUS/BULGARICUS CAPLET PO SCH (08:57)
[2019-03-31] MEDS: MAGNESIUM CHLORIDE 64 MG TABLET PO SCH (08:57)
[2019-03-31] MEDS: PANTOPRAZOLE 40 MG TABLET PO SCH (08:59)
[2019-03-31] MEDS: glyBURIDE 5 MG TABLET PO SCH (08:59)
[2019-03-31] MEDS: METOCLOPRAMIDE 10 MG TABLET PO SCH ×2 (08:59→13:51)
[2019-03-31] MEDS: DULoxetine 20 MG CAPSULE PO SCH (09:00)
[2019-03-31 11:09] VITALS: BP 105/73
== END 2019-03-31 16:25 | disposition home or self-care (01) | DRG 710 ==
LOC: N.ED 16:13 → N.EDINP 18:38 → N.5E 18:56
PROVIDERS: ADMIT Internal Medicine; ATTEND Internal Medicine

== ENCOUNTER 2019-04-12 05:54 | Inpatient (IN) ==
[2019-04-11 14:47] LABS: Basophils # 0.1 10*3/uL (0.0-0.2); Basophils % 0.4 % (0.0-0.8); Eosinophils # 0.2 10*3/uL (0.0-0.87); Eosinophils % 1.3 % (0.00-10.9); Hematocrit 38.3 VOL% (35.7-47.0); Immature Granulocytes % 1.2 %; Immature Granulocytes Absolute 0.14 #; Lymphocytes # 2.5 10*3/uL (1.4-4.0); Lymphocytes % 21.9 % (21.3-54.2); Mean Corpuscular HGB Conc 33.9 GM/DL (32-36); Mean Corpuscular Volume 88.9 FL (87-102); Mean Platelet Volume 9.1 FL (9.6-12.0); Monocytes % 4.7 % (1.7-12.7); Neutrophils % 70.5 % (38.7-73.9); Platelet Count 235 T/CUMM (130-400); Red Blood Count 4.31 MC/CUMM (3.8-5.5); Red Cell Distribution Width 12.3 % (9.3-17.3); White Blood Count 11.5 T/CUMM (4-12)
[2019-04-11 15:07] LABS: Alanine Aminotransferase 25 U/L (13-56); Albumin 3.4 G/DL (3.4-5.0); Alkaline Phosphatase 91 U/L (45-117); Aspartate Amino Transferase 13 U/L (0-37); Bilirubin,Total < 0.39 MG/DL (0.2-1.0); Blood Urea Nitrogen 13 MG/DL (7-18); Calcium 9.1 MG/DL (8.5-10.1); Osmolality,Calculated 295.9 MOS/KG (273-304)
[2019-04-11 15:12] LABS: Glucose 786 MG/DL (74-106)
[2019-04-11 15:48] LABS: Platelet Estimate Normal; Polychromasia Few
[2019-04-12] MEDS ORDERED: LEVOFLOXACIN INJ 500 MG in PREMIX 1 EACH IV ONE (06:30)
[2019-04-12] MEDS ORDERED: LACTATED RINGERS 1,000 ML IV SCH (07:30)
[2019-04-12] MEDS ORDERED: LEVOFLOXACIN INJ 0 ML IV ONE (07:51)
[2019-04-12 08:08] LABS: Calcium 9.3 MG/DL (8.5-10.1); Osmolality,Calculated 273.8 MOS/KG (273-304)
[2019-04-12] MEDS ORDERED: DEXTROSE 50% 25 GM/50 ML VIAL IV PRN (09:02)
[2019-04-12] MEDS ORDERED: GLUCAGON 1 MG VIAL IM PRN (09:02)
[2019-04-12] MEDS ORDERED: ALBUTEROL/IPRATROPIUM 3 ML NEB RESP TX PRN (09:12)
[2019-04-12] MEDS ORDERED: ACETAMINOPHEN 325 MG TABLET PO PRN (09:12)
[2019-04-12] MEDS ORDERED: BISACODYL 5 MG TABLET PO PRN (09:12)
[2019-04-12] MEDS ORDERED: KETOROLAC 10 MG TABLET PO PRN (09:12)
[2019-04-12] MEDS ORDERED: ONDANSETRON 4 MG/2 ML VIAL IV PRN (09:12)
[2019-04-12] MEDS ORDERED: FUROSEMIDE 20 MG TABLET PO PRN (09:20)
[2019-04-12] MEDS ORDERED: POTASSIUM CHLORIDE 20 MEQ TABLET PO ONE ×2 (09:23→10:37)
[2019-04-12] MEDS: INSULIN LISPRO 100 UNIT/ML SUBCUT SCH ×4 (10:29→21:50)
[2019-04-12] MEDS ORDERED: VANCOMYCIN INJ 1,500 MG in SODIUM CHLORIDE 0.9% 500 ML IV SCH (11:00)
[2019-04-12] MEDS ORDERED: POTASSIUM CHLORIDE 10 MEQ TABLET PO PRN (12:00)
[2019-04-12] MEDS: traMADol 50 MG TABLET PO PRN (14:40)
[2019-04-12] MEDS: GABAPENTIN 300 MG CAPSULE PO SCH ×2 (15:05→20:06)
[2019-04-12] MEDS: HYDROmorphone 2 MG/1 ML VIAL IV PRN ×2 (16:20→21:38)
[2019-04-12] MEDS: CEFTAROLINE 600 MG in SODIUM CHLORIDE 0.9% 100 ML IV SCH (16:25)
[2019-04-12] MEDS: PANTOPRAZOLE 40 MG TABLET PO SCH (20:06)
[2019-04-12] MEDS: LACTOBACILLUS ACIDOPHILUS/BULGARICUS CAPLET PO SCH (20:06)
[2019-04-12] MEDS: traZODone 50 MG TABLET PO SCH (20:06)
[2019-04-13] MEDS: INSULIN LISPRO 100 UNIT/ML SUBCUT SCH ×9 (02:04→21:06)
[2019-04-13 05:23] LABS: Basophils % 0.4 % (0.0-0.8); Eosinophils # 0.1 10*3/uL (0.0-0.87); Eosinophils % 1.6 % (0.00-10.9); Hematocrit 35.1 VOL% (35.7-47.0); Hemoglobin 11.9 GM/DL (12.0-16.0); Immature Granulocytes % 1.3 %; Immature Granulocytes Absolute 0.09 #; Lymphocytes # 2.2 10*3/uL (1.4-4.0); Mean Corpuscular HGB Conc 33.9 GM/DL (32-36); Mean Corpuscular Volume 90.2 FL (87-102); Monocytes % 5.3 % (1.7-12.7); Neutrophils % 59.4 % (38.7-73.9); Platelet Count 172 T/CUMM (130-400); Red Blood Count 3.89 MC/CUMM (3.8-5.5); Red Cell Distribution Width 12.5 % (9.3-17.3); White Blood Count 6.9 T/CUMM (4-12)
[2019-04-13 05:51] LABS: Calcium 8.4 MG/DL (8.5-10.1); Osmolality,Calculated 286.2 MOS/KG (273-304)
[2019-04-13] MEDS ORDERED: LIDOCAINE 1% 20 ML VIAL ONE (07:02)
[2019-04-13] MEDS ORDERED: METOCLOPRAMIDE 10 MG/2 ML VIAL ONE (07:15)
[2019-04-13] MEDS ORDERED: PANTOPRAZOLE 40 MG TABLET PO SCH (09:00)
[2019-04-13] MEDS ORDERED: ERGOCALCIFEROL 50,000 UNIT CAPSULE PO SCH (09:00)
[2019-04-13] MEDS: CEFTAROLINE 600 MG in SODIUM CHLORIDE 0.9% 100 ML IV SCH ×2 (09:58→21:08)
[2019-04-13] MEDS: LACTOBACILLUS ACIDOPHILUS/BULGARICUS CAPLET PO SCH ×2 (09:59→21:07)
[2019-04-13] MEDS: DULoxetine 30 MG CAPSULE PO SCH (09:59)
[2019-04-13] MEDS: MAGNESIUM CHLORIDE 64 MG TABLET PO SCH (09:59)
[2019-04-13] MEDS: GABAPENTIN 300 MG CAPSULE PO SCH ×3 (09:59→21:07)
[2019-04-13] MEDS: PANTOPRAZOLE 40 MG TABLET PO SCH ×2 (10:00→21:07)
[2019-04-13] MEDS ORDERED: KETAMINE 500 MG/10 ML VIAL ONE (11:25)
[2019-04-13] MEDS: traMADol 50 MG TABLET PO PRN (12:18)
[2019-04-13] MEDS ORDERED: MIDAZOLAM 2 MG/2 ML VIAL ONE (13:27)
[2019-04-13] MEDS ORDERED: ONDANSETRON 4 MG/2 ML VIAL ONE (13:27)
[2019-04-13] MEDS ORDERED: SODIUM CHLORIDE 0.9% 100 ML IV ONE (13:27)
[2019-04-13] MEDS: HYDROmorphone 2 MG/1 ML VIAL IV PRN ×3 (14:33→22:23)
[2019-04-13] MEDS: INSULIN GLARGINE 100 UNIT/ML SUBCUT SCH (21:06)
[2019-04-13] MEDS: traZODone 50 MG TABLET PO SCH (21:07)
[2019-04-14] MEDS: HYDROmorphone 2 MG/1 ML VIAL IV PRN ×3 (02:40→11:13)
[2019-04-14] MEDS: INSULIN LISPRO 100 UNIT/ML SUBCUT SCH ×5 (02:41→11:13)
[2019-04-14] MEDS: CEFTAROLINE 600 MG in SODIUM CHLORIDE 0.9% 100 ML IV SCH (08:53)
[2019-04-14] MEDS: INSULIN GLARGINE 100 UNIT/ML SUBCUT SCH (08:55)
[2019-04-14] MEDS: DULoxetine 30 MG CAPSULE PO SCH (08:56)
[2019-04-14] MEDS: LACTOBACILLUS ACIDOPHILUS/BULGARICUS CAPLET PO SCH (08:57)
[2019-04-14] MEDS: GABAPENTIN 300 MG CAPSULE PO SCH (08:57)
[2019-04-14] MEDS: MAGNESIUM CHLORIDE 64 MG TABLET PO SCH (08:57)
[2019-04-14] MEDS: PANTOPRAZOLE 40 MG TABLET PO SCH (08:57)
[2019-04-14 11:48] VITALS: BP 111/71
== END 2019-04-14 13:10 | disposition home or self-care (01) | DRG 364 ==
LOC: N.OR 05:54 → N.SDSINP 05:55 → N.2E 11:50
PROVIDERS: ADMIT Surgery; ATTEND Surgery

== ENCOUNTER 2019-05-04 18:31 | Inpatient (IN) ==
[2019-05-04] MEDS ORDERED: SODIUM CHLORIDE 0.9% 2,000 ML IV STA (19:13)
[2019-05-04] MEDS ORDERED: ONDANSETRON 4 MG/2 ML VIAL IV ONE (19:13)
[2019-05-04] MEDS ORDERED: MORPHINE 4 MG/1 ML VIAL IV ONE (19:13)
[2019-05-04 19:54] LABS: Allen Test Positive; Pt O2 Delivery Device Other
[2019-05-04 20:10] LABS: ABG Base Excess 2.1 MMOL/L (-2.5-2.5); ABG HCO3 26.3 MMOL/L (20-26); ABG Oxygen Saturation 99.9 % (95-100); ABG PCO2 25.9 MM HG (35-48); ABG TCO2 20.4 MMOL/L (23-27)
[2019-05-04 20:12] LABS: Basophils % 0.3 % (0.0-0.8); Eosinophils # 0.1 10*3/uL (0.0-0.87); Eosinophils % 0.6 % (0.00-10.9); Hemoglobin 12.4 GM/DL (12.0-16.0); Immature Granulocytes % 0.7 %; Immature Granulocytes Absolute 0.08 #; Lymphocytes # 1.6 10*3/uL (1.4-4.0); Lymphocytes % 13.9 % (21.3-54.2); Mean Corpuscular HGB Conc 33.5 GM/DL (32-36); Mean Corpuscular Volume 90.5 FL (87-102); Mean Platelet Volume 8.8 FL (9.6-12.0); Monocytes % 5.5 % (1.7-12.7); Platelet Count 235 T/CUMM (130-400); Red Blood Count 4.09 MC/CUMM (3.8-5.5); Red Cell Distribution Width 12.6 % (9.3-17.3); White Blood Count 11.7 T/CUMM (4-12)
[2019-05-04 20:19] LABS: INR 0.9
[2019-05-04] MEDS ORDERED: HYDROmorphone 2 MG/1 ML VIAL IV STA (20:27)
[2019-05-04 20:35] LABS: Alanine Aminotransferase 18 U/L (13-56); Albumin 2.7 G/DL (3.4-5.0); Alkaline Phosphatase 115 U/L (45-117); Aspartate Amino Transferase 13 U/L (0-37); Blood Urea Nitrogen 9 MG/DL (7-18); Calcium 8.7 MG/DL (8.5-10.1); Glucose 431 MG/DL (74-106); Osmolality,Calculated 286.1 MOS/KG (273-304); Troponin I < 0.015 NG/ML (0.00-0.045)
[2019-05-04] MEDS ORDERED: LEVOFLOXACIN INJ 750 MG in PREMIX 1 EACH IV STA (20:51)
[2019-05-04] MEDS ORDERED: VANCOMYCIN INJ 1,500 MG in SODIUM CHLORIDE 0.9% 250 ML IV ONE (20:51)
[2019-05-04] MEDS ORDERED: INSULIN REGULAR 100 UNIT/ML IV ONE (20:52)
[2019-05-04] MEDS ORDERED: VANCOMYCIN INJ 1,500 MG in SODIUM CHLORIDE 0.9% 500 ML IV ONE (21:30)
[2019-05-04] MEDS ORDERED: NICOTINE 21 MG/24 HR PATCH TRANSDERM PRN (21:50)
[2019-05-04] MEDS ORDERED: DEXTROSE 50% 25 GM/50 ML VIAL IV PRN (21:50)
[2019-05-04] MEDS ORDERED: diphenhydrAMINE CAP 25 MG CAPSULE PO PRN (21:50)
[2019-05-04] MEDS ORDERED: BISACODYL 5 MG TABLET PO PRN (21:50)
[2019-05-04] MEDS ORDERED: GLUCAGON 1 MG VIAL IM PRN (21:50)
[2019-05-04 22:39] LABS: Apearance,Urine Slightly Hazy (Clear); Bacteria,Urine Few /HPF (Few); Bilirubin,Urine Negative (Negative); Blood, Urine Small mg/dL (Negative); Glucose,Urine (UA) >=500 mg/dL (Negative); Ketones,Urine 80 mg/dL (Negative); Mucus,Urine Occasional /LPF (Occasional); Nitrite,Urine Negative (Negative); Protein,Urine Negative; RBC,Urine 5 /HPF (0-4); Squamous Epithelial Cell,Urine Occasional /HPF (0-10); Urine Color Yellow (Yellow); Urine Specific Gravity 1.033 (1.001-1.035); Urine Urobilinogen < 2.0 EU/DL (0.2-1.0); WBC,Urine 7 /HPF (0-6)
[2019-05-04] MEDS: INSULIN REGULAR 100 UNIT/ML SUBCUT SCH (23:35)
[2019-05-04] MEDS: SODIUM CHLORIDE 0.9% 1,000 ML IV SCH (23:36)
[2019-05-05] MEDS: MORPHINE 4 MG/1 ML VIAL IV PRN ×2 (00:38→04:41)
[2019-05-05 02:45] LABS: Basophils % 0.3 % (0.0-0.8); Eosinophils # 0.1 10*3/uL (0.0-0.87); Eosinophils % 1.2 % (0.00-10.9); Hematocrit 33.1 VOL% (35.7-47.0); Hemoglobin 11.1 GM/DL (12.0-16.0); Immature Granulocytes % 0.7 %; Immature Granulocytes Absolute 0.08 #; Lymphocytes # 2.1 10*3/uL (1.4-4.0); Lymphocytes % 19.6 % (21.3-54.2); Mean Corpuscular HGB Conc 33.5 GM/DL (32-36); Mean Corpuscular Volume 90.4 FL (87-102); Mean Platelet Volume 8.4 FL (9.6-12.0); Monocytes % 6.6 % (1.7-12.7); Neutrophils % 71.6 % (38.7-73.9); Platelet Count 209 T/CUMM (130-400); Red Blood Count 3.66 MC/CUMM (3.8-5.5); Red Cell Distribution Width 12.7 % (9.3-17.3); White Blood Count 10.9 T/CUMM (4-12)
[2019-05-05 03:01] LABS: Alanine Aminotransferase 14 U/L (13-56); Albumin 2.2 G/DL (3.4-5.0); Alkaline Phosphatase 94 U/L (45-117); Aspartate Amino Transferase 11 U/L (0-37); Bilirubin,Total < 0.39 MG/DL (0.2-1.0); Blood Urea Nitrogen 7 MG/DL (7-18); Calcium 7.6 MG/DL (8.5-10.1); Glucose 239 MG/DL (74-106); Osmolality,Calculated 284.4 MOS/KG (273-304); Total Protein 6.6 G/DL (6.4-8.3)
[2019-05-05] MEDS: INSULIN REGULAR 100 UNIT/ML SUBCUT SCH ×3 (06:08→18:18)
[2019-05-05] MEDS ORDERED: FUROSEMIDE 20 MG TABLET PO PRN (07:25)
[2019-05-05] MEDS ORDERED: LINDANE 1% TOP ONE ×2 (08:43→20:36)
[2019-05-05] MEDS: VANCOMYCIN INJ 1,500 MG in SODIUM CHLORIDE 0.9% 500 ML IV SCH ×2 (08:55→21:50)
[2019-05-05] MEDS: SODIUM CHLORIDE 0.9% 1,000 ML IV SCH (08:56)
[2019-05-05] MEDS: GABAPENTIN 300 MG CAPSULE PO SCH ×3 (08:57→21:37)
[2019-05-05] MEDS: DULoxetine 30 MG CAPSULE PO SCH (08:57)
[2019-05-05] MEDS: glyBURIDE 5 MG TABLET PO SCH ×2 (08:57→16:36)
[2019-05-05] MEDS: MAGNESIUM CHLORIDE 64 MG TABLET PO SCH (08:57)
[2019-05-05] MEDS: LACTOBACILLUS ACIDOPHILUS/BULGARICUS CAPLET PO SCH ×2 (08:57→21:36)
[2019-05-05] MEDS: INSULIN GLARGINE 100 UNIT/ML SUBCUT SCH ×2 (08:59→21:52)
[2019-05-05] MEDS ORDERED: POTASSIUM CHLORIDE 20 MEQ TABLET PO ONE (09:00)
[2019-05-05] MEDS: HYDROmorphone 2 MG/1 ML VIAL IV PRN ×2 (09:00→18:19)
[2019-05-05] MEDS ORDERED: LIDOCAINE 1% 20 ML VIAL ONE (12:24)
[2019-05-05] MEDS ORDERED: PROMETHAZINE INJ 25 MG in SODIUM CHLORIDE 0.9% 50 ML IV PRN (12:28)
[2019-05-05] MEDS ORDERED: ONDANSETRON 4 MG/2 ML VIAL IV PRN (12:28)
[2019-05-05] MEDS ORDERED: HYDROmorphone 2 MG/1 ML VIAL IV PRN (12:28)
[2019-05-05] MEDS ORDERED: diphenhydrAMINE 50 MG/1 ML VIAL IV PRN (12:28)
[2019-05-05] MEDS ORDERED: MIDAZOLAM 2 MG/2 ML VIAL ONE (14:19)
[2019-05-05] MEDS ORDERED: PROPOFOL 200 MG/20 ML VIAL IV ONE (14:19)
[2019-05-05] MEDS ORDERED: fentaNYL 100 MCG/2 ML VIAL ONE (14:19)
[2019-05-05] MEDS ORDERED: SODIUM CHLORIDE 0.9% 250 ML IV ONE (14:20)
[2019-05-05] MEDS ORDERED: PHENYLEPHRINE 1 MG/10 ML SYRINGE IV ONE (14:20)
[2019-05-05] MEDS ORDERED: KETAMINE 500 MG/10 ML VIAL ONE (14:20)
[2019-05-05] MEDS ORDERED: LEVOFLOXACIN INJ 750 MG in PREMIX 1 EACH IV SCH (21:00)
[2019-05-05] MEDS: traZODone 50 MG TABLET PO SCH (21:36)
[2019-05-05] MEDS: ONDANSETRON 4 MG/2 ML VIAL IV PRN (22:00)
[2019-05-06] MEDS: INSULIN REGULAR 100 UNIT/ML SUBCUT SCH ×4 (00:51→18:47)
[2019-05-06] MEDS ORDERED: PERMETHRIN 5% CREAM 60 GM TUBE TOP ONE (03:12)
[2019-05-06] MEDS: SODIUM CHLORIDE 0.9% 1,000 ML IV SCH ×3 (04:17→15:23)
[2019-05-06] MEDS: ONDANSETRON 4 MG/2 ML VIAL IV PRN ×2 (04:35→23:36)
[2019-05-06] MEDS: HYDROmorphone 2 MG/1 ML VIAL IV PRN ×3 (04:35→23:36)
[2019-05-06 07:55] LABS: Basophils % 0.1 % (0.0-0.8); Eosinophils # 0.1 10*3/uL (0.0-0.87); Eosinophils % 1.3 % (0.00-10.9); Hematocrit 31.9 VOL% (35.7-47.0); Hemoglobin 10.3 GM/DL (12.0-16.0); Immature Granulocytes % 0.5 %; Immature Granulocytes Absolute 0.04 #; Lymphocytes # 1.6 10*3/uL (1.4-4.0); Lymphocytes % 18.8 % (21.3-54.2); Mean Corpuscular HGB Conc 32.3 GM/DL (32-36); Mean Corpuscular Volume 93.3 FL (87-102); Mean Platelet Volume 8.7 FL (9.6-12.0); Monocytes % 6.8 % (1.7-12.7); Neutrophils % 72.5 % (38.7-73.9); Platelet Count 204 T/CUMM (130-400); Red Blood Count 3.42 MC/CUMM (3.8-5.5); Red Cell Distribution Width 12.7 % (9.3-17.3); White Blood Count 8.4 T/CUMM (4-12)
[2019-05-06 08:25] LABS: Calcium 8.3 MG/DL (8.5-10.1); Osmolality,Calculated 285.3 MOS/KG (273-304)
[2019-05-06] MEDS: LACTOBACILLUS ACIDOPHILUS/BULGARICUS CAPLET PO SCH ×2 (08:38→20:41)
[2019-05-06] MEDS: GABAPENTIN 300 MG CAPSULE PO SCH ×3 (08:39→20:41)
[2019-05-06] MEDS: MAGNESIUM CHLORIDE 64 MG TABLET PO SCH (08:39)
[2019-05-06] MEDS: DULoxetine 30 MG CAPSULE PO SCH (08:39)
[2019-05-06] MEDS: glyBURIDE 5 MG TABLET PO SCH ×2 (08:39→17:13)
[2019-05-06] MEDS: INSULIN GLARGINE 100 UNIT/ML SUBCUT SCH ×2 (08:41→21:50)
[2019-05-06] MEDS: VANCOMYCIN INJ 1,500 MG in SODIUM CHLORIDE 0.9% 500 ML IV SCH ×2 (08:45→20:40)
[2019-05-06] MEDS: MEPERIDINE 25 MG/1 ML VIAL IV PRN ×2 (08:49→13:44)
[2019-05-06] MEDS: MEROPENEM 500 MG in SODIUM CHLORIDE 0.9% 100 ML IV SCH ×3 (12:29→23:35)
[2019-05-06] MEDS: traZODone 50 MG TABLET PO SCH (20:41)
[2019-05-07] MEDS: INSULIN REGULAR 100 UNIT/ML SUBCUT SCH ×4 (00:04→18:40)
[2019-05-07] MEDS: SODIUM CHLORIDE 0.9% 1,000 ML IV SCH (00:10)
[2019-05-07] MEDS: ONDANSETRON 4 MG/2 ML VIAL IV PRN (04:39)
[2019-05-07] MEDS: HYDROmorphone 2 MG/1 ML VIAL IV PRN ×5 (04:39→23:42)
[2019-05-07] MEDS: MEROPENEM 500 MG in SODIUM CHLORIDE 0.9% 100 ML IV SCH ×4 (04:44→23:43)
[2019-05-07 04:51] LABS: Basophils % 0.3 % (0.0-0.8); Eosinophils # 0.1 10*3/uL (0.0-0.87); Eosinophils % 1.3 % (0.00-10.9); Hematocrit 32.5 VOL% (35.7-47.0); Hemoglobin 10.2 GM/DL (12.0-16.0); Immature Granulocytes % 0.7 %; Immature Granulocytes Absolute 0.05 #; Lymphocytes # 1.6 10*3/uL (1.4-4.0); Lymphocytes % 21.6 % (21.3-54.2); Mean Corpuscular HGB Conc 31.4 GM/DL (32-36); Mean Corpuscular Volume 94.2 FL (87-102); Mean Platelet Volume 8.4 FL (9.6-12.0); Monocytes % 6.7 % (1.7-12.7); Neutrophils % 69.4 % (38.7-73.9); Platelet Count 214 T/CUMM (130-400); Red Blood Count 3.45 MC/CUMM (3.8-5.5); Red Cell Distribution Width 12.5 % (9.3-17.3); White Blood Count 7.6 T/CUMM (4-12)
[2019-05-07 05:13] LABS: Calcium 8.6 MG/DL (8.5-10.1); Osmolality,Calculated 280.3 MOS/KG (273-304)
[2019-05-07] MEDS: VANCOMYCIN INJ 1,500 MG in SODIUM CHLORIDE 0.9% 500 ML IV SCH ×3 (05:42→21:36)
[2019-05-07] MEDS: GABAPENTIN 300 MG CAPSULE PO SCH ×3 (08:46→21:38)
[2019-05-07] MEDS: DULoxetine 30 MG CAPSULE PO SCH (08:46)
[2019-05-07] MEDS: LACTOBACILLUS ACIDOPHILUS/BULGARICUS CAPLET PO SCH ×2 (08:46→21:38)
[2019-05-07] MEDS: MAGNESIUM CHLORIDE 64 MG TABLET PO SCH (08:46)
[2019-05-07] MEDS: glyBURIDE 5 MG TABLET PO SCH ×2 (08:46→16:51)
[2019-05-07] MEDS: INSULIN GLARGINE 100 UNIT/ML SUBCUT SCH ×2 (08:47→21:39)
[2019-05-07] MEDS: SODIUM HYPOCHLORITE 0.25% IRRIG 473 ML BOTTLE TOP SCH (11:16)
[2019-05-07] MEDS ORDERED: LIDOCAINE 1% 20 ML VIAL ONE (12:55)
[2019-05-07] MEDS ORDERED: PROPOFOL 200 MG/20 ML VIAL IV ONE (13:49)
[2019-05-07] MEDS ORDERED: fentaNYL 100 MCG/2 ML VIAL ONE (13:50)
[2019-05-07] MEDS ORDERED: ONDANSETRON 4 MG/2 ML VIAL ONE (13:50)
[2019-05-07] MEDS ORDERED: KETAMINE 500 MG/10 ML VIAL ONE (13:50)
[2019-05-07] MEDS ORDERED: MIDAZOLAM 2 MG/2 ML VIAL ONE (13:50)
[2019-05-07] MEDS: FLUCONAZOLE 200 MG TABLET PO SCH (15:34)
[2019-05-07] MEDS: traZODone 50 MG TABLET PO SCH (21:38)
[2019-05-08] MEDS: INSULIN REGULAR 100 UNIT/ML SUBCUT SCH ×4 (01:37→18:07)
[2019-05-08] MEDS: MEROPENEM 500 MG in SODIUM CHLORIDE 0.9% 100 ML IV SCH ×3 (05:20→21:49)
[2019-05-08] MEDS: SODIUM CHLORIDE 0.9% 1,000 ML IV SCH ×4 (05:22→16:00)
[2019-05-08 06:19] LABS: Basophils % 0.4 % (0.0-0.8); Eosinophils # 0.1 10*3/uL (0.0-0.87); Eosinophils % 0.9 % (0.00-10.9); Hematocrit 32.2 VOL% (35.7-47.0); Hemoglobin 10.6 GM/DL (12.0-16.0); Immature Granulocytes % 0.7 %; Immature Granulocytes Absolute 0.04 #; Lymphocytes # 0.8 10*3/uL (1.4-4.0); Lymphocytes % 14.4 % (21.3-54.2); Mean Corpuscular HGB Conc 32.9 GM/DL (32-36); Mean Platelet Volume 8.5 FL (9.6-12.0); Monocytes % 6.7 % (1.7-12.7); Neutrophils % 76.9 % (38.7-73.9); Platelet Count 202 T/CUMM (130-400); Red Cell Distribution Width 12.4 % (9.3-17.3); White Blood Count 5.4 T/CUMM (4-12)
[2019-05-08] MEDS: VANCOMYCIN INJ 1,500 MG in SODIUM CHLORIDE 0.9% 500 ML IV SCH ×2 (06:19→16:43)
[2019-05-08 07:43] LABS: Calcium 8.3 MG/DL (8.5-10.1); Osmolality,Calculated 274.5 MOS/KG (273-304)
[2019-05-08] MEDS: HYDROmorphone 2 MG/1 ML VIAL IV PRN ×3 (08:16→19:26)
[2019-05-08] MEDS: glyBURIDE 5 MG TABLET PO SCH ×2 (08:26→18:07)
[2019-05-08] MEDS: DULoxetine 30 MG CAPSULE PO SCH (08:26)
[2019-05-08] MEDS: FLUCONAZOLE 200 MG TABLET PO SCH (08:26)
[2019-05-08] MEDS: LACTOBACILLUS ACIDOPHILUS/BULGARICUS CAPLET PO SCH ×2 (08:26→21:47)
[2019-05-08] MEDS: GABAPENTIN 300 MG CAPSULE PO SCH ×3 (08:27→21:47)
[2019-05-08] MEDS: INSULIN GLARGINE 100 UNIT/ML SUBCUT SCH ×2 (08:27→21:55)
[2019-05-08] MEDS: MAGNESIUM CHLORIDE 64 MG TABLET PO SCH (08:27)
[2019-05-08] MEDS: POTASSIUM CHLORIDE 20 MEQ TABLET PO SCH (13:22)
[2019-05-08] MEDS: SODIUM HYPOCHLORITE 0.25% IRRIG 473 ML BOTTLE TOP SCH (13:24)
[2019-05-08] MEDS: traZODone 50 MG TABLET PO SCH (21:48)
[2019-05-09] MEDS: VANCOMYCIN INJ 1,500 MG in SODIUM CHLORIDE 0.9% 500 ML IV SCH ×3 (01:37→17:40)
[2019-05-09] MEDS: INSULIN REGULAR 100 UNIT/ML SUBCUT SCH ×4 (01:37→18:20)
[2019-05-09] MEDS: HYDROmorphone 2 MG/1 ML VIAL IV PRN ×4 (03:30→22:09)
[2019-05-09] MEDS: ONDANSETRON 4 MG/2 ML VIAL IV PRN ×2 (06:18→21:49)
[2019-05-09 06:21] LABS: Basophils % 0.3 % (0.0-0.8); Eosinophils # 0.1 10*3/uL (0.0-0.87); Eosinophils % 1.4 % (0.00-10.9); Hematocrit 30.8 VOL% (35.7-47.0); Hemoglobin 9.9 GM/DL (12.0-16.0); Immature Granulocytes % 1.1 %; Immature Granulocytes Absolute 0.04 #; Lymphocytes # 1.1 10*3/uL (1.4-4.0); Lymphocytes % 31.1 % (21.3-54.2); Mean Corpuscular HGB Conc 32.1 GM/DL (32-36); Mean Corpuscular Volume 93.1 FL (87-102); Mean Platelet Volume 8.4 FL (9.6-12.0); Monocytes % 8.7 % (1.7-12.7); Neutrophils % 57.4 % (38.7-73.9); Platelet Count 227 T/CUMM (130-400); Red Blood Count 3.31 MC/CUMM (3.8-5.5); Red Cell Distribution Width 12.3 % (9.3-17.3); White Blood Count 3.7 T/CUMM (4-12)
[2019-05-09] MEDS: MEROPENEM 500 MG in SODIUM CHLORIDE 0.9% 100 ML IV SCH (06:23)
[2019-05-09 06:37] LABS: Calcium 8.8 MG/DL (8.5-10.1)
[2019-05-09] MEDS: glyBURIDE 5 MG TABLET PO SCH ×2 (08:26→18:24)
[2019-05-09] MEDS: LACTOBACILLUS ACIDOPHILUS/BULGARICUS CAPLET PO SCH ×2 (09:00→21:45)
[2019-05-09] MEDS: GABAPENTIN 300 MG CAPSULE PO SCH ×3 (09:00→21:46)
[2019-05-09] MEDS: INSULIN GLARGINE 100 UNIT/ML SUBCUT SCH ×2 (09:00→22:02)
[2019-05-09] MEDS: SODIUM HYPOCHLORITE 0.25% IRRIG 473 ML BOTTLE TOP SCH (09:00)
[2019-05-09] MEDS: SODIUM CHLORIDE 0.9% 1,000 ML IV SCH ×2 (10:00→12:00)
[2019-05-09] MEDS ORDERED: LIDOCAINE 1% 20 ML VIAL ONE (12:06)
[2019-05-09] MEDS ORDERED: PROPOFOL 200 MG/20 ML VIAL IV ONE (13:50)
[2019-05-09] MEDS ORDERED: KETAMINE 500 MG/10 ML VIAL ONE (13:51)
[2019-05-09] MEDS ORDERED: MIDAZOLAM 2 MG/2 ML VIAL ONE (13:51)
[2019-05-09] MEDS ORDERED: ONDANSETRON 4 MG/2 ML VIAL ONE (13:51)
[2019-05-09] MEDS ORDERED: SODIUM CHLORIDE 0.9% 250 ML IV ONE (13:51)
[2019-05-09] MEDS ORDERED: fentaNYL 100 MCG/2 ML VIAL ONE (13:51)
[2019-05-09] MEDS ORDERED: DEXTROSE 10% 25 GM/250 ML BAG IV PRN (15:56)
[2019-05-09] MEDS: FLUCONAZOLE 200 MG TABLET PO SCH (16:11)
[2019-05-09] MEDS: MAGNESIUM CHLORIDE 64 MG TABLET PO SCH (16:11)
[2019-05-09] MEDS: POTASSIUM CHLORIDE 20 MEQ TABLET PO SCH (16:11)
[2019-05-09] MEDS: DULoxetine 30 MG CAPSULE PO SCH (16:12)
[2019-05-09] MEDS: metroNIDAZOLE INJ 500 MG in PREMIX 1 EACH IV SCH ×2 (16:17→22:15)
[2019-05-09] MEDS: traZODone 50 MG TABLET PO SCH (21:46)
[2019-05-10] MEDS: INSULIN REGULAR 100 UNIT/ML SUBCUT SCH ×4 (01:05→17:10)
[2019-05-10] MEDS: VANCOMYCIN INJ 1,500 MG in SODIUM CHLORIDE 0.9% 500 ML IV SCH ×3 (01:17→17:10)
[2019-05-10 05:13] LABS: Basophils % 0.2 % (0.0-0.8); Eosinophils # 0.1 10*3/uL (0.0-0.87); Eosinophils % 1.6 % (0.00-10.9); Hematocrit 30.6 VOL% (35.7-47.0); Immature Granulocytes % 1.1 %; Immature Granulocytes Absolute 0.05 #; Lymphocytes # 1.5 10*3/uL (1.4-4.0); Lymphocytes % 33.3 % (21.3-54.2); Mean Corpuscular HGB Conc 32.7 GM/DL (32-36); Mean Corpuscular Volume 93.6 FL (87-102); Mean Platelet Volume 8.2 FL (9.6-12.0); Monocytes % 8.4 % (1.7-12.7); Neutrophils % 55.4 % (38.7-73.9); Platelet Count 205 T/CUMM (130-400); Red Blood Count 3.27 MC/CUMM (3.8-5.5); Red Cell Distribution Width 12.1 % (9.3-17.3); White Blood Count 4.4 T/CUMM (4-12)
[2019-05-10 05:39] LABS: Calcium 8.5 MG/DL (8.5-10.1); Osmolality,Calculated 279.1 MOS/KG (273-304)
[2019-05-10] MEDS: HYDROmorphone 2 MG/1 ML VIAL IV PRN ×4 (05:56→20:39)
[2019-05-10] MEDS: metroNIDAZOLE INJ 500 MG in PREMIX 1 EACH IV SCH ×3 (07:20→22:05)
[2019-05-10] MEDS: INSULIN GLARGINE 100 UNIT/ML SUBCUT SCH ×3 (08:54→20:38)
[2019-05-10] MEDS: DULoxetine 30 MG CAPSULE PO SCH (08:54)
[2019-05-10] MEDS: MAGNESIUM CHLORIDE 64 MG TABLET PO SCH (08:54)
[2019-05-10] MEDS: POTASSIUM CHLORIDE 20 MEQ TABLET PO SCH (08:55)
[2019-05-10] MEDS: glyBURIDE 5 MG TABLET PO SCH ×2 (08:55→16:52)
[2019-05-10] MEDS: GABAPENTIN 300 MG CAPSULE PO SCH ×3 (08:55→20:37)
[2019-05-10] MEDS: LACTOBACILLUS ACIDOPHILUS/BULGARICUS CAPLET PO SCH ×2 (08:55→20:35)
[2019-05-10] MEDS: SODIUM HYPOCHLORITE 0.25% IRRIG 473 ML BOTTLE TOP SCH (08:56)
[2019-05-10] MEDS: ONDANSETRON 4 MG/2 ML VIAL IV PRN ×2 (11:19→15:55)
[2019-05-10] MEDS: SODIUM CHLORIDE 0.9% 1,000 ML IV SCH (17:10)
[2019-05-10] MEDS: traZODone 50 MG TABLET PO SCH (20:36)
[2019-05-11] MEDS: INSULIN REGULAR 100 UNIT/ML SUBCUT SCH ×4 (00:33→17:46)
[2019-05-11] MEDS: VANCOMYCIN INJ 1,500 MG in SODIUM CHLORIDE 0.9% 500 ML IV SCH ×3 (01:09→16:56)
[2019-05-11] MEDS: HYDROmorphone 2 MG/1 ML VIAL IV PRN ×4 (01:41→18:11)
[2019-05-11] MEDS: SODIUM CHLORIDE 0.9% 1,000 ML IV SCH ×2 (05:55→06:37)
[2019-05-11] MEDS: MEROPENEM 500 MG in SODIUM CHLORIDE 0.9% 100 ML IV SCH (05:56)
[2019-05-11] MEDS: metroNIDAZOLE INJ 500 MG in PREMIX 1 EACH IV SCH ×3 (06:06→22:53)
[2019-05-11 07:14] LABS: Calcium 8.2 MG/DL (8.5-10.1); Osmolality,Calculated 282.4 MOS/KG (273-304)
[2019-05-11] MEDS ORDERED: ERGOCALCIFEROL 50,000 UNIT CAPSULE PO SCH (07:25)
[2019-05-11] MEDS: MAGNESIUM CHLORIDE 64 MG TABLET PO SCH (08:35)
[2019-05-11] MEDS: DULoxetine 30 MG CAPSULE PO SCH (08:35)
[2019-05-11] MEDS: glyBURIDE 5 MG TABLET PO SCH ×2 (08:36→16:56)
[2019-05-11] MEDS: SODIUM HYPOCHLORITE 0.25% IRRIG 473 ML BOTTLE TOP SCH (08:36)
[2019-05-11] MEDS: LACTOBACILLUS ACIDOPHILUS/BULGARICUS CAPLET PO SCH ×2 (08:36→21:07)
[2019-05-11] MEDS: GABAPENTIN 300 MG CAPSULE PO SCH ×3 (08:36→21:06)
[2019-05-11] MEDS: POTASSIUM CHLORIDE 20 MEQ TABLET PO SCH (08:36)
[2019-05-11] MEDS: INSULIN GLARGINE 100 UNIT/ML SUBCUT SCH ×2 (08:37→21:08)
[2019-05-11] MEDS: ONDANSETRON 4 MG/2 ML VIAL IV PRN ×3 (08:56→18:12)
[2019-05-11] MEDS: traZODone 50 MG TABLET PO SCH (21:06)
[2019-05-12] MEDS: HYDROmorphone 2 MG/1 ML VIAL IV PRN ×5 (00:58→22:16)
[2019-05-12] MEDS: INSULIN REGULAR 100 UNIT/ML SUBCUT SCH ×4 (00:58→17:59)
[2019-05-12] MEDS: VANCOMYCIN INJ 1,500 MG in SODIUM CHLORIDE 0.9% 500 ML IV SCH ×3 (01:05→18:00)
[2019-05-12] MEDS: ONDANSETRON 4 MG/2 ML VIAL IV PRN ×2 (05:11→10:34)
[2019-05-12] MEDS: LOPERAMIDE 2 MG CAPSULE PO PRN ×2 (05:12→15:09)
[2019-05-12 05:33] LABS: Basophils % 0.4 % (0.0-0.8); Eosinophils # 0.1 10*3/uL (0.0-0.87); Eosinophils % 1.9 % (0.00-10.9); Hematocrit 32.8 VOL% (35.7-47.0); Hemoglobin 10.6 GM/DL (12.0-16.0); Immature Granulocytes Absolute 0.05 #; Lymphocytes # 1.9 10*3/uL (1.4-4.0); Lymphocytes % 38.7 % (21.3-54.2); Mean Corpuscular HGB Conc 32.3 GM/DL (32-36); Mean Corpuscular Volume 93.2 FL (87-102); Mean Platelet Volume 8.4 FL (9.6-12.0); Monocytes % 8.8 % (1.7-12.7); Neutrophils % 49.2 % (38.7-73.9); Platelet Count 236 T/CUMM (130-400); Red Blood Count 3.52 MC/CUMM (3.8-5.5); Red Cell Distribution Width 12.3 % (9.3-17.3); White Blood Count 4.8 T/CUMM (4-12)
[2019-05-12 06:00] LABS: Calcium 8.4 MG/DL (8.5-10.1); Osmolality,Calculated 282.8 MOS/KG (273-304)
[2019-05-12] MEDS: metroNIDAZOLE INJ 500 MG in PREMIX 1 EACH IV SCH ×2 (06:47→15:00)
[2019-05-12] MEDS: SODIUM CHLORIDE 0.9% 1,000 ML IV SCH ×3 (06:47→09:00)
[2019-05-12] MEDS: INSULIN GLARGINE 100 UNIT/ML SUBCUT SCH ×2 (08:59→21:16)
[2019-05-12] MEDS: LACTOBACILLUS ACIDOPHILUS/BULGARICUS CAPLET PO SCH ×2 (08:59→20:38)
[2019-05-12] MEDS: POTASSIUM CHLORIDE 20 MEQ TABLET PO SCH (08:59)
[2019-05-12] MEDS: SODIUM HYPOCHLORITE 0.25% IRRIG 473 ML BOTTLE TOP SCH (09:00)
[2019-05-12] MEDS: MAGNESIUM CHLORIDE 64 MG TABLET PO SCH (09:00)
[2019-05-12] MEDS: DULoxetine 30 MG CAPSULE PO SCH (09:00)
[2019-05-12] MEDS: glyBURIDE 5 MG TABLET PO SCH ×2 (09:00→18:00)
[2019-05-12] MEDS: GABAPENTIN 300 MG CAPSULE PO SCH ×3 (09:00→20:38)
[2019-05-12] MEDS: traZODone 50 MG TABLET PO SCH (20:38)
[2019-05-12] MEDS ORDERED: LINDANE 1% TOP ONE (20:39)
[2019-05-13] MEDS: metroNIDAZOLE INJ 500 MG in PREMIX 1 EACH IV SCH ×2 (00:30→06:22)
[2019-05-13] MEDS: INSULIN REGULAR 100 UNIT/ML SUBCUT SCH ×4 (00:43→18:43)
[2019-05-13] MEDS: VANCOMYCIN INJ 1,500 MG in SODIUM CHLORIDE 0.9% 500 ML IV SCH ×3 (01:44→18:53)
[2019-05-13] MEDS: HYDROmorphone 2 MG/1 ML VIAL IV PRN ×5 (03:03→21:19)
[2019-05-13 06:05] LABS: Basophils % 0.4 % (0.0-0.8); Eosinophils # 0.1 10*3/uL (0.0-0.87); Eosinophils % 1.5 % (0.00-10.9); Hematocrit 34.5 VOL% (35.7-47.0); Immature Granulocytes % 1.5 %; Immature Granulocytes Absolute 0.07 #; Lymphocytes # 1.4 10*3/uL (1.4-4.0); Lymphocytes % 30.8 % (21.3-54.2); Mean Corpuscular HGB Conc 31.9 GM/DL (32-36); Mean Corpuscular Volume 92.5 FL (87-102); Mean Platelet Volume 8.3 FL (9.6-12.0); Monocytes % 7.5 % (1.7-12.7); Neutrophils % 58.3 % (38.7-73.9); Platelet Count 249 T/CUMM (130-400); Red Blood Count 3.73 MC/CUMM (3.8-5.5); Red Cell Distribution Width 12.3 % (9.3-17.3); White Blood Count 4.7 T/CUMM (4-12)
[2019-05-13 06:46] LABS: Calcium 8.6 MG/DL (8.5-10.1); Osmolality,Calculated 278.3 MOS/KG (273-304)
[2019-05-13] MEDS: SODIUM CHLORIDE 0.9% 1,000 ML IV SCH ×3 (07:10→21:28)
[2019-05-13] MEDS ORDERED: LINDANE 1% TOP ONE (08:56)
[2019-05-13] MEDS: MAGNESIUM CHLORIDE 64 MG TABLET PO SCH (13:01)
[2019-05-13] MEDS: LACTOBACILLUS ACIDOPHILUS/BULGARICUS CAPLET PO SCH ×2 (13:01→21:17)
[2019-05-13] MEDS: DULoxetine 30 MG CAPSULE PO SCH (13:01)
[2019-05-13] MEDS: GABAPENTIN 300 MG CAPSULE PO SCH ×3 (13:02→21:17)
[2019-05-13] MEDS: POTASSIUM CHLORIDE 20 MEQ TABLET PO SCH (13:02)
[2019-05-13] MEDS: glyBURIDE 5 MG TABLET PO SCH ×2 (13:02→18:43)
[2019-05-13] MEDS: INSULIN GLARGINE 100 UNIT/ML SUBCUT SCH ×2 (13:03→21:24)
[2019-05-13] MEDS: SODIUM HYPOCHLORITE 0.25% IRRIG 473 ML BOTTLE TOP SCH (18:43)
[2019-05-13] MEDS: traZODone 50 MG TABLET PO SCH (21:17)
[2019-05-14] MEDS: INSULIN REGULAR 100 UNIT/ML SUBCUT SCH ×4 (00:30→19:55)
[2019-05-14] MEDS: VANCOMYCIN INJ 1,500 MG in SODIUM CHLORIDE 0.9% 500 ML IV SCH ×3 (00:35→19:54)
[2019-05-14] MEDS: SODIUM CHLORIDE 0.9% 1,000 ML IV SCH ×3 (03:54→23:16)
[2019-05-14] MEDS: HYDROmorphone 2 MG/1 ML VIAL IV PRN ×7 (04:18→21:46)
[2019-05-14 05:17] LABS: Calcium 8.8 MG/DL (8.5-10.1)
[2019-05-14] MEDS: LACTOBACILLUS ACIDOPHILUS/BULGARICUS CAPLET PO SCH ×2 (08:45→20:38)
[2019-05-14] MEDS: MAGNESIUM CHLORIDE 64 MG TABLET PO SCH (08:45)
[2019-05-14] MEDS: glyBURIDE 5 MG TABLET PO SCH ×2 (08:45→16:17)
[2019-05-14] MEDS: DULoxetine 30 MG CAPSULE PO SCH (08:45)
[2019-05-14] MEDS: GABAPENTIN 300 MG CAPSULE PO SCH ×3 (08:46→20:39)
[2019-05-14] MEDS: POTASSIUM CHLORIDE 20 MEQ TABLET PO SCH (08:46)
[2019-05-14] MEDS: ONDANSETRON 4 MG/2 ML VIAL IV PRN (08:57)
[2019-05-14] MEDS: INSULIN GLARGINE 100 UNIT/ML SUBCUT SCH ×2 (09:04→21:46)
[2019-05-14] MEDS: SODIUM HYPOCHLORITE 0.25% IRRIG 473 ML BOTTLE TOP SCH (12:34)
[2019-05-14] MEDS: traZODone 50 MG TABLET PO SCH (20:39)
[2019-05-15] MEDS: INSULIN REGULAR 100 UNIT/ML SUBCUT SCH ×3 (00:27→11:23)
[2019-05-15] MEDS: VANCOMYCIN INJ 1,500 MG in SODIUM CHLORIDE 0.9% 500 ML IV SCH ×2 (06:33→08:53)
[2019-05-15] MEDS: HYDROmorphone 2 MG/1 ML VIAL IV PRN ×3 (07:08→15:24)
[2019-05-15] MEDS: INSULIN GLARGINE 100 UNIT/ML SUBCUT SCH (08:51)
[2019-05-15] MEDS: GABAPENTIN 300 MG CAPSULE PO SCH ×2 (08:52→15:24)
[2019-05-15] MEDS: POTASSIUM CHLORIDE 20 MEQ TABLET PO SCH (08:52)
[2019-05-15] MEDS: MAGNESIUM CHLORIDE 64 MG TABLET PO SCH (08:52)
[2019-05-15] MEDS: LACTOBACILLUS ACIDOPHILUS/BULGARICUS CAPLET PO SCH (08:52)
[2019-05-15] MEDS: DULoxetine 30 MG CAPSULE PO SCH (08:52)
[2019-05-15] MEDS: glyBURIDE 5 MG TABLET PO SCH (08:52)
[2019-05-15] MEDS: SODIUM HYPOCHLORITE 0.25% IRRIG 473 ML BOTTLE TOP SCH (08:53)
[2019-05-15 16:22] VITALS: BP 149/94
[2019-05-15] MEDS ORDERED: SULFAMETHOX/TRIMETHOPRIM 800-160 MG TABLET PO SCH (21:00)
== END 2019-05-15 16:30 | disposition swing bed (61) | DRG 951 ==
LOC: N.ED 18:31 → SUATTDRO 21:52 → N.EDINP 21:52 → N.3E 22:23
PROVIDERS: ADMIT Family Medicine; ATTEND Family Medicine

== ENCOUNTER 2019-06-08 18:44 | Inpatient (IN) ==
[2019-06-08] MEDS ORDERED: SODIUM CHLORIDE 0.9% 1,000 ML IV STA ×2 (19:41→22:21)
[2019-06-08] MEDS ORDERED: INSULIN REGULAR 100 UNIT/ML IV STA ×2 (19:42→23:31)
[2019-06-08] MEDS ORDERED: VANCOMYCIN INJ 1,000 MG in SODIUM CHLORIDE 0.9% 250 ML IV STA (19:43)
[2019-06-08] MEDS ORDERED: CEFEPIME 2,000 MG in SODIUM CHLORIDE 0.9% 100 ML IV STA ×2 (19:43→19:45)
[2019-06-08] MEDS ORDERED: VANCOMYCIN INJ 1,500 MG in SODIUM CHLORIDE 0.9% 500 ML IV STA (19:47)
[2019-06-08 20:44] LABS: Apearance,Urine CLEAR (Clear); Bilirubin,Urine Negative (Negative); Blood, Urine Small mg/dL (Negative); Glucose,Urine (UA) >=500 mg/dL (Negative); Ketones,Urine Negative (Negative); Mucus,Urine Occasional /LPF (Occasional); Nitrite,Urine Negative (Negative); Protein,Urine Negative; RBC,Urine 5 /HPF (0-4); Squamous Epithelial Cell,Urine Occasional /HPF (0-10); Urine Color Straw (Yellow); Urine Specific Gravity 1.029 (1.001-1.035); Urine Urobilinogen < 2.0 EU/DL (0.2-1.0); WBC,Urine 9 /HPF (0-6)
[2019-06-08 21:03] LABS: Basophils # 0.1 10*3/uL (0.0-0.2); Basophils % 0.4 % (0.0-0.8); Eosinophils # 0.1 10*3/uL (0.0-0.87); Eosinophils % 0.6 % (0.00-10.9); Hemoglobin 11.4 GM/DL (12.0-16.0); Immature Granulocytes % 0.9 %; Immature Granulocytes Absolute 0.12 #; Lymphocytes # 1.9 10*3/uL (1.4-4.0); Lymphocytes % 13.4 % (21.3-54.2); Mean Corpuscular HGB Conc 34.5 GM/DL (32-36); Mean Corpuscular Volume 86.6 FL (87-102); Mean Platelet Volume 8.8 FL (9.6-12.0); Monocytes % 6.3 % (1.7-12.7); Neutrophils % 78.4 % (38.7-73.9); Platelet Count 249 T/CUMM (130-400); Red Blood Count 3.81 MC/CUMM (3.8-5.5); Red Cell Distribution Width 12.4 % (9.3-17.3); White Blood Count 14.1 T/CUMM (4-12)
[2019-06-08] MEDS ORDERED: MORPHINE 4 MG/1 ML VIAL IV STA (21:13)
[2019-06-08] MEDS ORDERED: ONDANSETRON 4 MG/2 ML VIAL IV STA (21:14)
[2019-06-08 21:26] LABS: Albumin 2.5 G/DL (3.4-5.0); Bilirubin,Total 0.4 MG/DL (0.2-1.0); Calcium 8.7 MG/DL (8.5-10.1); Osmolality,Calculated 276.5 MOS/KG (273-304); Total Protein 7.6 G/DL (6.4-8.3)
[2019-06-08 22:05] LABS: VBG Base Excess -20.1 MEQ/L (0-4); VBG HCO3 8.8 MEQ/L (24-28); VBG Oxygen Saturation 99.4 %; VBG PCO2 18.5 MMHG (41-51); VBG PH 7.188
[2019-06-08 22:12] LABS: Sedimentation Rate-Westergren 107 MM/HR (0-20)
[2019-06-08 22:40] LABS: Platelet Estimate Normal
[2019-06-08] MEDS ORDERED: FUROSEMIDE 20 MG TABLET PO PRN (23:37)
[2019-06-08] MEDS ORDERED: GLUCAGON 1 MG VIAL IM PRN (23:39)
[2019-06-08] MEDS ORDERED: DEXTROSE 50% 25 GM/50 ML VIAL IV PRN (23:39)
[2019-06-09] MEDS ORDERED: INSULIN REGULAR 100 UNIT/ML SUBCUT SCH
[2019-06-09] MEDS ORDERED: HYDROmorphone 2 MG/1 ML VIAL IV STA (00:15)
[2019-06-09] MEDS: ENOXAPARIN 40 MG/0.4 ML SYRINGE SUBCUT SCH (00:45)
[2019-06-09 01:56] LABS: ABG Base Excess 0.7 MMOL/L (-2.5-2.5); ABG Oxygen Saturation 99.3 % (95-100); ABG PCO2 26.6 MM HG (35-48); ABG PH 7.533 (7.35-7.45); ABG TCO2 20.2 MMOL/L (23-27); Allen Test Positive; Pt O2 Delivery Device Room Air
[2019-06-09] MEDS ORDERED: ACETAMINOPHEN 325 MG TABLET PO ONE (02:07)
[2019-06-09] MEDS: traZODone 50 MG TABLET PO SCH ×2 (02:42→21:27)
[2019-06-09] MEDS: INSULIN REGULAR 100 UNIT/ML SUBCUT SCH ×6 (02:42→21:29)
[2019-06-09] MEDS: INSULIN GLARGINE 100 UNIT/ML SUBCUT SCH ×3 (02:42→21:28)
[2019-06-09] MEDS: SODIUM CHLORIDE 0.9% 1,000 ML IV SCH ×3 (04:11→15:24)
[2019-06-09] MEDS: MEPERIDINE 25 MG/1 ML VIAL IV PRN ×4 (05:25→22:37)
[2019-06-09 06:18] LABS: Basophils # 0.1 10*3/uL (0.0-0.2); Basophils % 0.4 % (0.0-0.8); Eosinophils # 0.1 10*3/uL (0.0-0.87); Hemoglobin 10.3 GM/DL (12.0-16.0); Immature Granulocytes % 1.1 %; Immature Granulocytes Absolute 0.13 #; Lymphocytes # 1.7 10*3/uL (1.4-4.0); Lymphocytes % 13.9 % (21.3-54.2); Mean Corpuscular HGB Conc 33.2 GM/DL (32-36); Mean Corpuscular Volume 90.1 FL (87-102); Monocytes % 6.6 % (1.7-12.7); Platelet Count 215 T/CUMM (130-400); Red Blood Count 3.44 MC/CUMM (3.8-5.5); Red Cell Distribution Width 12.3 % (9.3-17.3); White Blood Count 12.3 T/CUMM (4-12)
[2019-06-09] MEDS: cefTRIAXone 500 MG in SYRINGE 1 EACH IV SCH (06:18)
[2019-06-09 06:38] LABS: Calcium 7.7 MG/DL (8.5-10.1); Osmolality,Calculated 276.2 MOS/KG (273-304)
[2019-06-09 06:48] LABS: Platelet Estimate Adequate
[2019-06-09 08:31] LABS: Calcium 8.1 MG/DL (8.5-10.1); Osmolality,Calculated 276.2 MOS/KG (273-304)
[2019-06-09] MEDS: GABAPENTIN 300 MG CAPSULE PO SCH ×3 (09:26→22:42)
[2019-06-09] MEDS: PANTOPRAZOLE 40 MG TABLET PO SCH (09:26)
[2019-06-09] MEDS: DULoxetine 30 MG CAPSULE PO SCH (09:26)
[2019-06-09] MEDS: POTASSIUM CHLORIDE RIDER 10 MEQ in PREMIX 1 EACH IV PRN ×4 (10:45→13:59)
[2019-06-09] MEDS: VANCOMYCIN INJ 1,500 MG in SODIUM CHLORIDE 0.9% 500 ML IV SCH (11:32)
[2019-06-09 13:17] LABS: Calcium 7.6 MG/DL (8.5-10.1)
[2019-06-09] MEDS ORDERED: FAMOTIDINE 20 MG TABLET PO ONE (14:06)
[2019-06-09] MEDS ORDERED: DIAZEPAM 5 MG TABLET PO ONE (14:06)
[2019-06-09 17:55] LABS: Calcium 7.6 MG/DL (8.5-10.1); Osmolality,Calculated 273.8 MOS/KG (273-304)
[2019-06-09] MEDS: ONDANSETRON 4 MG/2 ML VIAL IV PRN (18:02)
[2019-06-09] MEDS: SODIUM HYPOCHLORITE 0.25% IRRIG 473 ML BOTTLE TOP SCH (19:02)
[2019-06-10] MEDS: VANCOMYCIN INJ 1,500 MG in SODIUM CHLORIDE 0.9% 500 ML IV SCH ×2 (00:06→14:57)
[2019-06-10] MEDS: INSULIN REGULAR 100 UNIT/ML SUBCUT SCH ×6 (00:23→21:35)
[2019-06-10] MEDS: SODIUM CHLORIDE 0.9% 1,000 ML IV SCH ×4 (00:23→23:19)
[2019-06-10] MEDS: ENOXAPARIN 40 MG/0.4 ML SYRINGE SUBCUT SCH (01:04)
[2019-06-10] MEDS: MEPERIDINE 25 MG/1 ML VIAL IV PRN ×3 (03:38→21:25)
[2019-06-10] MEDS: cefTRIAXone 500 MG in SYRINGE 1 EACH IV SCH (05:11)
[2019-06-10 05:37] LABS: Basophils % 0.1 % (0.0-0.8); Eosinophils # 0.1 10*3/uL (0.0-0.87); Eosinophils % 1.3 % (0.00-10.9); Hematocrit 25.6 VOL% (35.7-47.0); Hemoglobin 8.7 GM/DL (12.0-16.0); Immature Granulocytes % 1.2 %; Immature Granulocytes Absolute 0.13 #; Lymphocytes # 1.7 10*3/uL (1.4-4.0); Lymphocytes % 15.7 % (21.3-54.2); Mean Corpuscular Volume 88.3 FL (87-102); Mean Platelet Volume 8.9 FL (9.6-12.0); Monocytes % 6.2 % (1.7-12.7); Neutrophils % 75.5 % (38.7-73.9); Platelet Count 214 T/CUMM (130-400); Red Cell Distribution Width 12.2 % (9.3-17.3)
[2019-06-10 06:03] LABS: Band Neutrophils 4 % (0-10); Eosinophils 1 % (0-10); Hypochromasia 1+; Lymphocytes 11 % (20-55); Platelet Estimate Adequate; Segmented Neutrophils 81 % (50-85); Total Cells Counted 100
[2019-06-10 06:08] LABS: Calcium 7.8 MG/DL (8.5-10.1)
[2019-06-10] MEDS ORDERED: FAMOTIDINE 20 MG TABLET PO ONE (07:00)
[2019-06-10] MEDS ORDERED: PROPOFOL 200 MG/20 ML VIAL IV ONE (08:29)
[2019-06-10] MEDS ORDERED: SEVOFLURANE 1 UNIT/15 MINUTE INH ONE (08:29)
[2019-06-10] MEDS ORDERED: LIDOCAINE 2% 5 ML VIAL ONE (08:29)
[2019-06-10] MEDS ORDERED: MIDAZOLAM 2 MG/2 ML VIAL ONE (08:30)
[2019-06-10] MEDS ORDERED: SUCCINYLCHOLINE 200 MG/10 ML VIAL ONE (08:30)
[2019-06-10] MEDS ORDERED: PHENYLEPHRINE 1 MG/10 ML SYRINGE IV ONE (08:30)
[2019-06-10] MEDS ORDERED: fentaNYL 100 MCG/2 ML VIAL ONE ×2 (08:30→10:47)
[2019-06-10] MEDS ORDERED: ONDANSETRON 4 MG/2 ML VIAL ONE (08:30)
[2019-06-10] MEDS ORDERED: ROCURONIUM 100 MG/10 ML VIAL IV ONE (08:30)
[2019-06-10] MEDS ORDERED: MAGNESIUM SULF RIDER 4 GM in PREMIX 1 EACH IV ONE (08:50)
[2019-06-10] MEDS: INSULIN GLARGINE 100 UNIT/ML SUBCUT SCH ×2 (09:49→21:26)
[2019-06-10] MEDS: PANTOPRAZOLE 40 MG TABLET PO SCH (09:50)
[2019-06-10] MEDS: DULoxetine 30 MG CAPSULE PO SCH (09:50)
[2019-06-10] MEDS: SODIUM HYPOCHLORITE 0.25% IRRIG 473 ML BOTTLE TOP SCH (09:50)
[2019-06-10] MEDS: GABAPENTIN 300 MG CAPSULE PO SCH ×3 (09:50→21:23)
[2019-06-10] MEDS: traZODone 50 MG TABLET PO SCH (21:23)
[2019-06-11] MEDS: INSULIN REGULAR 100 UNIT/ML SUBCUT SCH ×6 (01:50→21:14)
[2019-06-11] MEDS: ENOXAPARIN 40 MG/0.4 ML SYRINGE SUBCUT SCH ×2 (01:52→01:55)
[2019-06-11] MEDS: MEPERIDINE 25 MG/1 ML VIAL IV PRN ×2 (01:52→07:10)
[2019-06-11] MEDS: VANCOMYCIN INJ 1,500 MG in SODIUM CHLORIDE 0.9% 500 ML IV SCH ×2 (03:32→15:20)
[2019-06-11 04:49] LABS: Basophils % 0.5 % (0.0-0.8); Eosinophils # 0.1 10*3/uL (0.0-0.87); Hematocrit 25.5 VOL% (35.7-47.0); Hemoglobin 8.2 GM/DL (12.0-16.0); Immature Granulocytes % 1.5 %; Lymphocytes # 1.5 10*3/uL (1.4-4.0); Lymphocytes % 22.3 % (21.3-54.2); Mean Corpuscular HGB Conc 32.2 GM/DL (32-36); Mean Corpuscular Volume 91.1 FL (87-102); Mean Platelet Volume 9.1 FL (9.6-12.0); Monocytes % 5.4 % (1.7-12.7); Neutrophils % 68.3 % (38.7-73.9); Platelet Count 233 T/CUMM (130-400); Red Cell Distribution Width 12.2 % (9.3-17.3); White Blood Count 6.6 T/CUMM (4-12)
[2019-06-11 05:15] LABS: Band Neutrophils 1 % (0-10); Eosinophils 1 % (0-10); Hypochromasia Slight; Lymphocytes 26 % (20-55); Platelet Estimate Adequate; Segmented Neutrophils 68 % (50-85); Total Cells Counted 100
[2019-06-11 05:21] LABS: Calcium 7.7 MG/DL (8.5-10.1); Osmolality,Calculated 281.7 MOS/KG (273-304)
[2019-06-11] MEDS ORDERED: ACETAMINOPHEN 325 MG TABLET PO PRN (07:25)
[2019-06-11] MEDS ORDERED: HYDROmorphone 2 MG/1 ML VIAL IV ONE (08:46)
[2019-06-11] MEDS: INSULIN GLARGINE 100 UNIT/ML SUBCUT SCH ×2 (09:16→21:14)
[2019-06-11] MEDS: PANTOPRAZOLE 40 MG TABLET PO SCH (09:16)
[2019-06-11] MEDS: DULoxetine 30 MG CAPSULE PO SCH (09:16)
[2019-06-11] MEDS: GABAPENTIN 300 MG CAPSULE PO SCH ×3 (09:16→21:13)
[2019-06-11] MEDS: cefTRIAXone 500 MG in SYRINGE 1 EACH IV SCH (09:21)
[2019-06-11] MEDS: SODIUM HYPOCHLORITE 0.25% IRRIG 473 ML BOTTLE TOP SCH (09:22)
[2019-06-11] MEDS: SODIUM CHLORIDE 0.9% 1,000 ML IV SCH ×3 (09:43→15:21)
[2019-06-11] MEDS: HYDROmorphone 2 MG TABLET PO PRN ×3 (13:04→21:13)
[2019-06-11] MEDS: ERTAPENEM 1,000 MG in SODIUM CHLORIDE 0.9% 100 ML IV SCH (17:25)
[2019-06-11] MEDS: ONDANSETRON 4 MG/2 ML VIAL IV PRN (18:14)
[2019-06-11] MEDS: traZODone 50 MG TABLET PO SCH (21:13)
[2019-06-12] MEDS: SODIUM CHLORIDE 0.9% 1,000 ML IV SCH ×2 (00:58→14:26)
[2019-06-12] MEDS: INSULIN REGULAR 100 UNIT/ML SUBCUT SCH ×6 (00:59→21:07)
[2019-06-12] MEDS: VANCOMYCIN INJ 1,500 MG in SODIUM CHLORIDE 0.9% 500 ML IV SCH ×2 (01:03→14:44)
[2019-06-12 04:45] LABS: Basophils % 0.4 % (0.0-0.8); Eosinophils # 0.1 10*3/uL (0.0-0.87); Eosinophils % 1.8 % (0.00-10.9); Hematocrit 24.4 VOL% (35.7-47.0); Hemoglobin 7.9 GM/DL (12.0-16.0); Immature Granulocytes % 2.7 %; Immature Granulocytes Absolute 0.14 #; Lymphocytes # 1.6 10*3/uL (1.4-4.0); Lymphocytes % 32.1 % (21.3-54.2); Mean Corpuscular HGB Conc 32.4 GM/DL (32-36); Mean Corpuscular Volume 90.7 FL (87-102); Monocytes % 6.1 % (1.7-12.7); Neutrophils % 56.9 % (38.7-73.9); Platelet Count 248 T/CUMM (130-400); Red Blood Count 2.69 MC/CUMM (3.8-5.5); Red Cell Distribution Width 12.4 % (9.3-17.3); White Blood Count 5.1 T/CUMM (4-12)
[2019-06-12 05:11] LABS: Calcium 8.3 MG/DL (8.5-10.1); Osmolality,Calculated 282.3 MOS/KG (273-304)
[2019-06-12] MEDS: POTASSIUM CHLORIDE RIDER 10 MEQ in PREMIX 1 EACH IV PRN ×2 (05:30→06:29)
[2019-06-12] MEDS: HYDROmorphone 2 MG TABLET PO PRN ×4 (05:41→21:05)
[2019-06-12] MEDS ORDERED: MAGNESIUM SULF RIDER 2 GM in PREMIX 1 EACH IV PRN (08:23)
[2019-06-12] MEDS ORDERED: MAGNESIUM SULF RIDER 4 GM in PREMIX 1 EACH IV PRN (08:23)
[2019-06-12] MEDS: PANTOPRAZOLE 40 MG TABLET PO SCH (09:05)
[2019-06-12] MEDS: GABAPENTIN 300 MG CAPSULE PO SCH ×3 (09:05→21:10)
[2019-06-12] MEDS: DULoxetine 30 MG CAPSULE PO SCH (09:05)
[2019-06-12] MEDS: INSULIN GLARGINE 100 UNIT/ML SUBCUT SCH ×2 (09:05→21:06)
[2019-06-12] MEDS: SODIUM HYPOCHLORITE 0.25% IRRIG 473 ML BOTTLE TOP SCH (09:20)
[2019-06-12] MEDS ORDERED: HYDROmorphone 2 MG/1 ML VIAL IV PRN (10:08)
[2019-06-12] MEDS: ERTAPENEM 1,000 MG in SODIUM CHLORIDE 0.9% 100 ML IV SCH (16:54)
[2019-06-12] MEDS: traZODone 50 MG TABLET PO SCH (21:04)
[2019-06-13] MEDS: INSULIN REGULAR 100 UNIT/ML SUBCUT SCH ×4 (00:24→13:24)
[2019-06-13] MEDS: SODIUM CHLORIDE 0.9% 1,000 ML IV SCH ×2 (02:03→06:07)
[2019-06-13] MEDS: VANCOMYCIN INJ 1,500 MG in SODIUM CHLORIDE 0.9% 500 ML IV SCH (02:04)
[2019-06-13] MEDS: HYDROmorphone 2 MG TABLET PO PRN ×2 (02:10→09:03)
[2019-06-13 05:57] LABS: Basophils % 0.4 % (0.0-0.8); Eosinophils # 0.1 10*3/uL (0.0-0.87); Eosinophils % 1.2 % (0.00-10.9); Hemoglobin 8.7 GM/DL (12.0-16.0); Immature Granulocytes % 3.6 %; Immature Granulocytes Absolute 0.18 #; Lymphocytes # 1.6 10*3/uL (1.4-4.0); Lymphocytes % 31.8 % (21.3-54.2); Mean Corpuscular HGB Conc 32.2 GM/DL (32-36); Mean Corpuscular Volume 91.8 FL (87-102); Mean Platelet Volume 8.5 FL (9.6-12.0); Monocytes % 5.1 % (1.7-12.7); Neutrophils % 57.9 % (38.7-73.9); Platelet Count 281 T/CUMM (130-400); Red Blood Count 2.94 MC/CUMM (3.8-5.5); Red Cell Distribution Width 12.3 % (9.3-17.3); White Blood Count 5.1 T/CUMM (4-12)
[2019-06-13 06:12] LABS: Calcium 8.1 MG/DL (8.5-10.1); Osmolality,Calculated 282.5 MOS/KG (273-304)
[2019-06-13] MEDS: INSULIN GLARGINE 100 UNIT/ML SUBCUT SCH (09:25)
[2019-06-13] MEDS: PANTOPRAZOLE 40 MG TABLET PO SCH (09:26)
[2019-06-13] MEDS: DULoxetine 30 MG CAPSULE PO SCH (09:26)
[2019-06-13] MEDS: GABAPENTIN 300 MG CAPSULE PO SCH (09:26)
[2019-06-13 12:01] VITALS: BP 145/81
== END 2019-06-13 14:35 | disposition home or self-care (01) | DRG 380 ==
LOC: N.ED 18:44 → N.EDINP 23:31 → SUATTDRO 23:31 → N.3E 06-09 00:45
PROVIDERS: ADMIT Internal Medicine; ATTEND Internal Medicine

== ENCOUNTER 2019-06-27 17:19 | Inpatient (IN) ==
[2019-06-27] MEDS ORDERED: ACETAMINOPHEN 500 MG TABLET PO STA (17:41)
[2019-06-27 17:46] LABS: Basophils % 0.1 % (0.0-0.8); Eosinophils % 0.3 % (0.00-10.9); Hematocrit 41.6 VOL% (35.7-47.0); Hemoglobin 14.2 GM/DL (12.0-16.0); Immature Granulocytes % 0.4 %; Immature Granulocytes Absolute 0.03 #; Lymphocytes # 1.1 10*3/uL (1.4-4.0); Lymphocytes % 14.9 % (21.3-54.2); Mean Corpuscular HGB Conc 34.1 GM/DL (32-36); Mean Corpuscular Volume 87.4 FL (87-102); Mean Platelet Volume 9.2 FL (9.6-12.0); Monocytes % 5.6 % (1.7-12.7); Neutrophils % 78.7 % (38.7-73.9); Platelet Count 165 T/CUMM (130-400); Red Blood Count 4.76 MC/CUMM (3.8-5.5); Red Cell Distribution Width 13.2 % (9.3-17.3); White Blood Count 7.3 T/CUMM (4-12)
[2019-06-27] MEDS ORDERED: SODIUM CHLORIDE 0.9% 1,000 ML IV STA (17:52)
[2019-06-27 18:01] LABS: Albumin 2.2 G/DL (3.4-5.0); Bilirubin,Total 0.5 MG/DL (0.2-1.0); Calcium 8.2 MG/DL (8.5-10.1); Osmolality,Calculated 280.1 MOS/KG (273-304); Total Protein 7.4 G/DL (6.4-8.3)
[2019-06-27] MEDS ORDERED: INSULIN REGULAR 100 UNIT/ML IV STA (18:24)
[2019-06-27] MEDS ORDERED: CEFTAROLINE 600 MG in SODIUM CHLORIDE 0.9% 100 ML IV STA (18:25)
[2019-06-27 18:40] LABS: Allen Test Positive
[2019-06-27 18:41] LABS: ABG Base Excess -3.7 MMOL/L (-2.5-2.5); ABG HCO3 18.5 MMOL/L (20-26); ABG Oxygen Saturation 98.4 % (95-100); ABG PCO2 25.2 MM HG (35-48); ABG PH 7.484 (7.35-7.45); ABG PO2 121.4 MM HG (80-95); ABG TCO2 19.3 MMOL/L (23-27)
[2019-06-27] MEDS ORDERED: HYDROmorphone 2 MG/1 ML VIAL IV STA (18:45)
[2019-06-27] MEDS ORDERED: ONDANSETRON 4 MG/2 ML VIAL IV STA (18:45)
[2019-06-27] MEDS ORDERED: IBUPROFEN 800 MG TABLET PO STA (18:45)
[2019-06-27 19:20] LABS: Apearance,Urine Slightly Hazy (Clear); Bacteria,Urine Occasional /HPF (Few); Bilirubin,Urine Negative (Negative); Blood, Urine Small mg/dL (Negative); Glucose,Urine (UA) >=500 mg/dL (Negative); Ketones,Urine 80 mg/dL (Negative); Mucus,Urine Occasional /LPF (Occasional); Nitrite,Urine Negative (Negative); Protein,Urine >=500 MG/DL; RBC,Urine 3 /HPF (0-4); Squamous Epithelial Cell,Urine Occasional /HPF (0-10); Urine Color Yellow (Yellow); Urine Specific Gravity 1.033 (1.001-1.035); Urine Urobilinogen < 2.0 EU/DL (0.2-1.0); WBC,Urine 9 /HPF (0-6)
[2019-06-27 19:27] LABS: Barbiturates Screen,Urine Negative (Negative); Benzodiazepines Screen,Urine Negative (Negative); Cannabinoid Screen,Urine Negative (Negative); Opiate Screen,Urine Negative (Negative); Phencyclidine Screen,Urine Negative (Negative)
[2019-06-27] MEDS ORDERED: DEXTROSE 50% 25 GM/50 ML VIAL IV PRN (21:37)
[2019-06-27] MEDS ORDERED: GLUCAGON 1 MG VIAL IM PRN (21:37)
[2019-06-27] MEDS: PANTOPRAZOLE 40 MG TABLET PO SCH (22:58)
[2019-06-27] MEDS: traZODone 50 MG TABLET PO SCH (22:58)
[2019-06-27] MEDS: GABAPENTIN 300 MG CAPSULE PO SCH (22:58)
[2019-06-27] MEDS: DOCUSATE SODIUM 100 MG CAPSULE PO SCH (22:58)
[2019-06-27] MEDS: SODIUM CHLORIDE 0.9% 1,000 ML IV SCH (22:59)
[2019-06-27] MEDS: ENOXAPARIN 40 MG/0.4 ML SYRINGE SUBCUT SCH (22:59)
[2019-06-28] MEDS: INSULIN REGULAR 100 UNIT/ML SUBCUT SCH ×5 (01:00→20:33)
[2019-06-28] MEDS: CEFTAROLINE 600 MG in SODIUM CHLORIDE 0.9% 100 ML IV SCH ×3 (01:00→23:38)
[2019-06-28] MEDS: ACETAMINOPHEN 325 MG TABLET PO PRN ×3 (04:14→20:31)
[2019-06-28] MEDS: HYDROmorphone 2 MG/1 ML VIAL IV PRN ×3 (04:15→20:33)
[2019-06-28 07:57] LABS: Basophils % 0.2 % (0.0-0.8); Eosinophils # 0.1 10*3/uL (0.0-0.87); Eosinophils % 0.8 % (0.00-10.9); Hematocrit 27.7 VOL% (35.7-47.0); Immature Granulocytes % 0.7 %; Immature Granulocytes Absolute 0.06 #; Lymphocytes # 1.2 10*3/uL (1.4-4.0); Lymphocytes % 13.7 % (21.3-54.2); Mean Corpuscular HGB Conc 32.5 GM/DL (32-36); Mean Corpuscular Volume 90.2 FL (87-102); Mean Platelet Volume 9.2 FL (9.6-12.0); Monocytes % 6.7 % (1.7-12.7); Neutrophils % 77.9 % (38.7-73.9); Platelet Count 197 T/CUMM (130-400); Red Blood Count 3.07 MC/CUMM (3.8-5.5); Red Cell Distribution Width 13.2 % (9.3-17.3)
[2019-06-28 08:18] LABS: Band Neutrophils 5 % (0-10); Lymphocytes 21 % (20-55); Segmented Neutrophils 72 % (50-85); Total Cells Counted 100
[2019-06-28 08:19] LABS: Atypical Lymphocytes Few; Platelet Estimate Normal; Polychromasia Slight
[2019-06-28 08:27] LABS: Bilirubin,Total 0.5 MG/DL (0.2-1.0); Calcium 8.8 MG/DL (8.5-10.1); Osmolality,Calculated 285.5 MOS/KG (273-304)
[2019-06-28] MEDS ORDERED: ONDANSETRON 4 MG/2 ML VIAL ONE ×2 (09:00→10:12)
[2019-06-28] MEDS ORDERED: PANTOPRAZOLE 40 MG VIAL IV SCH (09:00)
[2019-06-28] MEDS: ONDANSETRON 4 MG/2 ML VIAL IV PRN ×2 (09:06→21:17)
[2019-06-28] MEDS ORDERED: LIDOCAINE 1% 20 ML VIAL ONE (09:09)
[2019-06-28] MEDS ORDERED: BUPIVACAINE MPF 0.25% 30 ML VIAL ONE (09:09)
[2019-06-28] MEDS ORDERED: fentaNYL 100 MCG/2 ML VIAL ONE (10:11)
[2019-06-28] MEDS ORDERED: PROPOFOL 200 MG/20 ML VIAL IV ONE (10:11)
[2019-06-28] MEDS ORDERED: LIDOCAINE 2% 5 ML VIAL ONE (10:11)
[2019-06-28] MEDS ORDERED: SEVOFLURANE 1 UNIT/15 MINUTE INH ONE (10:11)
[2019-06-28] MEDS ORDERED: MIDAZOLAM 2 MG/2 ML VIAL ONE (10:12)
[2019-06-28] MEDS: DOCUSATE SODIUM 100 MG CAPSULE PO SCH ×2 (14:30→21:11)
[2019-06-28] MEDS: GABAPENTIN 300 MG CAPSULE PO SCH ×4 (14:31→20:31)
[2019-06-28] MEDS: PANTOPRAZOLE 40 MG TABLET PO SCH ×2 (14:31→20:31)
[2019-06-28] MEDS: SODIUM CHLORIDE 0.9% 1,000 ML IV SCH ×3 (14:35→21:17)
[2019-06-28] MEDS: glyBURIDE 5 MG TABLET PO SCH ×2 (16:08→16:51)
[2019-06-28] MEDS: INSULIN LISPRO 100 UNIT/ML SUBCUT SCH ×2 (16:09→19:57)
[2019-06-28] MEDS: SODIUM HYPOCHLORITE 0.25% IRRIG 473 ML BOTTLE TOP SCH (16:53)
[2019-06-28] MEDS: INSULIN GLARGINE 100 UNIT/ML SUBCUT SCH (20:32)
[2019-06-28] MEDS: traZODone 50 MG TABLET PO SCH (21:10)
[2019-06-28] MEDS: ENOXAPARIN 40 MG/0.4 ML SYRINGE SUBCUT SCH (23:39)
[2019-06-29 04:08] LABS: Alanine Aminotransferase 18 U/L (13-56); Albumin 1.8 G/DL (3.4-5.0); Alkaline Phosphatase 146 U/L (45-117); Aspartate Amino Transferase 25 U/L (0-37); Bilirubin,Total < 0.39 MG/DL (0.2-1.0); Blood Urea Nitrogen 7 MG/DL (7-18); Calcium 8.3 MG/DL (8.5-10.1); Estimated Glom Filtration Rate 145 ML/MIN; Glucose 180 MG/DL (74-106); Osmolality,Calculated 283.3 MOS/KG (273-304); Total Protein 6.5 G/DL (6.4-8.3)
[2019-06-29 04:18] LABS: Basophils % 0.2 % (0.0-0.8); Eosinophils # 0.1 10*3/uL (0.0-0.87); Eosinophils % 1.3 % (0.00-10.9); Hematocrit 25.7 VOL% (35.7-47.0); Hemoglobin 8.4 GM/DL (12.0-16.0); Immature Granulocytes % 0.6 %; Immature Granulocytes Absolute 0.04 #; Lymphocytes # 1.4 10*3/uL (1.4-4.0); Lymphocytes % 22.1 % (21.3-54.2); Mean Corpuscular HGB Conc 32.7 GM/DL (32-36); Mean Corpuscular Volume 89.5 FL (87-102); Mean Platelet Volume 9.5 FL (9.6-12.0); Monocytes % 8.4 % (1.7-12.7); Neutrophils % 67.4 % (38.7-73.9); Platelet Count 168 T/CUMM (130-400); Red Blood Count 2.87 MC/CUMM (3.8-5.5); Red Cell Distribution Width 13.1 % (9.3-17.3); White Blood Count 6.3 T/CUMM (4-12)
[2019-06-29] MEDS: ACETAMINOPHEN 325 MG TABLET PO PRN (04:35)
[2019-06-29] MEDS: HYDROmorphone 2 MG/1 ML VIAL IV PRN ×4 (04:36→21:07)
[2019-06-29] MEDS: ONDANSETRON 4 MG/2 ML VIAL IV PRN ×2 (04:37→21:06)
[2019-06-29] MEDS: INSULIN REGULAR 100 UNIT/ML SUBCUT SCH ×4 (08:00→21:16)
[2019-06-29] MEDS ORDERED: POTASSIUM CHLORIDE RIDER 20 MEQ in PREMIX 1 EACH IV PRN ×2 (08:47→08:49)
[2019-06-29] MEDS ORDERED: MAGNESIUM SULF RIDER 2 GM in PREMIX 1 EACH IV ONE (08:48)
[2019-06-29] MEDS ORDERED: POTASSIUM CHLORIDE RIDER 10 MEQ in PREMIX 1 EACH IV PRN (08:49)
[2019-06-29] MEDS: DOCUSATE SODIUM 100 MG CAPSULE PO SCH ×2 (09:00→21:06)
[2019-06-29] MEDS: glyBURIDE 5 MG TABLET PO SCH ×2 (09:00→17:03)
[2019-06-29] MEDS: GABAPENTIN 300 MG CAPSULE PO SCH ×3 (09:00→21:06)
[2019-06-29] MEDS: INSULIN LISPRO 100 UNIT/ML SUBCUT SCH ×2 (09:00→17:05)
[2019-06-29] MEDS: PANTOPRAZOLE 40 MG TABLET PO SCH ×2 (09:00→21:06)
[2019-06-29] MEDS: SODIUM CHLORIDE 0.9% 1,000 ML IV SCH ×2 (11:57→17:06)
[2019-06-29] MEDS: SODIUM HYPOCHLORITE 0.25% IRRIG 473 ML BOTTLE TOP SCH (12:20)
[2019-06-29 14:10] LABS: Hematocrit 24.4 VOL% (35.7-47.0)
[2019-06-29] MEDS: CEFTAROLINE 600 MG in SODIUM CHLORIDE 0.9% 100 ML IV SCH ×2 (17:05→23:20)
[2019-06-29 17:40] LABS: Apearance,Urine CLOUDY (Clear); Bilirubin,Urine Negative (Negative); Blood, Urine Small mg/dL (Negative); Glucose,Urine (UA) 50 mg/dL (Negative); Ketones,Urine Negative (Negative); Mucus,Urine Occasional /LPF (Occasional); Nitrite,Urine Negative (Negative); Protein,Urine 30 MG/DL; RBC,Urine 25 /HPF (0-4); Squamous Epithelial Cell,Urine Many /HPF (0-10); Urine Color Yellow (Yellow); Urine Specific Gravity 1.021 (1.001-1.035); WBC,Urine 32 /HPF (0-6)
[2019-06-29] MEDS: POTASSIUM CHLORIDE RIDER 10 MEQ in PREMIX 1 EACH IV PRN (19:07)
[2019-06-29 19:50] LABS: Basophils % 0.2 % (0.0-0.8); Eosinophils # 0.1 10*3/uL (0.0-0.87); Eosinophils % 1.6 % (0.00-10.9); Hematocrit 26.6 VOL% (35.7-47.0); Hemoglobin 8.4 GM/DL (12.0-16.0); Immature Granulocytes Absolute 0.06 #; Lymphocytes # 1.6 10*3/uL (1.4-4.0); Lymphocytes % 25.4 % (21.3-54.2); Mean Corpuscular HGB Conc 31.6 GM/DL (32-36); Mean Corpuscular Volume 92.7 FL (87-102); Mean Platelet Volume 9.1 FL (9.6-12.0); Monocytes % 6.6 % (1.7-12.7); Neutrophils % 65.2 % (38.7-73.9); Platelet Count 205 T/CUMM (130-400); Red Blood Count 2.87 MC/CUMM (3.8-5.5); Red Cell Distribution Width 13.2 % (9.3-17.3); White Blood Count 6.1 T/CUMM (4-12)
[2019-06-29 20:13] LABS: Folate 19.3 NG/ML (5.4-24.0); Vitamin B12 366 PG/ML (211-911)
[2019-06-29] MEDS ORDERED: SODIUM CHLORIDE 0.9% 1,000 ML IV PRN (20:56)
[2019-06-29 20:59] LABS: Sedimentation Rate-Westergren 130 MM/HR (0-20)
[2019-06-29] MEDS: traZODone 50 MG TABLET PO SCH (21:06)
[2019-06-29] MEDS: INSULIN GLARGINE 100 UNIT/ML SUBCUT SCH (21:06)
[2019-06-29] MEDS: metroNIDAZOLE INJ 500 MG in PREMIX 1 EACH IV SCH (21:12)
[2019-06-29] MEDS: ENOXAPARIN 40 MG/0.4 ML SYRINGE SUBCUT SCH (23:18)
[2019-06-30] MEDS: SODIUM CHLORIDE 0.9% 1,000 ML IV SCH (02:25)
[2019-06-30] MEDS: HYDROmorphone 2 MG/1 ML VIAL IV PRN ×4 (05:25→20:52)
[2019-06-30] MEDS: POTASSIUM CHLORIDE RIDER 10 MEQ in PREMIX 1 EACH IV PRN ×4 (06:17→13:17)
[2019-06-30] MEDS: ONDANSETRON 4 MG/2 ML VIAL IV PRN ×2 (06:53→13:26)
[2019-06-30] MEDS: INSULIN REGULAR 100 UNIT/ML SUBCUT SCH ×4 (08:27→20:52)
[2019-06-30] MEDS: glyBURIDE 5 MG TABLET PO SCH ×2 (08:28→16:22)
[2019-06-30] MEDS: DOCUSATE SODIUM 100 MG CAPSULE PO SCH ×2 (08:28→20:50)
[2019-06-30] MEDS: LACTOBACILLUS ACIDOPHILUS/BULGARICUS CAPLET PO SCH (08:28)
[2019-06-30] MEDS: GABAPENTIN 300 MG CAPSULE PO SCH ×3 (08:28→20:50)
[2019-06-30] MEDS: PANTOPRAZOLE 40 MG TABLET PO SCH ×2 (08:29→20:50)
[2019-06-30] MEDS: INSULIN LISPRO 100 UNIT/ML SUBCUT SCH ×2 (08:38→16:23)
[2019-06-30 10:14] LABS: Basophils % 0.2 % (0.0-0.8); Eosinophils # 0.1 10*3/uL (0.0-0.87); Eosinophils % 1.3 % (0.00-10.9); Hematocrit 26.9 VOL% (35.7-47.0); Hemoglobin 8.8 GM/DL (12.0-16.0); Immature Granulocytes % 0.5 %; Immature Granulocytes Absolute 0.03 #; Lymphocytes # 1.4 10*3/uL (1.4-4.0); Lymphocytes % 22.8 % (21.3-54.2); Mean Corpuscular HGB Conc 32.7 GM/DL (32-36); Mean Corpuscular Volume 90.6 FL (87-102); Mean Platelet Volume 9.1 FL (9.6-12.0); Monocytes % 9.7 % (1.7-12.7); Neutrophils % 65.5 % (38.7-73.9); Platelet Count 206 T/CUMM (130-400); Red Blood Count 2.97 MC/CUMM (3.8-5.5); Red Cell Distribution Width 13.2 % (9.3-17.3)
[2019-06-30 10:33] LABS: Alanine Aminotransferase 21 U/L (13-56); Albumin 1.8 G/DL (3.4-5.0); Alkaline Phosphatase 155 U/L (45-117); Aspartate Amino Transferase 20 U/L (0-37); Bilirubin,Total < 0.39 MG/DL (0.2-1.0); Blood Urea Nitrogen 5 MG/DL (7-18); Calcium 8.8 MG/DL (8.5-10.1); Estimated Glom Filtration Rate 144 ML/MIN; Glucose 208 MG/DL (74-106); Osmolality,Calculated 281.4 MOS/KG (273-304); Total Protein 6.8 G/DL (6.4-8.3)
[2019-06-30] MEDS: metroNIDAZOLE INJ 500 MG in PREMIX 1 EACH IV SCH (10:39)
[2019-06-30] MEDS: SODIUM HYPOCHLORITE 0.25% IRRIG 473 ML BOTTLE TOP SCH (11:02)
[2019-06-30] MEDS: CEFTAROLINE 600 MG in SODIUM CHLORIDE 0.9% 100 ML IV SCH (11:43)
[2019-06-30] MEDS: VANCOMYCIN INJ 1,500 MG in SODIUM CHLORIDE 0.9% 500 ML IV SCH (13:16)
[2019-06-30] MEDS ORDERED: MAGNESIUM SULF RIDER 4 GM in PREMIX 1 EACH IV PRN (18:40)
[2019-06-30] MEDS: traZODone 50 MG TABLET PO SCH (20:49)
[2019-06-30] MEDS: INSULIN GLARGINE 100 UNIT/ML SUBCUT SCH (20:51)
[2019-06-30] MEDS: cefTRIAXone 2,000 MG in SYRINGE 1 EACH IV SCH (20:51)
[2019-06-30] MEDS: MAGNESIUM SULF RIDER 2 GM in PREMIX 1 EACH IV PRN (20:57)
[2019-06-30] MEDS: ENOXAPARIN 40 MG/0.4 ML SYRINGE SUBCUT SCH (23:25)
[2019-07-01] MEDS: SODIUM CHLORIDE 0.9% 1,000 ML IV SCH ×4 (00:16→21:24)
[2019-07-01] MEDS: HYDROmorphone 2 MG/1 ML VIAL IV PRN ×6 (01:05→21:16)
[2019-07-01] MEDS: VANCOMYCIN INJ 1,500 MG in SODIUM CHLORIDE 0.9% 500 ML IV SCH ×2 (01:05→14:12)
[2019-07-01 05:15] LABS: Basophils % 0.2 % (0.0-0.8); Eosinophils # 0.1 10*3/uL (0.0-0.87); Eosinophils % 1.5 % (0.00-10.9); Hematocrit 29.2 VOL% (35.7-47.0); Hemoglobin 9.3 GM/DL (12.0-16.0); Immature Granulocytes % 0.9 %; Immature Granulocytes Absolute 0.05 #; Lymphocytes # 1.8 10*3/uL (1.4-4.0); Lymphocytes % 32.1 % (21.3-54.2); Mean Corpuscular HGB Conc 31.8 GM/DL (32-36); Mean Corpuscular Volume 92.4 FL (87-102); Mean Platelet Volume 9.1 FL (9.6-12.0); Monocytes % 9.1 % (1.7-12.7); Neutrophils % 56.2 % (38.7-73.9); Platelet Count 215 T/CUMM (130-400); Red Blood Count 3.16 MC/CUMM (3.8-5.5); Red Cell Distribution Width 13.7 % (9.3-17.3); White Blood Count 5.5 T/CUMM (4-12)
[2019-07-01 05:53] LABS: Band Neutrophils 1 % (0-10); Lymphocytes 34 % (20-55); Segmented Neutrophils 56 % (50-85)
[2019-07-01 05:54] LABS: Albumin 1.6 G/DL (3.4-5.0); Bilirubin,Total 0.7 MG/DL (0.2-1.0); Calcium 8.4 MG/DL (8.5-10.1); Osmolality,Calculated 284.3 MOS/KG (273-304); Platelet Estimate Normal; Total Cells Counted 100; Total Protein 6.5 G/DL (6.4-8.3)
[2019-07-01] MEDS: ONDANSETRON 4 MG/2 ML VIAL IV PRN ×2 (07:30→13:20)
[2019-07-01] MEDS: INSULIN LISPRO 100 UNIT/ML SUBCUT SCH ×3 (08:08→16:49)
[2019-07-01] MEDS: INSULIN REGULAR 100 UNIT/ML SUBCUT SCH ×4 (08:34→21:28)
[2019-07-01 09:26] LABS: Hemoglobin A1 (Alkaline) 97.7 % (96.5-98.5); Hemoglobin A2 (Alkaline) 2.3 % (1.5-3.5)
[2019-07-01] MEDS ORDERED: LIDOCAINE 1% 20 ML VIAL ONE (10:42)
[2019-07-01] MEDS ORDERED: BUPIVACAINE MPF 0.25% 30 ML VIAL ONE (10:42)
[2019-07-01] MEDS ORDERED: TRIAMCINOLONE ACETONIDE 40 MG/1 ML VIAL ONE (10:43)
[2019-07-01] MEDS ORDERED: ONDANSETRON 4 MG/2 ML VIAL ONE (11:05)
[2019-07-01] MEDS ORDERED: HYDROmorphone 2 MG/1 ML VIAL ONE (12:01)
[2019-07-01] MEDS ORDERED: LIDOCAINE 2% 5 ML VIAL ONE (12:02)
[2019-07-01] MEDS ORDERED: KETAMINE 500 MG/10 ML VIAL ONE (12:02)
[2019-07-01] MEDS ORDERED: PROPOFOL 200 MG/20 ML VIAL IV ONE (12:02)
[2019-07-01] MEDS ORDERED: MIDAZOLAM 2 MG/2 ML VIAL ONE (12:02)
[2019-07-01] MEDS ORDERED: fentaNYL 100 MCG/2 ML VIAL ONE (12:03)
[2019-07-01] MEDS ORDERED: ONDANSETRON 4 MG/2 ML VIAL IV PRN (12:06)
[2019-07-01] MEDS ORDERED: DEXTROSE 50% 25 GM/50 ML VIAL IV PRN ×2 (12:48→12:49)
[2019-07-01] MEDS ORDERED: GLUCAGON 1 MG VIAL IM PRN ×2 (12:48→12:49)
[2019-07-01] MEDS: SODIUM HYPOCHLORITE 0.25% IRRIG 473 ML BOTTLE TOP SCH (13:10)
[2019-07-01] MEDS: PANTOPRAZOLE 40 MG TABLET PO SCH ×2 (13:19→21:17)
[2019-07-01] MEDS: LACTOBACILLUS ACIDOPHILUS/BULGARICUS CAPLET PO SCH (13:19)
[2019-07-01] MEDS: glyBURIDE 5 MG TABLET PO SCH ×2 (13:19→16:48)
[2019-07-01] MEDS: GABAPENTIN 300 MG CAPSULE PO SCH ×3 (13:20→21:17)
[2019-07-01] MEDS: DOCUSATE SODIUM 100 MG CAPSULE PO SCH ×2 (13:20→21:17)
[2019-07-01] MEDS: POTASSIUM CHLORIDE RIDER 10 MEQ in PREMIX 1 EACH IV PRN (18:25)
[2019-07-01] MEDS: cefTRIAXone 2,000 MG in SYRINGE 1 EACH IV SCH ×2 (21:17→21:22)
[2019-07-01] MEDS: traZODone 50 MG TABLET PO SCH (21:17)
[2019-07-01] MEDS: INSULIN GLARGINE 100 UNIT/ML SUBCUT SCH (21:27)
[2019-07-01] MEDS: ENOXAPARIN 40 MG/0.4 ML SYRINGE SUBCUT SCH (22:32)
[2019-07-01] MEDS: ACETAMINOPHEN 325 MG TABLET PO PRN (22:33)
[2019-07-02] MEDS: VANCOMYCIN INJ 1,500 MG in SODIUM CHLORIDE 0.9% 500 ML IV SCH (02:58)
[2019-07-02] MEDS: HYDROmorphone 2 MG/1 ML VIAL IV PRN ×5 (03:05→21:06)
[2019-07-02 05:02] LABS: Basophils % 0.2 % (0.0-0.8); Eosinophils # 0.1 10*3/uL (0.0-0.87); Eosinophils % 1.4 % (0.00-10.9); Hematocrit 29.1 VOL% (35.7-47.0); Hemoglobin 9.2 GM/DL (12.0-16.0); Lymphocytes # 1.3 10*3/uL (1.4-4.0); Lymphocytes % 25.6 % (21.3-54.2); Mean Corpuscular HGB Conc 31.6 GM/DL (32-36); Monocytes % 8.8 % (1.7-12.7); Platelet Count 223 T/CUMM (130-400); Red Blood Count 3.13 MC/CUMM (3.8-5.5); Red Cell Distribution Width 13.6 % (9.3-17.3); White Blood Count 5.1 T/CUMM (4-12)
[2019-07-02 05:33] LABS: Albumin 1.9 G/DL (3.4-5.0); Bilirubin,Total 0.5 MG/DL (0.2-1.0); Calcium 8.5 MG/DL (8.5-10.1); Total Protein 6.7 G/DL (6.4-8.3)
[2019-07-02 05:48] LABS: Atypical Lymphocytes Few; Band Neutrophils 2 % (0-10); Eosinophils 2 % (0-10); Hypochromasia 1+; Lymphocytes 29 % (20-55); Metamyelocytes 2 %; Microcytosis Slight; Segmented Neutrophils 55 % (50-85); Total Cells Counted 100
[2019-07-02 05:49] LABS: Platelet Estimate Normal
[2019-07-02] MEDS: SODIUM CHLORIDE 0.9% 1,000 ML IV SCH ×3 (05:55→22:47)
[2019-07-02] MEDS: INSULIN REGULAR 100 UNIT/ML SUBCUT SCH ×4 (07:08→21:06)
[2019-07-02] MEDS: ONDANSETRON 4 MG/2 ML VIAL IV PRN ×3 (07:54→21:06)
[2019-07-02] MEDS: LACTOBACILLUS ACIDOPHILUS/BULGARICUS CAPLET PO SCH (08:38)
[2019-07-02] MEDS: glyBURIDE 5 MG TABLET PO SCH ×2 (08:38→16:25)
[2019-07-02] MEDS: SODIUM HYPOCHLORITE 0.25% IRRIG 473 ML BOTTLE TOP SCH (08:39)
[2019-07-02] MEDS: INSULIN LISPRO 100 UNIT/ML SUBCUT SCH ×2 (08:39→16:58)
[2019-07-02] MEDS: DOCUSATE SODIUM 100 MG CAPSULE PO SCH ×2 (08:39→21:05)
[2019-07-02] MEDS: PANTOPRAZOLE 40 MG TABLET PO SCH ×2 (08:39→21:06)
[2019-07-02] MEDS: GABAPENTIN 300 MG CAPSULE PO SCH ×3 (08:39→21:05)
[2019-07-02] MEDS: MAGNESIUM SULF RIDER 2 GM in PREMIX 1 EACH IV PRN ×2 (08:40→14:25)
[2019-07-02] MEDS: cefTRIAXone 2,000 MG in SYRINGE 1 EACH IV SCH (12:03)
[2019-07-02] MEDS: POTASSIUM CHLORIDE RIDER 10 MEQ in PREMIX 1 EACH IV PRN ×2 (12:13→13:15)
[2019-07-02] MEDS ORDERED: INFLUENZA VIRUS VACCINE 0.5 ML SYRINGE IM ONE (12:26)
[2019-07-02] MEDS ORDERED: VANCOMYCIN INJ 2,000 MG in SODIUM CHLORIDE 0.9% 500 ML IV ONE (14:00)
[2019-07-02] MEDS: FLUCONAZOLE 150 MG TABLET PO SCH (16:25)
[2019-07-02] MEDS: PIPERACILLIN/TAZOBACTAM 3,375 MG in SODIUM CHLORIDE 0.9% 100 ML IV SCH (19:03)
[2019-07-02] MEDS: traZODone 50 MG TABLET PO SCH (21:05)
[2019-07-02] MEDS: INSULIN GLARGINE 100 UNIT/ML SUBCUT SCH (21:07)
[2019-07-02] MEDS: ENOXAPARIN 40 MG/0.4 ML SYRINGE SUBCUT SCH (23:05)
[2019-07-03] MEDS: HYDROmorphone 2 MG/1 ML VIAL IV PRN ×5 (01:11→21:09)
[2019-07-03] MEDS: VANCOMYCIN INJ 1,500 MG in SODIUM CHLORIDE 0.9% 500 ML IV SCH ×2 (01:11→14:12)
[2019-07-03 04:38] LABS: Basophils % 0.2 % (0.0-0.8); Eosinophils # 0.1 10*3/uL (0.0-0.87); Eosinophils % 1.3 % (0.00-10.9); Hemoglobin 8.4 GM/DL (12.0-16.0); Immature Granulocytes % 3.1 %; Immature Granulocytes Absolute 0.14 #; Lymphocytes # 1.5 10*3/uL (1.4-4.0); Mean Corpuscular HGB Conc 31.1 GM/DL (32-36); Mean Corpuscular Volume 93.1 FL (87-102); Mean Platelet Volume 9.2 FL (9.6-12.0); Monocytes % 8.3 % (1.7-12.7); Neutrophils % 54.1 % (38.7-73.9); Platelet Count 248 T/CUMM (130-400); Red Cell Distribution Width 13.5 % (9.3-17.3); White Blood Count 4.5 T/CUMM (4-12)
[2019-07-03] MEDS: PIPERACILLIN/TAZOBACTAM 3,375 MG in SODIUM CHLORIDE 0.9% 100 ML IV SCH ×2 (04:50→10:34)
[2019-07-03 05:04] LABS: Alanine Aminotransferase 19 U/L (13-56); Albumin 1.6 G/DL (3.4-5.0); Alkaline Phosphatase 193 U/L (45-117); Aspartate Amino Transferase 12 U/L (0-37); Bilirubin,Total < 0.39 MG/DL (0.2-1.0); Blood Urea Nitrogen 3 MG/DL (7-18); Calcium 7.7 MG/DL (8.5-10.1); Estimated Glom Filtration Rate 144 ML/MIN; Glucose 297 MG/DL (74-106); Osmolality,Calculated 284.5 MOS/KG (273-304); Total Protein 6.1 G/DL (6.4-8.3)
[2019-07-03] MEDS: SODIUM CHLORIDE 0.9% 1,000 ML IV SCH (06:09)
[2019-07-03] MEDS: LACTOBACILLUS ACIDOPHILUS/BULGARICUS CAPLET PO SCH (09:40)
[2019-07-03] MEDS: DOCUSATE SODIUM 100 MG CAPSULE PO SCH ×2 (09:40→21:14)
[2019-07-03] MEDS: glyBURIDE 5 MG TABLET PO SCH ×2 (09:40→17:45)
[2019-07-03] MEDS: PANTOPRAZOLE 40 MG TABLET PO SCH ×2 (09:41→21:19)
[2019-07-03] MEDS: GABAPENTIN 300 MG CAPSULE PO SCH ×3 (09:41→21:14)
[2019-07-03] MEDS: SODIUM HYPOCHLORITE 0.25% IRRIG 473 ML BOTTLE TOP SCH (09:41)
[2019-07-03] MEDS: INSULIN REGULAR 100 UNIT/ML SUBCUT SCH ×4 (09:42→21:22)
[2019-07-03] MEDS: INSULIN LISPRO 100 UNIT/ML SUBCUT SCH ×2 (09:50→17:45)
[2019-07-03] MEDS: FLUCONAZOLE 150 MG TABLET PO SCH (14:13)
[2019-07-03] MEDS: COLLAGENASE OINT 30 GM TUBE TOP SCH (17:45)
[2019-07-03] MEDS: traZODone 50 MG TABLET PO SCH (21:19)
[2019-07-03] MEDS: INSULIN GLARGINE 100 UNIT/ML SUBCUT SCH (22:36)
[2019-07-04] MEDS: ENOXAPARIN 40 MG/0.4 ML SYRINGE SUBCUT SCH ×2 (00:28→23:52)
[2019-07-04] MEDS: HYDROmorphone 2 MG/1 ML VIAL IV PRN ×5 (02:59→21:51)
[2019-07-04] MEDS: SODIUM CHLORIDE 0.9% 1,000 ML IV SCH ×5 (03:42→23:54)
[2019-07-04] MEDS: VANCOMYCIN INJ 1,500 MG in SODIUM CHLORIDE 0.9% 500 ML IV SCH ×2 (03:46→13:23)
[2019-07-04 05:08] LABS: Eosinophils % 0.9 % (0.00-10.9); Hematocrit 25.8 VOL% (35.7-47.0); Hemoglobin 8.4 GM/DL (12.0-16.0); Immature Granulocytes % 3.4 %; Immature Granulocytes Absolute 0.15 #; Lymphocytes # 1.5 10*3/uL (1.4-4.0); Lymphocytes % 33.2 % (21.3-54.2); Mean Corpuscular HGB Conc 32.6 GM/DL (32-36); Mean Corpuscular Volume 91.5 FL (87-102); Mean Platelet Volume 8.9 FL (9.6-12.0); Monocytes % 6.3 % (1.7-12.7); Neutrophils % 56.2 % (38.7-73.9); Platelet Count 267 T/CUMM (130-400); Red Blood Count 2.82 MC/CUMM (3.8-5.5); Red Cell Distribution Width 13.5 % (9.3-17.3); White Blood Count 4.5 T/CUMM (4-12)
[2019-07-04 05:40] LABS: Alanine Aminotransferase 11 U/L (13-56); Albumin 1.7 G/DL (3.4-5.0); Alkaline Phosphatase 148 U/L (45-117); Aspartate Amino Transferase 9 U/L (0-37); Bilirubin,Total < 0.39 MG/DL (0.2-1.0); Blood Urea Nitrogen 6 MG/DL (7-18); Calcium 8.6 MG/DL (8.5-10.1); Estimated Glom Filtration Rate 165 ML/MIN; Glucose 133 MG/DL (74-106); Osmolality,Calculated 285.8 MOS/KG (273-304)
[2019-07-04] MEDS: INSULIN LISPRO 100 UNIT/ML SUBCUT SCH ×2 (08:00→17:46)
[2019-07-04] MEDS: DOCUSATE SODIUM 100 MG CAPSULE PO SCH ×2 (08:43→21:56)
[2019-07-04] MEDS: LACTOBACILLUS ACIDOPHILUS/BULGARICUS CAPLET PO SCH (08:44)
[2019-07-04] MEDS: PANTOPRAZOLE 40 MG TABLET PO SCH ×2 (08:44→21:51)
[2019-07-04] MEDS: GABAPENTIN 300 MG CAPSULE PO SCH ×3 (08:44→21:51)
[2019-07-04] MEDS: glyBURIDE 5 MG TABLET PO SCH ×2 (08:44→17:45)
[2019-07-04] MEDS: COLLAGENASE OINT 30 GM TUBE TOP SCH (08:47)
[2019-07-04] MEDS: SODIUM HYPOCHLORITE 0.25% IRRIG 473 ML BOTTLE TOP SCH (08:47)
[2019-07-04] MEDS: INSULIN REGULAR 100 UNIT/ML SUBCUT SCH ×4 (08:55→22:03)
[2019-07-04] MEDS: ACETAMINOPHEN 325 MG TABLET PO PRN (11:49)
[2019-07-04] MEDS: FLUCONAZOLE 150 MG TABLET PO SCH (13:26)
[2019-07-04] MEDS: traZODone 50 MG TABLET PO SCH (21:51)
[2019-07-04] MEDS: INSULIN GLARGINE 100 UNIT/ML SUBCUT SCH (21:51)
[2019-07-05] MEDS: HYDROmorphone 2 MG/1 ML VIAL IV PRN ×5 (02:27→21:29)
[2019-07-05] MEDS: VANCOMYCIN INJ 1,500 MG in SODIUM CHLORIDE 0.9% 500 ML IV SCH ×2 (02:29→16:07)
[2019-07-05] MEDS: LACTOBACILLUS ACIDOPHILUS/BULGARICUS CAPLET PO SCH (10:13)
[2019-07-05] MEDS: glyBURIDE 5 MG TABLET PO SCH ×2 (10:13→17:07)
[2019-07-05] MEDS: PANTOPRAZOLE 40 MG TABLET PO SCH ×2 (10:14→21:28)
[2019-07-05] MEDS: INSULIN LISPRO 100 UNIT/ML SUBCUT SCH ×2 (10:14→17:07)
[2019-07-05] MEDS: INSULIN REGULAR 100 UNIT/ML SUBCUT SCH ×4 (10:14→21:28)
[2019-07-05] MEDS: GABAPENTIN 300 MG CAPSULE PO SCH ×3 (10:14→21:28)
[2019-07-05] MEDS: SODIUM HYPOCHLORITE 0.25% IRRIG 473 ML BOTTLE TOP SCH (10:15)
[2019-07-05] MEDS: ONDANSETRON 4 MG/2 ML VIAL IV PRN (10:15)
[2019-07-05] MEDS: COLLAGENASE OINT 30 GM TUBE TOP SCH (10:15)
[2019-07-05] MEDS: DOCUSATE SODIUM 100 MG CAPSULE PO SCH ×2 (10:15→20:52)
[2019-07-05] MEDS: LEVOFLOXACIN 500 MG TABLET PO SCH (12:48)
[2019-07-05] MEDS: SODIUM CHLORIDE 0.9% 1,000 ML IV SCH ×3 (12:48→21:29)
[2019-07-05] MEDS: traZODone 50 MG TABLET PO SCH (21:28)
[2019-07-05] MEDS: INSULIN GLARGINE 100 UNIT/ML SUBCUT SCH (21:28)
[2019-07-05] MEDS: ENOXAPARIN 40 MG/0.4 ML SYRINGE SUBCUT SCH (21:29)
[2019-07-06] MEDS: VANCOMYCIN INJ 1,500 MG in SODIUM CHLORIDE 0.9% 500 ML IV SCH ×2 (02:40→14:42)
[2019-07-06] MEDS: LACTOBACILLUS ACIDOPHILUS/BULGARICUS CAPLET PO SCH ×2 (07:57→10:21)
[2019-07-06] MEDS: LEVOFLOXACIN 500 MG TABLET PO SCH ×2 (07:57→10:22)
[2019-07-06] MEDS: glyBURIDE 5 MG TABLET PO SCH ×2 (07:57→17:48)
[2019-07-06] MEDS: PANTOPRAZOLE 40 MG TABLET PO SCH ×3 (07:58→20:50)
[2019-07-06] MEDS: GABAPENTIN 300 MG CAPSULE PO SCH ×4 (07:58→20:50)
[2019-07-06] MEDS: HYDROmorphone 2 MG/1 ML VIAL IV PRN ×4 (08:38→22:45)
[2019-07-06] MEDS: INSULIN REGULAR 100 UNIT/ML SUBCUT SCH ×4 (08:39→20:45)
[2019-07-06] MEDS: INSULIN LISPRO 100 UNIT/ML SUBCUT SCH ×2 (08:39→17:49)
[2019-07-06] MEDS: SODIUM CHLORIDE 0.9% 1,000 ML IV SCH ×2 (09:30→14:10)
[2019-07-06] MEDS: DOCUSATE SODIUM 100 MG CAPSULE PO SCH ×2 (10:22→20:50)
[2019-07-06] MEDS: SODIUM HYPOCHLORITE 0.25% IRRIG 473 ML BOTTLE TOP SCH (11:56)
[2019-07-06] MEDS: COLLAGENASE OINT 30 GM TUBE TOP SCH (14:10)
[2019-07-06] MEDS ORDERED: MAGNESIUM SULF RIDER 2 GM in PREMIX 1 EACH IV ONE (17:02)
[2019-07-06] MEDS: traZODone 50 MG TABLET PO SCH (20:50)
[2019-07-06] MEDS: INSULIN GLARGINE 100 UNIT/ML SUBCUT SCH (21:48)
[2019-07-06] MEDS: ENOXAPARIN 40 MG/0.4 ML SYRINGE SUBCUT SCH (22:49)
[2019-07-07] MEDS: VANCOMYCIN INJ 1,500 MG in SODIUM CHLORIDE 0.9% 500 ML IV SCH ×2 (02:37→16:40)
[2019-07-07] MEDS: SODIUM CHLORIDE 0.9% 1,000 ML IV SCH ×4 (02:38→21:43)
[2019-07-07] MEDS: HYDROmorphone 2 MG/1 ML VIAL IV PRN ×5 (02:41→22:09)
[2019-07-07 05:59] LABS: Basophils % 0.2 % (0.0-0.8); Eosinophils % 0.3 % (0.00-10.9); Immature Granulocytes % 3.4 %; Lymphocytes % 32.9 % (21.3-54.2); Mean Corpuscular Volume 93.5 FL (87-102); Mean Platelet Volume 8.4 FL (9.6-12.0); Monocytes % 6.4 % (1.7-12.7); Neutrophils % 56.8 % (38.7-73.9); Platelet Count 296 T/CUMM (130-400); Red Cell Distribution Width 13.8 % (9.3-17.3)
[2019-07-07 06:19] LABS: Bilirubin,Total 0.4 MG/DL (0.2-1.0); Calcium 8.2 MG/DL (8.5-10.1); Osmolality,Calculated 286.8 MOS/KG (273-304); Total Protein 6.1 G/DL (6.4-8.3)
[2019-07-07] MEDS: INSULIN REGULAR 100 UNIT/ML SUBCUT SCH ×4 (07:56→20:38)
[2019-07-07] MEDS: LACTOBACILLUS ACIDOPHILUS/BULGARICUS CAPLET PO SCH (09:17)
[2019-07-07] MEDS: GABAPENTIN 300 MG CAPSULE PO SCH ×3 (09:17→20:37)
[2019-07-07] MEDS: PANTOPRAZOLE 40 MG TABLET PO SCH ×2 (09:17→20:37)
[2019-07-07] MEDS: DOCUSATE SODIUM 100 MG CAPSULE PO SCH ×2 (09:18→20:37)
[2019-07-07] MEDS: LEVOFLOXACIN 500 MG TABLET PO SCH (09:18)
[2019-07-07] MEDS: glyBURIDE 5 MG TABLET PO SCH ×2 (09:18→16:27)
[2019-07-07] MEDS: INSULIN LISPRO 100 UNIT/ML SUBCUT SCH ×2 (09:19→16:28)
[2019-07-07] MEDS: ONDANSETRON 4 MG/2 ML VIAL IV PRN (09:46)
[2019-07-07] MEDS: SODIUM HYPOCHLORITE 0.25% IRRIG 473 ML BOTTLE TOP SCH (16:40)
[2019-07-07] MEDS ORDERED: MAGNESIUM SULF RIDER 4 GM in PREMIX 1 EACH IV PRN (17:03)
[2019-07-07] MEDS: COLLAGENASE OINT 30 GM TUBE TOP SCH (17:18)
[2019-07-07] MEDS: traZODone 50 MG TABLET PO SCH (20:37)
[2019-07-07] MEDS: INSULIN GLARGINE 100 UNIT/ML SUBCUT SCH (20:37)
[2019-07-07] MEDS: ACETAMINOPHEN 325 MG TABLET PO PRN (20:37)
[2019-07-07] MEDS: ENOXAPARIN 40 MG/0.4 ML SYRINGE SUBCUT SCH (22:06)
[2019-07-08] MEDS: VANCOMYCIN INJ 1,500 MG in SODIUM CHLORIDE 0.9% 500 ML IV SCH ×2 (01:33→15:09)
[2019-07-08] MEDS: SODIUM CHLORIDE 0.9% 1,000 ML IV SCH ×2 (03:38→14:56)
[2019-07-08] MEDS: HYDROmorphone 2 MG/1 ML VIAL IV PRN ×5 (03:47→21:28)
[2019-07-08 05:00] LABS: Basophils % 0.4 % (0.0-0.8); Eosinophils % 0.4 % (0.00-10.9); Hematocrit 28.7 VOL% (35.7-47.0); Immature Granulocytes % 2.5 %; Immature Granulocytes Absolute 0.14 #; Lymphocytes # 1.8 10*3/uL (1.4-4.0); Lymphocytes % 31.3 % (21.3-54.2); Mean Corpuscular HGB Conc 31.4 GM/DL (32-36); Mean Corpuscular Volume 92.6 FL (87-102); Mean Platelet Volume 8.3 FL (9.6-12.0); Monocytes % 4.8 % (1.7-12.7); Neutrophils % 60.6 % (38.7-73.9); Platelet Count 235 T/CUMM (130-400); White Blood Count 5.6 T/CUMM (4-12)
[2019-07-08 05:39] LABS: Albumin 1.9 G/DL (3.4-5.0); Bilirubin,Total 0.4 MG/DL (0.2-1.0); Calcium 8.3 MG/DL (8.5-10.1); Osmolality,Calculated 278.3 MOS/KG (273-304); Total Protein 6.1 G/DL (6.4-8.3)
[2019-07-08] MEDS: MAGNESIUM SULF RIDER 2 GM in PREMIX 1 EACH IV PRN (05:46)
[2019-07-08] MEDS: INSULIN REGULAR 100 UNIT/ML SUBCUT SCH ×4 (07:31→21:30)
[2019-07-08] MEDS: LEVOFLOXACIN 500 MG TABLET PO SCH (08:00)
[2019-07-08] MEDS: glyBURIDE 5 MG TABLET PO SCH ×2 (08:00→16:40)
[2019-07-08] MEDS: DOCUSATE SODIUM 100 MG CAPSULE PO SCH ×2 (08:01→21:23)
[2019-07-08] MEDS: GABAPENTIN 300 MG CAPSULE PO SCH ×3 (08:01→21:28)
[2019-07-08] MEDS: PANTOPRAZOLE 40 MG TABLET PO SCH ×2 (08:01→21:28)
[2019-07-08] MEDS: LACTOBACILLUS ACIDOPHILUS/BULGARICUS CAPLET PO SCH (08:01)
[2019-07-08] MEDS: SODIUM HYPOCHLORITE 0.25% IRRIG 473 ML BOTTLE TOP SCH (08:02)
[2019-07-08] MEDS: COLLAGENASE OINT 30 GM TUBE TOP SCH (08:02)
[2019-07-08] MEDS: INSULIN LISPRO 100 UNIT/ML SUBCUT SCH ×2 (08:09→16:42)
[2019-07-08] MEDS ORDERED: ALBUTEROL/IPRATROPIUM 3 ML NEB RESP TX PRN (09:38)
[2019-07-08] MEDS ORDERED: FUROSEMIDE 20 MG/2 ML VIAL IV ONE (09:38)
[2019-07-08] MEDS: ONDANSETRON 4 MG/2 ML VIAL IV PRN ×2 (09:48→17:10)
[2019-07-08] MEDS ORDERED: PROMETHAZINE INJ 12.5 MG in SODIUM CHLORIDE 0.9% 50 ML IV PRN (11:31)
[2019-07-08] MEDS: LEVOFLOXACIN INJ 500 MG in PREMIX 1 EACH IV SCH (13:01)
[2019-07-08 16:30] LABS: HIV Antigen/Antibody Result Nonreactive (Nonreactive); Hepatitis B Surface Ag Quant 0.14 Index; Hepatitis B Surface Ag Result Negative (Negative); Hepatitis C Virus Ab Quant 0.02 Index; Hepatitis C Virus Ab Result Negative (Negative)
[2019-07-08 20:15] LABS: Apearance,Urine CLEAR (Clear); Bilirubin,Urine Negative (Negative); Blood, Urine Negative (Negative); Glucose,Urine (UA) Negative (Negative); Ketones,Urine Negative (Negative); Mucus,Urine Occasional /LPF (Occasional); Nitrite,Urine Negative (Negative); Protein,Urine Negative; RBC,Urine <1 /HPF (0-4); Squamous Epithelial Cell,Urine Occasional /HPF (0-10); Urine Color Colorless (Yellow); Urine Specific Gravity 1.008 (1.001-1.035); Urine Urobilinogen < 2.0 EU/DL (0.2-1.0); WBC,Urine <1 /HPF (0-6)
[2019-07-08] MEDS: traZODone 50 MG TABLET PO SCH (21:23)
[2019-07-08] MEDS: FUROSEMIDE 20 MG/2 ML VIAL IV SCH (21:24)
[2019-07-08] MEDS: ENOXAPARIN 40 MG/0.4 ML SYRINGE SUBCUT SCH (21:30)
[2019-07-09] MEDS: HYDROmorphone 2 MG/1 ML VIAL IV PRN ×4 (01:52→15:58)
[2019-07-09] MEDS: VANCOMYCIN INJ 1,500 MG in SODIUM CHLORIDE 0.9% 500 ML IV SCH ×2 (01:53→14:39)
[2019-07-09 05:40] LABS: Bilirubin,Total 0.6 MG/DL (0.2-1.0); Calcium 8.7 MG/DL (8.5-10.1); Osmolality,Calculated 282.1 MOS/KG (273-304); Total Protein 6.1 G/DL (6.4-8.3)
[2019-07-09 05:42] LABS: Basophils % 0.3 % (0.0-0.8); Eosinophils % 0.3 % (0.00-10.9); Hematocrit 30.2 VOL% (35.7-47.0); Hemoglobin 9.7 GM/DL (12.0-16.0); Immature Granulocytes % 1.7 %; Immature Granulocytes Absolute 0.11 #; Mean Corpuscular HGB Conc 32.1 GM/DL (32-36); Mean Corpuscular Volume 92.1 FL (87-102); Mean Platelet Volume 8.6 FL (9.6-12.0); Monocytes % 4.7 % (1.7-12.7); Platelet Count 226 T/CUMM (130-400); Red Blood Count 3.28 MC/CUMM (3.8-5.5); Red Cell Distribution Width 13.9 % (9.3-17.3); White Blood Count 6.3 T/CUMM (4-12)
[2019-07-09] MEDS: SODIUM CHLORIDE 0.9% 1,000 ML IV SCH (06:01)
[2019-07-09] MEDS: ONDANSETRON 4 MG/2 ML VIAL IV PRN (07:53)
[2019-07-09] MEDS: FUROSEMIDE 20 MG/2 ML VIAL IV SCH (08:00)
[2019-07-09] MEDS: LACTOBACILLUS ACIDOPHILUS/BULGARICUS CAPLET PO SCH (08:01)
[2019-07-09] MEDS: glyBURIDE 5 MG TABLET PO SCH ×2 (08:01→15:59)
[2019-07-09] MEDS: DOCUSATE SODIUM 100 MG CAPSULE PO SCH (08:08)
[2019-07-09] MEDS: SODIUM HYPOCHLORITE 0.25% IRRIG 473 ML BOTTLE TOP SCH (08:09)
[2019-07-09] MEDS: GABAPENTIN 300 MG CAPSULE PO SCH ×2 (08:09→16:00)
[2019-07-09] MEDS: COLLAGENASE OINT 30 GM TUBE TOP SCH (08:10)
[2019-07-09] MEDS: INSULIN LISPRO 100 UNIT/ML SUBCUT SCH (08:15)
[2019-07-09] MEDS: INSULIN REGULAR 100 UNIT/ML SUBCUT SCH ×2 (10:38→11:30)
[2019-07-09] MEDS: PANTOPRAZOLE 40 MG TABLET PO SCH (10:39)
[2019-07-09] MEDS ORDERED: DEXTROSE 10% 250 ML BAG IV PRN (11:25)
[2019-07-09] MEDS: LEVOFLOXACIN INJ 500 MG in PREMIX 1 EACH IV SCH (11:29)
[2019-07-09 11:47] VITALS: BP 130/76
== END 2019-07-09 17:48 | disposition hospice, home (50) | DRG 420 ==
LOC: EDBD → EDUNIT# → N.ED 17:19 → N.EDINP 19:37 → N.TELEN 20:31 → N.3E 06-29 08:53
PROVIDERS: ADMIT Family Medicine; ATTEND Family Medicine

== ENCOUNTER 2019-08-08 16:03 | Inpatient (IN) ==
[2019-08-08 16:49] LABS: Basophils % 0.2 % (0.0-0.8); Eosinophils # 0.1 10*3/uL (0.0-0.87); Eosinophils % 0.6 % (0.00-10.9); Hematocrit 33.9 VOL% (35.7-47.0); Hemoglobin 10.9 GM/DL (12.0-16.0); Immature Granulocytes % 0.7 %; Immature Granulocytes Absolute 0.08 #; Lymphocytes # 1.6 10*3/uL (1.4-4.0); Lymphocytes % 14.5 % (21.3-54.2); Mean Corpuscular HGB Conc 32.2 GM/DL (32-36); Mean Corpuscular Volume 89.4 FL (87-102); Mean Platelet Volume 8.8 FL (9.6-12.0); Monocytes % 5.3 % (1.7-12.7); Neutrophils % 78.7 % (38.7-73.9); Platelet Count 307 T/CUMM (130-400); Red Blood Count 3.79 MC/CUMM (3.8-5.5); Red Cell Distribution Width 13.7 % (9.3-17.3); White Blood Count 10.9 T/CUMM (4-12)
[2019-08-08 17:09] LABS: Alanine Aminotransferase 19 U/L (13-56); Albumin 2.3 G/DL (3.4-5.0); Alkaline Phosphatase 162 U/L (45-117); Aspartate Amino Transferase 15 U/L (0-37); Bilirubin,Total < 0.39 MG/DL (0.2-1.0); Blood Urea Nitrogen 6 MG/DL (7-18); Calcium 9.1 MG/DL (8.5-10.1); Estimated Glom Filtration Rate 81 ML/MIN; Osmolality,Calculated 286.8 MOS/KG (273-304); Total Protein 8.2 G/DL (6.4-8.3)
[2019-08-08 17:16] LABS: Glucose 629 MG/DL (74-106)
[2019-08-08 17:22] LABS: Band Neutrophils 3 % (0-10); Eosinophils 2 % (0-10); Lymphocytes 11 % (20-55); Platelet Estimate Normal; Segmented Neutrophils 82 % (50-85); Total Cells Counted 100
[2019-08-08] MEDS ORDERED: SODIUM CHLORIDE 0.9% 1,000 ML IV STA (18:50)
[2019-08-08] MEDS ORDERED: INSULIN REGULAR 100 UNIT/ML IV STA (18:50)
[2019-08-08] MEDS ORDERED: MORPHINE 4 MG/1 ML VIAL IV STA (18:51)
[2019-08-08] MEDS ORDERED: VANCOMYCIN INJ 1,000 MG in SODIUM CHLORIDE 0.9% 250 ML IV STA (18:51)
[2019-08-08] MEDS ORDERED: ONDANSETRON 4 MG/2 ML VIAL IV ONE (18:51)
[2019-08-08 19:17] LABS: ABG Base Excess 2.1 MMOL/L (-2.5-2.5); ABG HCO3 26.2 MMOL/L (20-26); ABG Oxygen Saturation 95.6 % (95-100); ABG PCO2 31.1 MM HG (35-48); ABG PH 7.507 (7.35-7.45); ABG PO2 69.3 MM HG (80-95); ABG TCO2 22.1 MMOL/L (23-27); Allen Test Positive; Pt O2 Delivery Device Room Air
[2019-08-08] MEDS ORDERED: ONDANSETRON 4 MG/2 ML VIAL IV PRN (20:06)
[2019-08-08] MEDS ORDERED: DEXTROSE 50% 25 GM/50 ML VIAL IV PRN (20:12)
[2019-08-08] MEDS ORDERED: GLUCAGON 1 MG VIAL IM PRN (20:12)
[2019-08-08] MEDS ORDERED: CLINDAMYCIN INJ 600 MG in PREMIX 1 EACH IV SCH (20:30)
[2019-08-08] MEDS: SODIUM CHLORIDE 0.9% 1,000 ML IV SCH (22:19)
[2019-08-08] MEDS: MORPHINE 4 MG/1 ML VIAL IV PRN (23:20)
[2019-08-09] MEDS: INSULIN REGULAR 100 UNIT/ML SUBCUT SCH ×3 (01:18→12:00)
[2019-08-09] MEDS: MORPHINE 4 MG/1 ML VIAL IV PRN ×3 (03:30→17:48)
[2019-08-09] MEDS ORDERED: INFLUENZA VIRUS VACCINE 0.5 ML SYRINGE IM ONE (04:21)
[2019-08-09 05:36] LABS: Basophils % 0.1 % (0.0-0.8); Eosinophils # 0.1 10*3/uL (0.0-0.87); Eosinophils % 0.6 % (0.00-10.9); Hematocrit 27.6 VOL% (35.7-47.0); Lymphocytes # 2.1 10*3/uL (1.4-4.0); Lymphocytes % 21.3 % (21.3-54.2); Mean Corpuscular HGB Conc 32.6 GM/DL (32-36); Mean Corpuscular Volume 88.7 FL (87-102); Mean Platelet Volume 8.8 FL (9.6-12.0); Monocytes % 7.3 % (1.7-12.7); Neutrophils % 69.7 % (38.7-73.9); Platelet Count 237 T/CUMM (130-400); Red Blood Count 3.11 MC/CUMM (3.8-5.5); Red Cell Distribution Width 13.7 % (9.3-17.3); White Blood Count 9.7 T/CUMM (4-12)
[2019-08-09 06:00] LABS: Albumin 1.9 G/DL (3.4-5.0); Calcium 8.5 MG/DL (8.5-10.1); Osmolality,Calculated 280.7 MOS/KG (273-304); Total Protein 7.1 G/DL (6.4-8.3)
[2019-08-09] MEDS ORDERED: VANCOMYCIN INJ 1,750 MG in SODIUM CHLORIDE 0.9% 500 ML IV SCH (06:00)
[2019-08-09] MEDS: SODIUM CHLORIDE 0.9% 1,000 ML IV SCH (06:13)
[2019-08-09 06:24] LABS: Platelet Estimate Normal; Polychromasia Few
[2019-08-09] MEDS: PANTOPRAZOLE 40 MG VIAL IV SCH (10:13)
[2019-08-09] MEDS ORDERED: FAMOTIDINE 20 MG TABLET PO ONE (11:04)
[2019-08-09] MEDS ORDERED: DIAZEPAM 5 MG TABLET PO ONE (11:04)
[2019-08-09] MEDS ORDERED: GABAPENTIN 400 MG CAPSULE PO ONE (11:04)
[2019-08-09] MEDS ORDERED: ALBUTEROL/IPRATROPIUM 3 ML NEB RESP TX PRN (11:52)
[2019-08-09] MEDS: oxyCODONE/ACETAMINOPHEN 5-325 MG TABLET PO SCH ×2 (12:00→23:04)
[2019-08-09] MEDS ORDERED: LIDOCAINE 1% 20 ML VIAL ONE (12:09)
[2019-08-09] MEDS ORDERED: HYDROmorphone 2 MG/1 ML VIAL ONE (13:48)
[2019-08-09] MEDS ORDERED: ONDANSETRON 4 MG/2 ML VIAL ONE (13:48)
[2019-08-09] MEDS: HYDROmorphone 2 MG/1 ML VIAL IV PRN ×2 (13:50→13:55)
[2019-08-09] MEDS ORDERED: PROPOFOL 200 MG/20 ML VIAL IV ONE (13:53)
[2019-08-09] MEDS ORDERED: LIDOCAINE 2% 5 ML VIAL ONE (13:54)
[2019-08-09] MEDS ORDERED: SUCCINYLCHOLINE 200 MG/10 ML VIAL ONE (13:54)
[2019-08-09] MEDS ORDERED: ETOMIDATE 40 MG/20 ML VIAL IV ONE (13:54)
[2019-08-09] MEDS ORDERED: fentaNYL 100 MCG/2 ML VIAL ONE (13:54)
[2019-08-09] MEDS ORDERED: SEVOFLURANE 1 UNIT/15 MINUTE INH ONE (13:54)
[2019-08-09] MEDS ORDERED: ROCURONIUM 100 MG/10 ML VIAL IV ONE (13:54)
[2019-08-09] MEDS ORDERED: PHENYLEPHRINE DRIP 20 MG/250 ML PREMIX IV ONE (13:54)
[2019-08-09] MEDS ORDERED: MIDAZOLAM 2 MG/2 ML VIAL ONE (13:54)
[2019-08-09] MEDS ORDERED: ONDANSETRON 4 MG/2 ML VIAL IV PRN (13:57)
[2019-08-09] MEDS: INSULIN GLARGINE 100 UNIT/ML SUBCUT SCH (20:58)
[2019-08-09] MEDS: traZODone 50 MG TABLET PO SCH (20:58)
[2019-08-09] MEDS: PANTOPRAZOLE 40 MG TABLET PO SCH (20:58)
[2019-08-09] MEDS: GABAPENTIN 300 MG CAPSULE PO SCH (20:59)
[2019-08-09] MEDS: ACETAMINOPHEN 325 MG TABLET PO PRN (23:03)
[2019-08-10] MEDS: MORPHINE 4 MG/1 ML VIAL IV PRN ×2 (00:51→08:55)
[2019-08-10] MEDS: SODIUM CHLORIDE 0.9% 1,000 ML IV SCH ×5 (00:52→20:36)
[2019-08-10] MEDS: INSULIN REGULAR 100 UNIT/ML SUBCUT SCH ×5 (00:56→18:00)
[2019-08-10] MEDS: GABAPENTIN 300 MG CAPSULE PO SCH ×4 (01:21→20:28)
[2019-08-10] MEDS: LEVOFLOXACIN 750 MG TABLET PO SCH ×2 (01:21→09:38)
[2019-08-10] MEDS: INSULIN LISPRO 100 UNIT/ML SUBCUT SCH ×3 (01:22→17:15)
[2019-08-10] MEDS: glyBURIDE 5 MG TABLET PO SCH ×3 (01:22→17:19)
[2019-08-10] MEDS: oxyCODONE/ACETAMINOPHEN 5-325 MG TABLET PO SCH ×2 (01:23→05:42)
[2019-08-10 04:57] LABS: Basophils % 0.2 % (0.0-0.8); Eosinophils % 0.2 % (0.00-10.9); Hematocrit 24.6 VOL% (35.7-47.0); Hemoglobin 7.8 GM/DL (12.0-16.0); Immature Granulocytes % 0.7 %; Immature Granulocytes Absolute 0.07 #; Lymphocytes # 2.5 10*3/uL (1.4-4.0); Mean Corpuscular HGB Conc 31.7 GM/DL (32-36); Mean Corpuscular Volume 91.8 FL (87-102); Mean Platelet Volume 8.8 FL (9.6-12.0); Monocytes % 8.3 % (1.7-12.7); Neutrophils % 65.6 % (38.7-73.9); Platelet Count 225 T/CUMM (130-400); Red Blood Count 2.68 MC/CUMM (3.8-5.5)
[2019-08-10 05:27] LABS: Albumin 1.6 G/DL (3.4-5.0); Bilirubin,Total 1.2 MG/DL (0.2-1.0); Calcium 7.8 MG/DL (8.5-10.1); Osmolality,Calculated 285.7 MOS/KG (273-304); Thyroid Stimulating Hormone 0.392 uIU/ml (0.358-3.74); Total Protein 6.3 G/DL (6.4-8.3)
[2019-08-10 05:58] LABS: Eosinophils 2 % (0-10); Hypochromasia Slight; Lymphocytes 20 % (20-55); Platelet Estimate Normal; Segmented Neutrophils 69 % (50-85); Total Cells Counted 100
[2019-08-10] MEDS: PANTOPRAZOLE 40 MG TABLET PO SCH ×2 (09:35→20:28)
[2019-08-10] MEDS: SODIUM HYPOCHLORITE 0.25% IRRIG 473 ML BOTTLE TOP SCH (09:35)
[2019-08-10] MEDS: FUROSEMIDE 20 MG TABLET PO SCH (09:38)
[2019-08-10] MEDS: PANTOPRAZOLE 40 MG VIAL IV SCH (09:40)
[2019-08-10] MEDS ORDERED: MAGNESIUM SULF RIDER 2 GM in PREMIX 1 EACH IV ONE (12:06)
[2019-08-10] MEDS ORDERED: POTASSIUM CHLORIDE 20 MEQ TABLET PO ONE (12:06)
[2019-08-10] MEDS: HYDROmorphone 2 MG/1 ML VIAL IV PRN ×3 (13:40→20:44)
[2019-08-10] MEDS: LORATADINE 10 MG TABLET PO SCH (13:48)
[2019-08-10] MEDS: ALBUMIN 25% 25 GM in PREMIX 1 EACH IV SCH ×2 (15:48→22:49)
[2019-08-10] MEDS: BENZONATATE 100 MG CAPSULE PO SCH ×2 (15:49→20:28)
[2019-08-10] MEDS: oxyCODONE/ACETAMINOPHEN 5-325 MG TABLET PO PRN (16:02)
[2019-08-10] MEDS: traZODone 50 MG TABLET PO SCH (20:28)
[2019-08-10] MEDS: INSULIN GLARGINE 100 UNIT/ML SUBCUT SCH (20:28)
[2019-08-11] MEDS: HYDROmorphone 2 MG/1 ML VIAL IV PRN ×8 (00:48→16:05)
[2019-08-11] MEDS: INSULIN REGULAR 100 UNIT/ML SUBCUT SCH ×4 (00:51→18:31)
[2019-08-11] MEDS: ALBUMIN 25% 25 GM in PREMIX 1 EACH IV SCH ×2 (05:38→14:24)
[2019-08-11] MEDS: SODIUM CHLORIDE 0.9% 1,000 ML IV SCH ×3 (05:38→21:15)
[2019-08-11 06:09] LABS: Basophils % 0.2 % (0.0-0.8); Eosinophils # 0.1 10*3/uL (0.0-0.87); Eosinophils % 1.1 % (0.00-10.9); Hematocrit 19.7 VOL% (35.7-47.0); Immature Granulocytes % 0.6 %; Immature Granulocytes Absolute 0.04 #; Lymphocytes # 1.4 10*3/uL (1.4-4.0); Lymphocytes % 22.7 % (21.3-54.2); Mean Corpuscular HGB Conc 31.5 GM/DL (32-36); Mean Corpuscular Volume 90.8 FL (87-102); Monocytes % 5.6 % (1.7-12.7); Neutrophils % 69.8 % (38.7-73.9); Platelet Count 193 T/CUMM (130-400); Red Blood Count 2.17 MC/CUMM (3.8-5.5); Red Cell Distribution Width 13.8 % (9.3-17.3); White Blood Count 6.3 T/CUMM (4-12)
[2019-08-11 06:20] LABS: Hemoglobin 6.2 GM/DL (12.0-16.0)
[2019-08-11] MEDS ORDERED: SODIUM CHLORIDE 0.9% 1,000 ML IV PRN ×2 (06:26→18:53)
[2019-08-11 06:31] LABS: Albumin 2.1 G/DL (3.4-5.0); Bilirubin,Total 0.5 MG/DL (0.2-1.0); Calcium 7.9 MG/DL (8.5-10.1); Osmolality,Calculated 282.1 MOS/KG (273-304); Thyroid Stimulating Hormone 0.532 uIU/ml (0.358-3.74); Total Protein 6.5 G/DL (6.4-8.3)
[2019-08-11] MEDS ORDERED: LIDOCAINE 1% 20 ML VIAL ONE (06:37)
[2019-08-11 07:08] LABS: Band Neutrophils 2 % (0-10); Eosinophils 1 % (0-10); Hypochromasia 1+; Lymphocytes 24 % (20-55); Platelet Estimate Adequate; Segmented Neutrophils 67 % (50-85); Total Cells Counted 100
[2019-08-11] MEDS ORDERED: HYDROmorphone 2 MG/1 ML VIAL ONE (08:59)
[2019-08-11] MEDS ORDERED: fentaNYL 100 MCG/2 ML VIAL ONE ×2 (09:09→09:21)
[2019-08-11] MEDS ORDERED: DESFLURANE 1 UNIT/15 MINUTE INH ONE (09:09)
[2019-08-11] MEDS ORDERED: ONDANSETRON 4 MG/2 ML VIAL ONE (09:09)
[2019-08-11] MEDS ORDERED: LIDOCAINE 2% 5 ML VIAL ONE (09:09)
[2019-08-11] MEDS ORDERED: PROPOFOL 200 MG/20 ML VIAL IV ONE (09:09)
[2019-08-11] MEDS ORDERED: SODIUM CHLORIDE 0.9% 1,000 ML IV ONE (09:10)
[2019-08-11] MEDS ORDERED: GLYCOPYRROLATE 0.4 MG/2 ML VIAL ONE (09:10)
[2019-08-11] MEDS ORDERED: NEOSTIGMINE 10 MG/10 ML VIAL ONE (09:10)
[2019-08-11] MEDS ORDERED: ETOMIDATE 40 MG/20 ML VIAL IV ONE (09:10)
[2019-08-11] MEDS ORDERED: ROCURONIUM 100 MG/10 ML VIAL IV ONE (09:10)
[2019-08-11] MEDS ORDERED: SUCCINYLCHOLINE 200 MG/10 ML VIAL ONE (09:10)
[2019-08-11] MEDS ORDERED: PHENYLEPHRINE 1 MG/10 ML SYRINGE IV ONE (09:10)
[2019-08-11] MEDS ORDERED: fentaNYL 100 MCG/2 ML VIAL IV ONE (09:23)
[2019-08-11] MEDS ORDERED: ALBUTEROL/IPRATROPIUM 3 ML NEB RESP TX ONE ×2 (09:30→09:31)
[2019-08-11] MEDS ORDERED: FLUCONAZOLE 200 MG TABLET PO ONE (10:35)
[2019-08-11] MEDS: INSULIN LISPRO 100 UNIT/ML SUBCUT SCH ×2 (11:24→17:25)
[2019-08-11] MEDS: glyBURIDE 5 MG TABLET PO SCH ×2 (11:27→17:25)
[2019-08-11 11:35] LABS: Eosinophils # 0.1 10*3/uL (0.0-0.87); Hematocrit 25.4 VOL% (35.7-47.0); Hemoglobin 8.2 GM/DL (12.0-16.0); Immature Granulocytes Absolute 0.08 #; Lymphocytes # 1.6 10*3/uL (1.4-4.0); Mean Corpuscular HGB Conc 32.3 GM/DL (32-36); Mean Corpuscular Volume 91.4 FL (87-102); Mean Platelet Volume 8.7 FL (9.6-12.0); Monocytes % 4.3 % (1.7-12.7); Neutrophils % 73.7 % (38.7-73.9); Platelet Count 210 T/CUMM (130-400); Red Blood Count 2.78 MC/CUMM (3.8-5.5); Red Cell Distribution Width 13.8 % (9.3-17.3); White Blood Count 7.9 T/CUMM (4-12)
[2019-08-11] MEDS: FUROSEMIDE 20 MG TABLET PO SCH (11:57)
[2019-08-11] MEDS: GABAPENTIN 300 MG CAPSULE PO SCH ×3 (11:57→21:25)
[2019-08-11] MEDS: LEVOFLOXACIN 750 MG TABLET PO SCH (11:58)
[2019-08-11] MEDS: LORATADINE 10 MG TABLET PO SCH (11:59)
[2019-08-11] MEDS: BENZONATATE 100 MG CAPSULE PO SCH ×3 (11:59→21:25)
[2019-08-11] MEDS: POTASSIUM CHLORIDE 20 MEQ TABLET PO SCH (12:00)
[2019-08-11] MEDS: PANTOPRAZOLE 40 MG VIAL IV SCH (12:00)
[2019-08-11] MEDS: NYSTATIN CREAM 15 GM TUBE TOP SCH ×2 (12:09→21:25)
[2019-08-11] MEDS: SODIUM HYPOCHLORITE 0.25% IRRIG 473 ML BOTTLE TOP SCH (12:20)
[2019-08-11] MEDS: PANTOPRAZOLE 40 MG TABLET PO SCH ×2 (12:20→21:25)
[2019-08-11] MEDS: ACETAMINOPHEN 325 MG TABLET PO PRN (12:51)
[2019-08-11] MEDS: oxyCODONE/ACETAMINOPHEN 5-325 MG TABLET PO PRN (17:30)
[2019-08-11] MEDS ORDERED: NALOXONE 0.4 MG/ML VIAL IV ONE (20:18)
[2019-08-11] MEDS ORDERED: MAGNESIUM SULF RIDER 2 GM in PREMIX 1 EACH IV ONE (20:24)
[2019-08-11] MEDS: INSULIN GLARGINE 100 UNIT/ML SUBCUT SCH (20:25)
[2019-08-11] MEDS ORDERED: KETOROLAC 15 MG/1 ML VIAL IV SCH (20:30)
[2019-08-11] MEDS: traZODone 50 MG TABLET PO SCH (21:25)
[2019-08-12] MEDS: INSULIN REGULAR 100 UNIT/ML SUBCUT SCH ×4 (00:45→19:00)
[2019-08-12] MEDS ORDERED: FUROSEMIDE 20 MG/2 ML VIAL IV ONE (01:00)
[2019-08-12] MEDS: ALBUMIN 25% 25 GM in PREMIX 1 EACH IV SCH ×3 (01:25→17:20)
[2019-08-12 02:05] LABS: Hematocrit 23.5 VOL% (35.7-47.0); Hemoglobin 7.4 GM/DL (12.0-16.0)
[2019-08-12] MEDS: oxyCODONE/ACETAMINOPHEN 5-325 MG TABLET PO PRN ×3 (03:37→19:12)
[2019-08-12] MEDS: ALBUTEROL/IPRATROPIUM 3 ML NEB RESP TX SCH ×4 (06:29→19:37)
[2019-08-12] MEDS ORDERED: MAGNESIUM SULF RIDER 2 GM in PREMIX 1 EACH IV ONE (07:00)
[2019-08-12 08:15] LABS: Basophils % 0.2 % (0.0-0.8); Eosinophils # 0.1 10*3/uL (0.0-0.87); Eosinophils % 1.2 % (0.00-10.9); Hematocrit 23.9 VOL% (35.7-47.0); Hemoglobin 7.9 GM/DL (12.0-16.0); Immature Granulocytes % 0.9 %; Immature Granulocytes Absolute 0.05 #; Lymphocytes # 1.6 10*3/uL (1.4-4.0); Lymphocytes % 27.6 % (21.3-54.2); Mean Corpuscular HGB Conc 33.1 GM/DL (32-36); Mean Corpuscular Volume 89.5 FL (87-102); Monocytes % 4.6 % (1.7-12.7); Neutrophils % 65.5 % (38.7-73.9); Platelet Count 177 T/CUMM (130-400); Red Blood Count 2.67 MC/CUMM (3.8-5.5); Red Cell Distribution Width 13.8 % (9.3-17.3); White Blood Count 5.7 T/CUMM (4-12)
[2019-08-12 08:40] LABS: Albumin 2.5 G/DL (3.4-5.0); Bilirubin,Total 0.4 MG/DL (0.2-1.0); Osmolality,Calculated 272.7 MOS/KG (273-304); Thyroid Stimulating Hormone 0.911 uIU/ml (0.358-3.74); Total Protein 6.5 G/DL (6.4-8.3)
[2019-08-12] MEDS: LORATADINE 10 MG TABLET PO SCH (08:55)
[2019-08-12] MEDS: FUROSEMIDE 20 MG TABLET PO SCH (08:57)
[2019-08-12] MEDS: BENZONATATE 100 MG CAPSULE PO SCH ×3 (08:58→21:03)
[2019-08-12] MEDS: GABAPENTIN 300 MG CAPSULE PO SCH ×3 (08:58→21:03)
[2019-08-12] MEDS: POTASSIUM CHLORIDE 20 MEQ TABLET PO SCH (08:59)
[2019-08-12] MEDS: NYSTATIN CREAM 15 GM TUBE TOP SCH ×2 (08:59→21:03)
[2019-08-12] MEDS: LEVOFLOXACIN 750 MG TABLET PO SCH (08:59)
[2019-08-12] MEDS: glyBURIDE 5 MG TABLET PO SCH ×2 (09:00→19:00)
[2019-08-12] MEDS: INSULIN LISPRO 100 UNIT/ML SUBCUT SCH ×2 (09:01→19:00)
[2019-08-12] MEDS: PANTOPRAZOLE 40 MG VIAL IV SCH (09:04)
[2019-08-12] MEDS: PANTOPRAZOLE 40 MG TABLET PO SCH ×2 (09:04→21:03)
[2019-08-12] MEDS: SODIUM CHLORIDE 0.9% 1,000 ML IV SCH (09:40)
[2019-08-12] MEDS: KETOROLAC 15 MG/1 ML VIAL IV PRN (10:26)
[2019-08-12] MEDS: SODIUM HYPOCHLORITE 0.25% IRRIG 473 ML BOTTLE TOP SCH (11:00)
[2019-08-12] MEDS ORDERED: SODIUM CHLORIDE 0.9% 1,000 ML IV PRN (12:43)
[2019-08-12] MEDS: HYDROmorphone 2 MG/1 ML VIAL IV PRN ×3 (13:05→22:09)
[2019-08-12] MEDS: ZINC OXIDE PASTE 113 GM TUBE TOP SCH (21:03)
[2019-08-12] MEDS: traZODone 50 MG TABLET PO SCH (21:03)
[2019-08-12] MEDS: INSULIN GLARGINE 100 UNIT/ML SUBCUT SCH (21:04)
[2019-08-13] MEDS: SODIUM CHLORIDE 0.9% 1,000 ML IV SCH (00:30)
[2019-08-13] MEDS: ALBUTEROL/IPRATROPIUM 3 ML NEB RESP TX SCH ×5 (00:45→19:20)
[2019-08-13] MEDS: ALBUMIN 25% 25 GM in PREMIX 1 EACH IV SCH (01:20)
[2019-08-13] MEDS: INSULIN REGULAR 100 UNIT/ML SUBCUT SCH ×4 (01:24→18:33)
[2019-08-13 02:21] LABS: Basophils % 0.2 % (0.0-0.8); Eosinophils # 0.1 10*3/uL (0.0-0.87); Eosinophils % 0.8 % (0.00-10.9); Hematocrit 28.7 VOL% (35.7-47.0); Hemoglobin 9.4 GM/DL (12.0-16.0); Immature Granulocytes % 0.8 %; Immature Granulocytes Absolute 0.05 #; Lymphocytes # 1.5 10*3/uL (1.4-4.0); Lymphocytes % 24.5 % (21.3-54.2); Mean Corpuscular HGB Conc 32.8 GM/DL (32-36); Monocytes % 3.9 % (1.7-12.7); Neutrophils % 69.8 % (38.7-73.9); Platelet Count 212 T/CUMM (130-400); Red Blood Count 3.19 MC/CUMM (3.8-5.5); Red Cell Distribution Width 14.2 % (9.3-17.3)
[2019-08-13 02:41] LABS: Albumin 2.7 G/DL (3.4-5.0); Bilirubin,Total 0.4 MG/DL (0.2-1.0); Calcium 7.7 MG/DL (8.5-10.1); Osmolality,Calculated 284.5 MOS/KG (273-304); Thyroid Stimulating Hormone 1.78 uIU/ml (0.358-3.74); Total Protein 6.4 G/DL (6.4-8.3)
[2019-08-13] MEDS: HYDROmorphone 2 MG/1 ML VIAL IV PRN ×5 (07:18→21:32)
[2019-08-13 07:29] LABS: ABG Base Excess 0.5 MMOL/L (-2.5-2.5); ABG HCO3 24.5 MMOL/L (20-26); ABG Oxygen Saturation 75.2 % (95-100); ABG PCO2 39.7 MM HG (35-48); ABG PH 7.409 (7.35-7.45); ABG TCO2 22.6 MMOL/L (23-27); Allen Test Positive
[2019-08-13 07:31] LABS: ABG PO2 40.5 MM HG (80-95)
[2019-08-13] MEDS ORDERED: FUROSEMIDE 40 MG/4 ML VIAL ONE (07:36)
[2019-08-13] MEDS: FUROSEMIDE 40 MG/4 ML VIAL IV SCH ×2 (07:39→15:20)
[2019-08-13 07:51] LABS: Basophils % 0.2 % (0.0-0.8); Eosinophils # 0.1 10*3/uL (0.0-0.87); Eosinophils % 0.6 % (0.00-10.9); Hematocrit 35.1 VOL% (35.7-47.0); Immature Granulocytes % 1.2 %; Immature Granulocytes Absolute 0.11 #; Lymphocytes # 1.1 10*3/uL (1.4-4.0); Mean Corpuscular HGB Conc 32.8 GM/DL (32-36); Mean Corpuscular Volume 90.5 FL (87-102); Mean Platelet Volume 8.9 FL (9.6-12.0); Monocytes % 3.7 % (1.7-12.7); Neutrophils % 82.3 % (38.7-73.9); Red Cell Distribution Width 14.4 % (9.3-17.3)
[2019-08-13 07:57] LABS: Hemoglobin 11.5 GM/DL (12.0-16.0); Red Blood Count 3.88 MC/CUMM (3.8-5.5); White Blood Count 8.8 T/CUMM (4-12)
[2019-08-13 07:58] LABS: Platelet Count 257 T/CUMM (130-400)
[2019-08-13] MEDS: ACETAMINOPHEN 325 MG TABLET PO PRN (08:12)
[2019-08-13 08:13] LABS: Alanine Aminotransferase 25 U/L (13-56); Albumin 3.2 G/DL (3.4-5.0); Alkaline Phosphatase 233 U/L (45-117); Aspartate Amino Transferase 23 U/L (0-37); Blood Urea Nitrogen 8 MG/DL (7-18); Calcium 8.9 MG/DL (8.5-10.1); Estimated Glom Filtration Rate 104 ML/MIN; Glucose 289 MG/DL (74-106); Osmolality,Calculated 283.7 MOS/KG (273-304); Troponin I < 0.015 NG/ML (0.00-0.045)
[2019-08-13] MEDS: glyBURIDE 5 MG TABLET PO SCH ×2 (08:55→18:40)
[2019-08-13] MEDS: INSULIN LISPRO 100 UNIT/ML SUBCUT SCH ×2 (08:56→18:40)
[2019-08-13] MEDS: LEVOFLOXACIN 750 MG TABLET PO SCH (08:56)
[2019-08-13] MEDS: GABAPENTIN 300 MG CAPSULE PO SCH ×3 (08:56→21:31)
[2019-08-13] MEDS: LORATADINE 10 MG TABLET PO SCH (08:56)
[2019-08-13] MEDS: POTASSIUM CHLORIDE 20 MEQ TABLET PO SCH (08:56)
[2019-08-13] MEDS: BENZONATATE 100 MG CAPSULE PO SCH ×3 (08:56→21:32)
[2019-08-13] MEDS: SODIUM HYPOCHLORITE 0.25% IRRIG 473 ML BOTTLE TOP SCH (08:57)
[2019-08-13] MEDS: NYSTATIN CREAM 15 GM TUBE TOP SCH ×2 (08:57→21:31)
[2019-08-13] MEDS: PANTOPRAZOLE 40 MG TABLET PO SCH ×2 (08:58→21:31)
[2019-08-13] MEDS: ZINC OXIDE PASTE 113 GM TUBE TOP SCH ×2 (09:05→21:31)
[2019-08-13] MEDS: CEFEPIME 1,000 MG in SODIUM CHLORIDE 0.9% 100 ML IV SCH ×3 (10:09→22:40)
[2019-08-13] MEDS ORDERED: MAGNESIUM SULF RIDER 2 GM in PREMIX 1 EACH IV ONE (13:08)
[2019-08-13] MEDS: LINEZOLID INJ 600 MG in PREMIX 1 EACH IV SCH ×2 (13:20→22:40)
[2019-08-13] MEDS: INSULIN GLARGINE 100 UNIT/ML SUBCUT SCH (21:31)
[2019-08-13] MEDS: traZODone 50 MG TABLET PO SCH (21:31)
[2019-08-13] MEDS: ACYCLOVIR 5% OINT 15 GM TUBE TOP SCH (21:32)
[2019-08-13] MEDS: BENZOCAINE 20%/MENTHOL 0.5% SPRAY 56 GM CAN TOP PRN (21:33)
[2019-08-13] MEDS: oxyCODONE/ACETAMINOPHEN 5-325 MG TABLET PO PRN (22:40)
[2019-08-14] MEDS: ALBUTEROL/IPRATROPIUM 3 ML NEB RESP TX SCH ×4 (01:20→19:43)
[2019-08-14] MEDS: INSULIN REGULAR 100 UNIT/ML SUBCUT SCH ×4 (01:35→17:02)
[2019-08-14] MEDS: HYDROmorphone 2 MG/1 ML VIAL IV PRN ×6 (01:55→20:35)
[2019-08-14 06:27] LABS: Albumin 2.3 G/DL (3.4-5.0); Bilirubin,Total 0.5 MG/DL (0.2-1.0); Calcium 8.3 MG/DL (8.5-10.1); Osmolality,Calculated 274.5 MOS/KG (273-304); Thyroid Stimulating Hormone 1.54 uIU/ml (0.358-3.74); Total Protein 6.5 G/DL (6.4-8.3)
[2019-08-14] MEDS: ACYCLOVIR 5% OINT 15 GM TUBE TOP SCH ×5 (06:31→22:53)
[2019-08-14] MEDS: CEFEPIME 1,000 MG in SODIUM CHLORIDE 0.9% 100 ML IV SCH ×2 (06:41→11:04)
[2019-08-14] MEDS: INSULIN LISPRO 100 UNIT/ML SUBCUT SCH ×2 (08:33→16:54)
[2019-08-14] MEDS: POTASSIUM CHLORIDE 20 MEQ TABLET PO SCH (08:34)
[2019-08-14] MEDS: LEVOFLOXACIN 750 MG TABLET PO SCH (08:34)
[2019-08-14] MEDS: GABAPENTIN 300 MG CAPSULE PO SCH ×3 (08:34→20:10)
[2019-08-14] MEDS: BENZONATATE 100 MG CAPSULE PO SCH ×3 (08:34→20:42)
[2019-08-14] MEDS: PANTOPRAZOLE 40 MG TABLET PO SCH ×2 (08:34→20:10)
[2019-08-14] MEDS: LORATADINE 10 MG TABLET PO SCH (08:34)
[2019-08-14] MEDS: BENZOCAINE 20%/MENTHOL 0.5% SPRAY 56 GM CAN TOP PRN (08:34)
[2019-08-14] MEDS: glyBURIDE 5 MG TABLET PO SCH ×2 (08:39→16:54)
[2019-08-14] MEDS: SODIUM HYPOCHLORITE 0.25% IRRIG 473 ML BOTTLE TOP SCH (08:40)
[2019-08-14] MEDS: NYSTATIN CREAM 15 GM TUBE TOP SCH ×2 (08:40→20:41)
[2019-08-14] MEDS: ZINC OXIDE PASTE 113 GM TUBE TOP SCH ×2 (08:40→20:41)
[2019-08-14] MEDS: FUROSEMIDE 40 MG/4 ML VIAL IV SCH (08:40)
[2019-08-14] MEDS ORDERED: MAGNESIUM SULF RIDER 4 GM in PREMIX 1 EACH IV PRN (08:50)
[2019-08-14] MEDS ORDERED: POTASSIUM CHLORIDE 20 MEQ TABLET PO ONE (09:58)
[2019-08-14] MEDS ORDERED: MAGNESIUM SULF RIDER 4 GM in PREMIX 1 EACH IV ONE (09:58)
[2019-08-14] MEDS: LINEZOLID INJ 600 MG in PREMIX 1 EACH IV SCH ×2 (10:38→22:53)
[2019-08-14] MEDS: traZODone 50 MG TABLET PO SCH (20:10)
[2019-08-14] MEDS: INSULIN GLARGINE 100 UNIT/ML SUBCUT SCH (20:41)
[2019-08-14] MEDS: oxyCODONE/ACETAMINOPHEN 5-325 MG TABLET PO PRN (22:54)
[2019-08-15] MEDS: INSULIN REGULAR 100 UNIT/ML SUBCUT SCH ×4 (00:16→17:17)
[2019-08-15] MEDS: ALBUTEROL/IPRATROPIUM 3 ML NEB RESP TX SCH ×4 (00:44→18:55)
[2019-08-15 05:36] LABS: Basophils % 0.4 % (0.0-0.8); Eosinophils % 0.5 % (0.00-10.9); Hematocrit 31.8 VOL% (35.7-47.0); Hemoglobin 10.3 GM/DL (12.0-16.0); Immature Granulocytes % 0.9 %; Immature Granulocytes Absolute 0.05 #; Lymphocytes # 1.3 10*3/uL (1.4-4.0); Lymphocytes % 23.4 % (21.3-54.2); Mean Corpuscular HGB Conc 32.4 GM/DL (32-36); Mean Corpuscular Volume 91.1 FL (87-102); Mean Platelet Volume 9.8 FL (9.6-12.0); Monocytes % 4.6 % (1.7-12.7); Neutrophils % 70.2 % (38.7-73.9); Platelet Count 227 T/CUMM (130-400); Red Blood Count 3.49 MC/CUMM (3.8-5.5); Red Cell Distribution Width 13.8 % (9.3-17.3); White Blood Count 5.5 T/CUMM (4-12)
[2019-08-15 06:03] LABS: Hypochromasia Slight; Platelet Estimate Normal; Polychromasia Few
[2019-08-15 06:10] LABS: Albumin 2.3 G/DL (3.4-5.0); Bilirubin,Total 0.6 MG/DL (0.2-1.0); Calcium 8.7 MG/DL (8.5-10.1); Osmolality,Calculated 270.8 MOS/KG (273-304); Thyroid Stimulating Hormone 1.43 uIU/ml (0.358-3.74); Total Protein 6.7 G/DL (6.4-8.3)
[2019-08-15] MEDS: ACYCLOVIR 5% OINT 15 GM TUBE TOP SCH ×5 (06:26→23:00)
[2019-08-15] MEDS: BENZOCAINE 20%/MENTHOL 0.5% SPRAY 56 GM CAN TOP PRN (06:27)
[2019-08-15] MEDS: HYDROmorphone 2 MG/1 ML VIAL IV PRN ×3 (07:37→18:35)
[2019-08-15] MEDS: glyBURIDE 5 MG TABLET PO SCH ×2 (07:37→16:57)
[2019-08-15] MEDS: INSULIN LISPRO 100 UNIT/ML SUBCUT SCH ×2 (07:39→16:57)
[2019-08-15] MEDS ORDERED: CEFTAROLINE 600 MG in SODIUM CHLORIDE 0.9% 100 ML IV SCH (09:00)
[2019-08-15] MEDS ORDERED: PENICILLIN G POTASSIUM INJ 2,000,000 UNIT in SODIUM CHLORIDE 0.9% 100 ML IV SCH (09:00)
[2019-08-15] MEDS: BENZONATATE 100 MG CAPSULE PO SCH ×3 (10:00→21:20)
[2019-08-15] MEDS: LORATADINE 10 MG TABLET PO SCH (10:00)
[2019-08-15] MEDS: FUROSEMIDE 40 MG/4 ML VIAL IV SCH ×2 (10:00→16:57)
[2019-08-15] MEDS: ZINC OXIDE PASTE 113 GM TUBE TOP SCH ×2 (10:01→23:19)
[2019-08-15] MEDS: POTASSIUM CHLORIDE 20 MEQ TABLET PO SCH (10:01)
[2019-08-15] MEDS: NYSTATIN CREAM 15 GM TUBE TOP SCH ×2 (10:01→23:19)
[2019-08-15] MEDS: SODIUM HYPOCHLORITE 0.25% IRRIG 473 ML BOTTLE TOP SCH (10:01)
[2019-08-15] MEDS: PANTOPRAZOLE 40 MG TABLET PO SCH ×2 (10:01→21:20)
[2019-08-15] MEDS: GABAPENTIN 300 MG CAPSULE PO SCH ×3 (10:01→23:19)
[2019-08-15] MEDS: CEFEPIME 1,000 MG in SODIUM CHLORIDE 0.9% 100 ML IV SCH ×3 (11:14→23:00)
[2019-08-15] MEDS: oxyCODONE/ACETAMINOPHEN 5-325 MG TABLET PO PRN ×2 (11:15→23:28)
[2019-08-15] MEDS: MENTHOL/ZINC OXIDE OINT 71 GM JAR TOP SCH ×2 (14:52→23:18)
[2019-08-15] MEDS: MAGNESIUM SULF RIDER 2 GM in PREMIX 1 EACH IV PRN (18:35)
[2019-08-15] MEDS: INSULIN GLARGINE 100 UNIT/ML SUBCUT SCH (21:20)
[2019-08-15] MEDS: traZODone 50 MG TABLET PO SCH (22:00)
[2019-08-16] MEDS: INSULIN REGULAR 100 UNIT/ML SUBCUT SCH ×4 (00:05→18:04)
[2019-08-16] MEDS: ALBUTEROL/IPRATROPIUM 3 ML NEB RESP TX SCH ×4 (00:19→19:54)
[2019-08-16] MEDS: HYDROmorphone 2 MG/1 ML VIAL IV PRN ×3 (02:40→21:22)
[2019-08-16 05:02] LABS: Basophils % 0.2 % (0.0-0.8); Eosinophils % 0.3 % (0.00-10.9); Hematocrit 36.6 VOL% (35.7-47.0); Hemoglobin 11.5 GM/DL (12.0-16.0); Immature Granulocytes Absolute 0.06 #; Lymphocytes # 1.3 10*3/uL (1.4-4.0); Lymphocytes % 22.6 % (21.3-54.2); Mean Corpuscular HGB Conc 31.4 GM/DL (32-36); Mean Corpuscular Volume 92.2 FL (87-102); Mean Platelet Volume 8.9 FL (9.6-12.0); Monocytes % 4.8 % (1.7-12.7); Neutrophils % 71.1 % (38.7-73.9); Platelet Count 274 T/CUMM (130-400); Red Blood Count 3.97 MC/CUMM (3.8-5.5); Red Cell Distribution Width 13.8 % (9.3-17.3); White Blood Count 5.9 T/CUMM (4-12)
[2019-08-16] MEDS: CEFEPIME 1,000 MG in SODIUM CHLORIDE 0.9% 100 ML IV SCH ×3 (06:00→18:04)
[2019-08-16] MEDS: ACYCLOVIR 5% OINT 15 GM TUBE TOP SCH ×5 (06:16→21:30)
[2019-08-16] MEDS: FUROSEMIDE 40 MG/4 ML VIAL IV SCH ×2 (08:14→16:10)
[2019-08-16] MEDS: MAGNESIUM SULF RIDER 2 GM in PREMIX 1 EACH IV PRN (08:15)
[2019-08-16] MEDS: INSULIN LISPRO 100 UNIT/ML SUBCUT SCH ×2 (08:15→18:04)
[2019-08-16] MEDS: POTASSIUM CHLORIDE 20 MEQ TABLET PO SCH (08:42)
[2019-08-16] MEDS: LORATADINE 10 MG TABLET PO SCH (08:42)
[2019-08-16] MEDS: PANTOPRAZOLE 40 MG TABLET PO SCH ×2 (08:42→20:58)
[2019-08-16] MEDS: oxyCODONE/ACETAMINOPHEN 5-325 MG TABLET PO PRN ×2 (08:42→15:35)
[2019-08-16] MEDS: GABAPENTIN 300 MG CAPSULE PO SCH ×3 (08:42→20:58)
[2019-08-16] MEDS: BENZONATATE 100 MG CAPSULE PO SCH ×3 (08:42→20:58)
[2019-08-16] MEDS: glyBURIDE 5 MG TABLET PO SCH ×2 (08:43→18:04)
[2019-08-16] MEDS: ZINC OXIDE PASTE 113 GM TUBE TOP SCH ×2 (09:30→20:57)
[2019-08-16] MEDS: MENTHOL/ZINC OXIDE OINT 71 GM JAR TOP SCH ×2 (09:30→20:57)
[2019-08-16] MEDS: NYSTATIN CREAM 15 GM TUBE TOP SCH ×2 (09:30→20:58)
[2019-08-16] MEDS: SODIUM HYPOCHLORITE 0.25% IRRIG 473 ML BOTTLE TOP SCH (09:30)
[2019-08-16 09:50] LABS: Albumin 2.8 G/DL (3.4-5.0); Bilirubin,Total 0.5 MG/DL (0.2-1.0); Calcium 9.7 MG/DL (8.5-10.1); Total Protein 7.9 G/DL (6.4-8.3)
[2019-08-16] MEDS ORDERED: PHENYLEPHRINE DRIP 40 MG/250 ML PREMIX IV PRN (10:04)
[2019-08-16] MEDS ORDERED: PHENYLEPHRINE DRIP 40 MG/250 ML PREMIX IV ONE (10:06)
[2019-08-16] MEDS ORDERED: NALOXONE 0.4 MG/ML VIAL IV PRN (10:17)
[2019-08-16] MEDS: KETOROLAC 15 MG/1 ML VIAL IV PRN ×2 (12:58→19:33)
[2019-08-16] MEDS: BENZOCAINE 20%/MENTHOL 0.5% SPRAY 56 GM CAN TOP PRN (20:47)
[2019-08-16] MEDS: traZODone 50 MG TABLET PO SCH (20:57)
[2019-08-16] MEDS: INSULIN GLARGINE 100 UNIT/ML SUBCUT SCH (20:58)
[2019-08-17] MEDS: INSULIN REGULAR 100 UNIT/ML SUBCUT SCH ×5 (00:50→21:41)
[2019-08-17] MEDS: CEFEPIME 1,000 MG in SODIUM CHLORIDE 0.9% 100 ML IV SCH ×4 (00:50→17:31)
[2019-08-17] MEDS: ALBUTEROL/IPRATROPIUM 3 ML NEB RESP TX SCH ×4 (01:25→20:16)
[2019-08-17] MEDS: oxyCODONE/ACETAMINOPHEN 5-325 MG TABLET PO PRN ×3 (04:22→19:28)
[2019-08-17 04:59] LABS: Basophils % 0.2 % (0.0-0.8); Eosinophils % 0.6 % (0.00-10.9); Hematocrit 36.4 VOL% (35.7-47.0); Hemoglobin 11.5 GM/DL (12.0-16.0); Immature Granulocytes % 1.6 %; Immature Granulocytes Absolute 0.08 #; Lymphocytes # 1.6 10*3/uL (1.4-4.0); Lymphocytes % 30.7 % (21.3-54.2); Mean Corpuscular HGB Conc 31.6 GM/DL (32-36); Mean Corpuscular Volume 91.7 FL (87-102); Mean Platelet Volume 8.1 FL (9.6-12.0); Monocytes % 5.9 % (1.7-12.7); Platelet Count 273 T/CUMM (130-400); Red Blood Count 3.97 MC/CUMM (3.8-5.5); Red Cell Distribution Width 13.5 % (9.3-17.3); White Blood Count 5.1 T/CUMM (4-12)
[2019-08-17 05:26] LABS: Albumin 2.6 G/DL (3.4-5.0); Bilirubin,Total 0.7 MG/DL (0.2-1.0); Osmolality,Calculated 284.8 MOS/KG (273-304); Total Protein 7.1 G/DL (6.4-8.3)
[2019-08-17] MEDS: ACYCLOVIR 5% OINT 15 GM TUBE TOP SCH ×5 (06:00→21:46)
[2019-08-17] MEDS: MAGNESIUM SULF RIDER 2 GM in PREMIX 1 EACH IV PRN (06:08)
[2019-08-17] MEDS: SODIUM HYPOCHLORITE 0.25% IRRIG 473 ML BOTTLE TOP SCH (09:00)
[2019-08-17] MEDS: POTASSIUM CHLORIDE 20 MEQ TABLET PO SCH (09:25)
[2019-08-17] MEDS: PANTOPRAZOLE 40 MG TABLET PO SCH ×2 (09:25→21:40)
[2019-08-17] MEDS: LORATADINE 10 MG TABLET PO SCH (09:26)
[2019-08-17] MEDS: GABAPENTIN 300 MG CAPSULE PO SCH ×3 (09:26→21:40)
[2019-08-17] MEDS: glyBURIDE 5 MG TABLET PO SCH (09:27)
[2019-08-17] MEDS: BENZONATATE 100 MG CAPSULE PO SCH ×3 (09:27→21:41)
[2019-08-17] MEDS: NYSTATIN CREAM 15 GM TUBE TOP SCH ×2 (09:30→21:45)
[2019-08-17] MEDS: MENTHOL/ZINC OXIDE OINT 71 GM JAR TOP SCH ×2 (09:30→21:46)
[2019-08-17] MEDS: ZINC OXIDE PASTE 113 GM TUBE TOP SCH ×2 (09:30→21:45)
[2019-08-17] MEDS: INSULIN LISPRO 100 UNIT/ML SUBCUT SCH ×2 (09:38→17:30)
[2019-08-17] MEDS: FUROSEMIDE 40 MG/4 ML VIAL IV SCH (09:39)
[2019-08-17] MEDS: SODIUM CHLORIDE 0.9% 1,000 ML IV SCH (10:24)
[2019-08-17] MEDS: HYDROmorphone 2 MG/1 ML VIAL IV PRN ×3 (10:49→21:42)
[2019-08-17] MEDS: VANCOMYCIN INJ 1,500 MG in SODIUM CHLORIDE 0.9% 500 ML IV SCH ×2 (11:55→20:00)
[2019-08-17 12:03] LABS: Apearance,Urine CLEAR (Clear); Bilirubin,Urine Negative (Negative); Blood, Urine Negative (Negative); Glucose,Urine (UA) Negative (Negative); Ketones,Urine Negative (Negative); Mucus,Urine Occasional /LPF (Occasional); Nitrite,Urine Negative (Negative); Protein,Urine Negative; Urine Color Straw (Yellow); Urine Specific Gravity 1.013 (1.001-1.035); Urine Urobilinogen < 2.0 EU/DL (0.2-1.0); WBC,Urine 1 /HPF (0-6)
[2019-08-17] MEDS ORDERED: KETOROLAC 15 MG/1 ML VIAL IV PRN (17:43)
[2019-08-17] MEDS: INSULIN GLARGINE 100 UNIT/ML SUBCUT SCH (21:41)
[2019-08-18] MEDS: oxyCODONE/ACETAMINOPHEN 5-325 MG TABLET PO PRN ×4 (00:15→23:56)
[2019-08-18] MEDS: CEFEPIME 1,000 MG in SODIUM CHLORIDE 0.9% 100 ML IV SCH ×5 (01:01→23:55)
[2019-08-18] MEDS: ALBUTEROL/IPRATROPIUM 3 ML NEB RESP TX SCH ×4 (01:12→19:40)
[2019-08-18] MEDS: HYDROmorphone 2 MG/1 ML VIAL IV PRN ×4 (02:33→20:56)
[2019-08-18] MEDS: VANCOMYCIN INJ 1,500 MG in SODIUM CHLORIDE 0.9% 500 ML IV SCH ×3 (02:37→15:33)
[2019-08-18 05:37] LABS: Basophils % 0.3 % (0.0-0.8); Eosinophils % 0.4 % (0.00-10.9); Hematocrit 35.3 VOL% (35.7-47.0); Hemoglobin 11.2 GM/DL (12.0-16.0); Immature Granulocytes % 3.6 %; Immature Granulocytes Absolute 0.26 #; Lymphocytes # 2.2 10*3/uL (1.4-4.0); Lymphocytes % 30.9 % (21.3-54.2); Mean Corpuscular HGB Conc 31.7 GM/DL (32-36); Mean Corpuscular Volume 91.9 FL (87-102); Mean Platelet Volume 8.1 FL (9.6-12.0); Monocytes % 4.9 % (1.7-12.7); Neutrophils % 59.9 % (38.7-73.9); Platelet Count 248 T/CUMM (130-400); Red Blood Count 3.84 MC/CUMM (3.8-5.5); Red Cell Distribution Width 13.8 % (9.3-17.3); White Blood Count 7.2 T/CUMM (4-12)
[2019-08-18 06:05] LABS: Albumin 2.6 G/DL (3.4-5.0); Bilirubin,Total 0.5 MG/DL (0.2-1.0); Calcium 8.9 MG/DL (8.5-10.1); Osmolality,Calculated 278.7 MOS/KG (273-304); Total Protein 6.9 G/DL (6.4-8.3)
[2019-08-18] MEDS: ACYCLOVIR 5% OINT 15 GM TUBE TOP SCH ×5 (06:20→21:45)
[2019-08-18] MEDS: SODIUM CHLORIDE 0.9% 1,000 ML IV SCH (08:30)
[2019-08-18] MEDS: INSULIN REGULAR 100 UNIT/ML SUBCUT SCH ×4 (09:34→20:54)
[2019-08-18] MEDS: INSULIN LISPRO 100 UNIT/ML SUBCUT SCH ×2 (09:34→17:23)
[2019-08-18] MEDS: BENZONATATE 100 MG CAPSULE PO SCH ×3 (09:35→20:47)
[2019-08-18] MEDS: NYSTATIN CREAM 15 GM TUBE TOP SCH ×2 (09:35→20:47)
[2019-08-18] MEDS: POTASSIUM CHLORIDE 20 MEQ TABLET PO SCH (09:35)
[2019-08-18] MEDS: ZINC OXIDE PASTE 113 GM TUBE TOP SCH ×2 (09:35→20:49)
[2019-08-18] MEDS: PANTOPRAZOLE 40 MG TABLET PO SCH ×2 (09:35→20:47)
[2019-08-18] MEDS: LORATADINE 10 MG TABLET PO SCH (09:35)
[2019-08-18] MEDS: SODIUM HYPOCHLORITE 0.25% IRRIG 473 ML BOTTLE TOP SCH (09:35)
[2019-08-18] MEDS: MENTHOL/ZINC OXIDE OINT 71 GM JAR TOP SCH ×2 (09:35→20:47)
[2019-08-18] MEDS: GABAPENTIN 300 MG CAPSULE PO SCH ×3 (09:38→20:47)
[2019-08-18] MEDS: MAGNESIUM SULF RIDER 2 GM in PREMIX 1 EACH IV PRN (09:55)
[2019-08-18] MEDS: INSULIN GLARGINE 100 UNIT/ML SUBCUT SCH (21:02)
[2019-08-19] MEDS: ALBUTEROL/IPRATROPIUM 3 ML NEB RESP TX SCH ×4 (01:15→19:15)
[2019-08-19] MEDS: HYDROmorphone 2 MG/1 ML VIAL IV PRN ×4 (01:33→22:09)
[2019-08-19] MEDS: VANCOMYCIN INJ 1,500 MG in SODIUM CHLORIDE 0.9% 500 ML IV SCH ×3 (03:57→20:17)
[2019-08-19 05:43] LABS: Basophils % 0.5 % (0.0-0.8); Eosinophils % 0.1 % (0.00-10.9); Hematocrit 36.1 VOL% (35.7-47.0); Hemoglobin 11.6 GM/DL (12.0-16.0); Immature Granulocytes % 4.4 %; Immature Granulocytes Absolute 0.38 #; Lymphocytes # 2.3 10*3/uL (1.4-4.0); Lymphocytes % 26.4 % (21.3-54.2); Mean Corpuscular HGB Conc 32.1 GM/DL (32-36); Mean Corpuscular Volume 91.2 FL (87-102); Monocytes % 5.2 % (1.7-12.7); Neutrophils % 63.4 % (38.7-73.9); Platelet Count 245 T/CUMM (130-400); Red Blood Count 3.96 MC/CUMM (3.8-5.5); Red Cell Distribution Width 13.7 % (9.3-17.3); White Blood Count 8.7 T/CUMM (4-12)
[2019-08-19] MEDS: ACYCLOVIR 5% OINT 15 GM TUBE TOP SCH ×4 (05:58→17:17)
[2019-08-19 06:23] LABS: Albumin 2.7 G/DL (3.4-5.0); Bilirubin,Total 0.6 MG/DL (0.2-1.0); Calcium 8.9 MG/DL (8.5-10.1); Osmolality,Calculated 280.8 MOS/KG (273-304); Total Protein 7.1 G/DL (6.4-8.3)
[2019-08-19] MEDS: CEFEPIME 1,000 MG in SODIUM CHLORIDE 0.9% 100 ML IV SCH ×3 (07:19→17:16)
[2019-08-19] MEDS: INSULIN REGULAR 100 UNIT/ML SUBCUT SCH ×4 (11:13→22:30)
[2019-08-19] MEDS: INSULIN LISPRO 100 UNIT/ML SUBCUT SCH ×2 (11:14→17:16)
[2019-08-19] MEDS: LORATADINE 10 MG TABLET PO SCH (11:14)
[2019-08-19] MEDS: MENTHOL/ZINC OXIDE OINT 71 GM JAR TOP SCH ×2 (11:14→22:31)
[2019-08-19] MEDS: PANTOPRAZOLE 40 MG TABLET PO SCH ×2 (11:15→22:31)
[2019-08-19] MEDS: GABAPENTIN 300 MG CAPSULE PO SCH ×3 (11:15→22:30)
[2019-08-19] MEDS: ZINC OXIDE PASTE 113 GM TUBE TOP SCH ×2 (11:15→22:31)
[2019-08-19] MEDS: SODIUM HYPOCHLORITE 0.25% IRRIG 473 ML BOTTLE TOP SCH (11:15)
[2019-08-19] MEDS: BENZONATATE 100 MG CAPSULE PO SCH ×3 (11:15→22:30)
[2019-08-19] MEDS: NYSTATIN CREAM 15 GM TUBE TOP SCH ×2 (11:15→22:33)
[2019-08-19] MEDS: POTASSIUM CHLORIDE 20 MEQ TABLET PO SCH (11:32)
[2019-08-19] MEDS ORDERED: POTASSIUM CHLORIDE 20 MEQ TABLET PO ONE (13:32)
[2019-08-19] MEDS: FUROSEMIDE 20 MG TABLET PO SCH (17:16)
[2019-08-19] MEDS: ASPIRIN EC 81 MG TABLET PO SCH (17:16)
[2019-08-19] MEDS: MAGNESIUM SULF RIDER 2 GM in PREMIX 1 EACH IV PRN (17:17)
[2019-08-19] MEDS: INSULIN GLARGINE 100 UNIT/ML SUBCUT SCH (22:28)
[2019-08-19] MEDS: ATORVASTATIN 20 MG TABLET PO SCH (22:31)
[2019-08-20] MEDS: ACYCLOVIR 5% OINT 15 GM TUBE TOP SCH ×6 (00:40→21:29)
[2019-08-20] MEDS: CEFEPIME 1,000 MG in SODIUM CHLORIDE 0.9% 100 ML IV SCH ×5 (00:40→23:38)
[2019-08-20] MEDS: ALBUTEROL/IPRATROPIUM 3 ML NEB RESP TX SCH ×4 (00:44→20:10)
[2019-08-20] MEDS: oxyCODONE/ACETAMINOPHEN 5-325 MG TABLET PO PRN ×3 (01:05→23:37)
[2019-08-20 06:11] LABS: Basophils # 0.1 10*3/uL (0.0-0.2); Basophils % 0.6 % (0.0-0.8); Eosinophils % 0.1 % (0.00-10.9); Hematocrit 37.9 VOL% (35.7-47.0); Hemoglobin 12.4 GM/DL (12.0-16.0); Immature Granulocytes % 5.1 %; Immature Granulocytes Absolute 0.39 #; Lymphocytes # 2.6 10*3/uL (1.4-4.0); Lymphocytes % 33.5 % (21.3-54.2); Mean Corpuscular HGB Conc 32.7 GM/DL (32-36); Mean Corpuscular Volume 89.6 FL (87-102); Mean Platelet Volume 8.1 FL (9.6-12.0); Monocytes % 5.3 % (1.7-12.7); Neutrophils % 55.4 % (38.7-73.9); Platelet Count 253 T/CUMM (130-400); Red Blood Count 4.23 MC/CUMM (3.8-5.5); White Blood Count 7.7 T/CUMM (4-12)
[2019-08-20 06:40] LABS: Band Neutrophils 2 % (0-10); Lymphocytes 32 % (20-55); Platelet Estimate Normal; Segmented Neutrophils 61 % (50-85); Total Cells Counted 100
[2019-08-20 06:54] LABS: Risk Ratio 4.76; VLDL CHOLESTEROL 55.4 MG/DL
[2019-08-20 07:04] LABS: Alanine Aminotransferase 18 U/L (13-56); Albumin 3.1 G/DL (3.4-5.0); Alkaline Phosphatase 106 U/L (45-117); Aspartate Amino Transferase 12 U/L (0-37); Bilirubin,Total < 0.39 MG/DL (0.2-1.0); Blood Urea Nitrogen 19 MG/DL (7-18); Calcium 9.1 MG/DL (8.5-10.1); Estimated Glom Filtration Rate 116 ML/MIN; Glucose 255 MG/DL (74-106); Osmolality,Calculated 285.7 MOS/KG (273-304); Total Protein 7.7 G/DL (6.4-8.3)
[2019-08-20] MEDS: INSULIN REGULAR 100 UNIT/ML SUBCUT SCH ×4 (09:15→23:41)
[2019-08-20] MEDS: PANTOPRAZOLE 40 MG TABLET PO SCH ×2 (09:16→21:27)
[2019-08-20] MEDS: FUROSEMIDE 20 MG TABLET PO SCH (09:16)
[2019-08-20] MEDS: POTASSIUM CHLORIDE 20 MEQ TABLET PO SCH (09:16)
[2019-08-20] MEDS: ASPIRIN EC 81 MG TABLET PO SCH (09:16)
[2019-08-20] MEDS: GABAPENTIN 300 MG CAPSULE PO SCH ×3 (09:16→21:41)
[2019-08-20] MEDS: BENZONATATE 100 MG CAPSULE PO SCH ×3 (09:17→21:27)
[2019-08-20] MEDS: LORATADINE 10 MG TABLET PO SCH (09:17)
[2019-08-20] MEDS: VANCOMYCIN INJ 1,500 MG in SODIUM CHLORIDE 0.9% 500 ML IV SCH ×2 (09:19→21:22)
[2019-08-20] MEDS: NYSTATIN CREAM 15 GM TUBE TOP SCH ×2 (09:21→21:29)
[2019-08-20] MEDS: ZINC OXIDE PASTE 113 GM TUBE TOP SCH ×2 (09:21→21:29)
[2019-08-20] MEDS: MENTHOL/ZINC OXIDE OINT 71 GM JAR TOP SCH ×2 (09:21→21:29)
[2019-08-20] MEDS: SODIUM HYPOCHLORITE 0.25% IRRIG 473 ML BOTTLE TOP SCH (09:21)
[2019-08-20] MEDS: MAGNESIUM SULF RIDER 2 GM in PREMIX 1 EACH IV PRN (09:23)
[2019-08-20] MEDS: HYDROmorphone 2 MG/1 ML VIAL IV PRN ×3 (09:39→21:18)
[2019-08-20] MEDS: INSULIN LISPRO 100 UNIT/ML SUBCUT SCH ×2 (10:00→18:11)
[2019-08-20] MEDS: INSULIN GLARGINE 100 UNIT/ML SUBCUT SCH (21:26)
[2019-08-20] MEDS: ATORVASTATIN 20 MG TABLET PO SCH (21:27)
[2019-08-21] MEDS: ALBUTEROL/IPRATROPIUM 3 ML NEB RESP TX SCH ×4 (01:21→19:06)
[2019-08-21] MEDS: HYDROmorphone 2 MG/1 ML VIAL IV PRN ×4 (04:06→15:47)
[2019-08-21 05:49] LABS: Albumin 3.1 G/DL (3.4-5.0); Bilirubin,Total 0.9 MG/DL (0.2-1.0); Calcium 9.5 MG/DL (8.5-10.1); Osmolality,Calculated 285.1 MOS/KG (273-304); Total Protein 7.7 G/DL (6.4-8.3)
[2019-08-21] MEDS: CEFEPIME 1,000 MG in SODIUM CHLORIDE 0.9% 100 ML IV SCH ×3 (06:45→18:11)
[2019-08-21] MEDS: ACYCLOVIR 5% OINT 15 GM TUBE TOP SCH ×5 (07:35→22:08)
[2019-08-21] MEDS: INSULIN REGULAR 100 UNIT/ML SUBCUT SCH ×4 (08:14→21:58)
[2019-08-21] MEDS: INSULIN LISPRO 100 UNIT/ML SUBCUT SCH ×2 (08:18→18:12)
[2019-08-21] MEDS: LORATADINE 10 MG TABLET PO SCH (08:19)
[2019-08-21] MEDS: ASPIRIN EC 81 MG TABLET PO SCH (08:19)
[2019-08-21] MEDS: MENTHOL/ZINC OXIDE OINT 71 GM JAR TOP SCH ×2 (08:19→22:08)
[2019-08-21] MEDS: ZINC OXIDE PASTE 113 GM TUBE TOP SCH ×2 (08:20→22:08)
[2019-08-21] MEDS: NYSTATIN CREAM 15 GM TUBE TOP SCH ×2 (08:20→22:08)
[2019-08-21] MEDS: POTASSIUM CHLORIDE 20 MEQ TABLET PO SCH (08:20)
[2019-08-21] MEDS: GABAPENTIN 300 MG CAPSULE PO SCH ×3 (08:20→21:58)
[2019-08-21] MEDS: SODIUM HYPOCHLORITE 0.25% IRRIG 473 ML BOTTLE TOP SCH (08:20)
[2019-08-21] MEDS: BENZONATATE 100 MG CAPSULE PO SCH ×3 (08:21→22:56)
[2019-08-21] MEDS: PANTOPRAZOLE 40 MG TABLET PO SCH ×2 (08:21→21:58)
[2019-08-21] MEDS: FUROSEMIDE 20 MG TABLET PO SCH (08:22)
[2019-08-21] MEDS ORDERED: LIDOCAINE 2% 5 ML VIAL ONE ×2 (09:21→09:27)
[2019-08-21] MEDS ORDERED: MIDAZOLAM 2 MG/2 ML VIAL ONE (09:21)
[2019-08-21] MEDS ORDERED: SEVOFLURANE 1 UNIT/15 MINUTE INH ONE (09:21)
[2019-08-21] MEDS ORDERED: fentaNYL 100 MCG/2 ML VIAL ONE ×2 (09:21→09:44)
[2019-08-21] MEDS ORDERED: ONDANSETRON 4 MG/2 ML VIAL ONE ×2 (09:22→09:24)
[2019-08-21] MEDS ORDERED: PROPOFOL 200 MG/20 ML VIAL IV ONE (09:22)
[2019-08-21] MEDS ORDERED: DEXAMETHASONE 4 MG/1 ML VIAL ONE ×2 (09:22→09:28)
[2019-08-21] MEDS ORDERED: SODIUM CHLORIDE 0.9% 1,000 ML IV ONE (09:23)
[2019-08-21] MEDS ORDERED: HYDROmorphone 2 MG/1 ML VIAL ONE (09:23)
[2019-08-21] MEDS ORDERED: PHENYLEPHRINE 1 MG/10 ML SYRINGE IV ONE (09:23)
[2019-08-21] MEDS ORDERED: KETOROLAC 30 MG/1 ML VIAL ONE (09:23)
[2019-08-21] MEDS ORDERED: ONDANSETRON 4 MG/2 ML VIAL IV PRN (09:25)
[2019-08-21] MEDS ORDERED: ROPIVACAINE 0.5% 30 ML VIAL ONE (09:27)
[2019-08-21] MEDS ORDERED: fentaNYL 100 MCG/2 ML VIAL IV ONE (09:45)
[2019-08-21] MEDS ORDERED: LORazepam 2 MG/1 ML VIAL IV ONE (09:52)
[2019-08-21] MEDS ORDERED: LORazepam 2 MG/1 ML VIAL ONE (09:55)
[2019-08-21] MEDS: VANCOMYCIN INJ 1,500 MG in SODIUM CHLORIDE 0.9% 500 ML IV SCH (11:22)
[2019-08-21] MEDS: oxyCODONE/ACETAMINOPHEN 5-325 MG TABLET PO PRN ×2 (18:15→22:55)
[2019-08-21] MEDS: ATORVASTATIN 20 MG TABLET PO SCH (21:58)
[2019-08-21] MEDS: INSULIN GLARGINE 100 UNIT/ML SUBCUT SCH (21:59)
[2019-08-22] MEDS: ALBUTEROL/IPRATROPIUM 3 ML NEB RESP TX SCH ×4 (00:47→19:13)
[2019-08-22] MEDS: CEFEPIME 1,000 MG in SODIUM CHLORIDE 0.9% 100 ML IV SCH ×4 (01:18→20:40)
[2019-08-22] MEDS: HYDROmorphone 2 MG/1 ML VIAL IV PRN ×4 (01:20→17:21)
[2019-08-22] MEDS: VANCOMYCIN INJ 1,500 MG in SODIUM CHLORIDE 0.9% 500 ML IV SCH ×2 (02:20→14:57)
[2019-08-22 04:46] LABS: Albumin 3.2 G/DL (3.4-5.0); Bilirubin,Total 0.4 MG/DL (0.2-1.0); Calcium 8.8 MG/DL (8.5-10.1); Osmolality,Calculated 286.5 MOS/KG (273-304); Total Protein 7.5 G/DL (6.4-8.3)
[2019-08-22] MEDS: ACYCLOVIR 5% OINT 15 GM TUBE TOP SCH ×5 (06:09→22:03)
[2019-08-22] MEDS ORDERED: MAGNESIUM SULF RIDER 2 GM in PREMIX 1 EACH IV PRN (09:41)
[2019-08-22] MEDS: POTASSIUM CHLORIDE 20 MEQ TABLET PO SCH (09:43)
[2019-08-22] MEDS: PANTOPRAZOLE 40 MG TABLET PO SCH ×2 (09:43→20:26)
[2019-08-22] MEDS: LORATADINE 10 MG TABLET PO SCH (09:43)
[2019-08-22] MEDS: FUROSEMIDE 20 MG TABLET PO SCH (09:43)
[2019-08-22] MEDS: GABAPENTIN 300 MG CAPSULE PO SCH ×3 (09:44→20:24)
[2019-08-22] MEDS: BENZONATATE 100 MG CAPSULE PO SCH ×3 (09:44→22:02)
[2019-08-22] MEDS: ASPIRIN EC 81 MG TABLET PO SCH (09:44)
[2019-08-22] MEDS: MENTHOL/ZINC OXIDE OINT 71 GM JAR TOP SCH ×2 (09:45→20:31)
[2019-08-22] MEDS: INSULIN LISPRO 100 UNIT/ML SUBCUT SCH ×2 (09:45→17:21)
[2019-08-22] MEDS: INSULIN REGULAR 100 UNIT/ML SUBCUT SCH ×4 (09:45→20:42)
[2019-08-22] MEDS: NYSTATIN CREAM 15 GM TUBE TOP SCH ×2 (09:46→20:42)
[2019-08-22] MEDS: SODIUM HYPOCHLORITE 0.25% IRRIG 473 ML BOTTLE TOP SCH (09:46)
[2019-08-22] MEDS: ZINC OXIDE PASTE 113 GM TUBE TOP SCH ×2 (09:46→20:31)
[2019-08-22 10:38] LABS: Basophils % 0.3 % (0.0-0.8); Eosinophils % 0.1 % (0.00-10.9); Hematocrit 35.2 VOL% (35.7-47.0); Hemoglobin 11.3 GM/DL (12.0-16.0); Immature Granulocytes Absolute 0.21 #; Lymphocytes # 2.9 10*3/uL (1.4-4.0); Lymphocytes % 27.2 % (21.3-54.2); Mean Corpuscular HGB Conc 32.1 GM/DL (32-36); Mean Corpuscular Volume 91.9 FL (87-102); Mean Platelet Volume 8.4 FL (9.6-12.0); Monocytes % 5.3 % (1.7-12.7); Neutrophils % 65.1 % (38.7-73.9); Platelet Count 247 T/CUMM (130-400); Red Blood Count 3.83 MC/CUMM (3.8-5.5); Red Cell Distribution Width 14.1 % (9.3-17.3); White Blood Count 10.7 T/CUMM (4-12)
[2019-08-22] MEDS: oxyCODONE/ACETAMINOPHEN 5-325 MG TABLET PO PRN ×2 (14:00→20:25)
[2019-08-22] MEDS: glyBURIDE 5 MG TABLET PO SCH (17:21)
[2019-08-22] MEDS: ATORVASTATIN 20 MG TABLET PO SCH (20:25)
[2019-08-22] MEDS: INSULIN GLARGINE 100 UNIT/ML SUBCUT SCH (20:42)
[2019-08-22] MEDS: VANCOMYCIN INJ 1,250 MG in SODIUM CHLORIDE 0.9% 250 ML IV SCH (23:59)
[2019-08-23] MEDS: HYDROmorphone 2 MG/1 ML VIAL IV PRN ×4 (00:02→21:02)
[2019-08-23] MEDS: ALBUTEROL/IPRATROPIUM 3 ML NEB RESP TX SCH ×4 (00:54→19:28)
[2019-08-23 05:56] LABS: Basophils # 0.1 10*3/uL (0.0-0.2); Basophils % 0.5 % (0.0-0.8); Eosinophils % 0.1 % (0.00-10.9); Hematocrit 35.9 VOL% (35.7-47.0); Hemoglobin 11.5 GM/DL (12.0-16.0); Immature Granulocytes % 2.3 %; Immature Granulocytes Absolute 0.25 #; Lymphocytes # 3.7 10*3/uL (1.4-4.0); Lymphocytes % 34.8 % (21.3-54.2); Mean Corpuscular Volume 92.5 FL (87-102); Mean Platelet Volume 8.4 FL (9.6-12.0); Monocytes % 4.2 % (1.7-12.7); Neutrophils % 58.1 % (38.7-73.9); Platelet Count 243 T/CUMM (130-400); Red Blood Count 3.88 MC/CUMM (3.8-5.5); Red Cell Distribution Width 14.6 % (9.3-17.3); White Blood Count 10.7 T/CUMM (4-12)
[2019-08-23] MEDS: ACYCLOVIR 5% OINT 15 GM TUBE TOP SCH ×5 (06:00→21:16)
[2019-08-23 06:23] LABS: Calcium 8.5 MG/DL (8.5-10.1); Osmolality,Calculated 281.7 MOS/KG (273-304)
[2019-08-23] MEDS ORDERED: ROPIVACAINE 0.5% 30 ML VIAL ONE (07:42)
[2019-08-23] MEDS ORDERED: LIDOCAINE 1% 5 ML VIAL ONE (07:42)
[2019-08-23] MEDS ORDERED: DEXAMETHASONE 4 MG/1 ML VIAL ONE ×2 (07:42→10:02)
[2019-08-23] MEDS: INSULIN REGULAR 100 UNIT/ML SUBCUT SCH ×4 (07:53→21:01)
[2019-08-23] MEDS: VANCOMYCIN INJ 1,250 MG in SODIUM CHLORIDE 0.9% 250 ML IV SCH (08:00)
[2019-08-23] MEDS: glyBURIDE 5 MG TABLET PO SCH ×2 (08:33→16:54)
[2019-08-23] MEDS: MENTHOL/ZINC OXIDE OINT 71 GM JAR TOP SCH ×2 (08:34→21:05)
[2019-08-23] MEDS: LORATADINE 10 MG TABLET PO SCH (08:34)
[2019-08-23] MEDS: ASPIRIN EC 81 MG TABLET PO SCH (08:34)
[2019-08-23] MEDS: INSULIN LISPRO 100 UNIT/ML SUBCUT SCH ×2 (08:34→16:54)
[2019-08-23] MEDS: SODIUM HYPOCHLORITE 0.25% IRRIG 473 ML BOTTLE TOP SCH (08:34)
[2019-08-23] MEDS: ZINC OXIDE PASTE 113 GM TUBE TOP SCH ×2 (08:34→21:05)
[2019-08-23] MEDS: BENZONATATE 100 MG CAPSULE PO SCH ×3 (08:35→21:00)
[2019-08-23] MEDS: PANTOPRAZOLE 40 MG TABLET PO SCH ×2 (08:35→21:00)
[2019-08-23] MEDS: FUROSEMIDE 20 MG TABLET PO SCH (08:35)
[2019-08-23] MEDS: NYSTATIN CREAM 15 GM TUBE TOP SCH ×2 (08:35→21:05)
[2019-08-23] MEDS: GABAPENTIN 300 MG CAPSULE PO SCH ×3 (08:35→21:15)
[2019-08-23] MEDS: POTASSIUM CHLORIDE 20 MEQ TABLET PO SCH (08:35)
[2019-08-23] MEDS ORDERED: fentaNYL 100 MCG/2 ML VIAL ONE (10:01)
[2019-08-23] MEDS ORDERED: MIDAZOLAM 2 MG/2 ML VIAL ONE (10:01)
[2019-08-23] MEDS ORDERED: SEVOFLURANE 1 UNIT/15 MINUTE INH ONE (10:01)
[2019-08-23] MEDS ORDERED: LIDOCAINE 2% 5 ML VIAL ONE (10:01)
[2019-08-23] MEDS ORDERED: PROPOFOL 200 MG/20 ML VIAL IV ONE (10:01)
[2019-08-23] MEDS ORDERED: PHENYLEPHRINE 1 MG/10 ML SYRINGE IV ONE (10:02)
[2019-08-23] MEDS ORDERED: ONDANSETRON 4 MG/2 ML VIAL ONE (10:02)
[2019-08-23] MEDS: CEFEPIME 1,000 MG in SODIUM CHLORIDE 0.9% 100 ML IV SCH ×3 (11:09→19:02)
[2019-08-23] MEDS: oxyCODONE/ACETAMINOPHEN 5-325 MG TABLET PO PRN ×2 (18:37→23:40)
[2019-08-23] MEDS: ATORVASTATIN 20 MG TABLET PO SCH (21:00)
[2019-08-23] MEDS: INSULIN GLARGINE 100 UNIT/ML SUBCUT SCH (21:00)
[2019-08-24] MEDS: ALBUTEROL/IPRATROPIUM 3 ML NEB RESP TX SCH ×4 (01:28→20:00)
[2019-08-24] MEDS: HYDROmorphone 2 MG/1 ML VIAL IV PRN ×4 (01:31→20:46)
[2019-08-24] MEDS: CEFEPIME 1,000 MG in SODIUM CHLORIDE 0.9% 100 ML IV SCH ×4 (01:39→21:08)
[2019-08-24] MEDS: ACYCLOVIR 5% OINT 15 GM TUBE TOP SCH ×5 (06:55→22:00)
[2019-08-24 08:37] LABS: Basophils % 0.3 % (0.0-0.8); Eosinophils % 0.2 % (0.00-10.9); Hematocrit 33.6 VOL% (35.7-47.0); Hemoglobin 10.9 GM/DL (12.0-16.0); Immature Granulocytes % 1.4 %; Immature Granulocytes Absolute 0.16 #; Lymphocytes # 3.6 10*3/uL (1.4-4.0); Lymphocytes % 31.2 % (21.3-54.2); Mean Corpuscular HGB Conc 32.4 GM/DL (32-36); Mean Corpuscular Volume 91.6 FL (87-102); Mean Platelet Volume 8.5 FL (9.6-12.0); Monocytes % 5.5 % (1.7-12.7); Neutrophils % 61.4 % (38.7-73.9); Platelet Count 209 T/CUMM (130-400); Red Blood Count 3.67 MC/CUMM (3.8-5.5); Red Cell Distribution Width 14.3 % (9.3-17.3); White Blood Count 11.5 T/CUMM (4-12)
[2019-08-24 08:55] LABS: Alanine Aminotransferase 20 U/L (13-56); Alkaline Phosphatase 75 U/L (45-117); Aspartate Amino Transferase 12 U/L (0-37); Bilirubin,Total < 0.39 MG/DL (0.2-1.0); Blood Urea Nitrogen 21 MG/DL (7-18); Calcium 8.6 MG/DL (8.5-10.1); Estimated Glom Filtration Rate 143 ML/MIN; Glucose 242 MG/DL (74-106); Osmolality,Calculated 283.8 MOS/KG (273-304)
[2019-08-24] MEDS: oxyCODONE/ACETAMINOPHEN 5-325 MG TABLET PO PRN ×2 (10:06→14:48)
[2019-08-24] MEDS: PANTOPRAZOLE 40 MG TABLET PO SCH ×2 (10:08→20:46)
[2019-08-24] MEDS: glyBURIDE 5 MG TABLET PO SCH ×2 (10:08→18:07)
[2019-08-24] MEDS: BENZONATATE 100 MG CAPSULE PO SCH ×3 (10:08→20:46)
[2019-08-24] MEDS: LORATADINE 10 MG TABLET PO SCH (10:09)
[2019-08-24] MEDS: INSULIN REGULAR 100 UNIT/ML SUBCUT SCH ×4 (10:09→20:55)
[2019-08-24] MEDS: FUROSEMIDE 20 MG TABLET PO SCH (10:09)
[2019-08-24] MEDS: ASPIRIN EC 81 MG TABLET PO SCH (10:09)
[2019-08-24] MEDS: GABAPENTIN 300 MG CAPSULE PO SCH ×3 (10:09→20:45)
[2019-08-24] MEDS: POTASSIUM CHLORIDE 20 MEQ TABLET PO SCH (10:09)
[2019-08-24] MEDS: INSULIN LISPRO 100 UNIT/ML SUBCUT SCH ×2 (10:10→18:08)
[2019-08-24] MEDS: MENTHOL/ZINC OXIDE OINT 71 GM JAR TOP SCH ×2 (10:12→20:48)
[2019-08-24] MEDS: NYSTATIN CREAM 15 GM TUBE TOP SCH ×2 (10:13→20:49)
[2019-08-24] MEDS: SODIUM HYPOCHLORITE 0.25% IRRIG 473 ML BOTTLE TOP SCH (10:13)
[2019-08-24] MEDS: ZINC OXIDE PASTE 113 GM TUBE TOP SCH ×2 (10:13→20:50)
[2019-08-24] MEDS ORDERED: KETOROLAC 30 MG/1 ML VIAL IV ONE (10:37)
[2019-08-24] MEDS: KETOROLAC 30 MG/1 ML VIAL IV SCH ×2 (18:07→22:54)
[2019-08-24] MEDS: ATORVASTATIN 20 MG TABLET PO SCH (20:46)
[2019-08-24] MEDS: INSULIN GLARGINE 100 UNIT/ML SUBCUT SCH (20:57)
[2019-08-25] MEDS: ALBUTEROL/IPRATROPIUM 3 ML NEB RESP TX SCH ×4 (02:08→21:20)
[2019-08-25] MEDS: oxyCODONE/ACETAMINOPHEN 5-325 MG TABLET PO PRN ×3 (02:52→18:06)
[2019-08-25] MEDS: CEFEPIME 1,000 MG in SODIUM CHLORIDE 0.9% 100 ML IV SCH ×4 (02:52→21:44)
[2019-08-25] MEDS: HYDROmorphone 2 MG/1 ML VIAL IV PRN ×4 (04:39→21:38)
[2019-08-25 05:46] LABS: Basophils % 0.3 % (0.0-0.8); Eosinophils % 0.2 % (0.00-10.9); Hematocrit 32.4 VOL% (35.7-47.0); Hemoglobin 10.5 GM/DL (12.0-16.0); Immature Granulocytes % 1.5 %; Immature Granulocytes Absolute 0.19 #; Lymphocytes # 3.2 10*3/uL (1.4-4.0); Lymphocytes % 24.9 % (21.3-54.2); Mean Corpuscular HGB Conc 32.4 GM/DL (32-36); Mean Platelet Volume 8.6 FL (9.6-12.0); Monocytes % 5.2 % (1.7-12.7); Neutrophils % 67.9 % (38.7-73.9); Platelet Count 244 T/CUMM (130-400); Red Blood Count 3.56 MC/CUMM (3.8-5.5); Red Cell Distribution Width 14.6 % (9.3-17.3)
[2019-08-25] MEDS: ACYCLOVIR 5% OINT 15 GM TUBE TOP SCH ×5 (06:27→21:50)
[2019-08-25] MEDS: KETOROLAC 30 MG/1 ML VIAL IV SCH ×4 (06:28→23:05)
[2019-08-25 06:29] LABS: Calcium 8.6 MG/DL (8.5-10.1); Osmolality,Calculated 288.1 MOS/KG (273-304)
[2019-08-25] MEDS: glyBURIDE 5 MG TABLET PO SCH ×2 (08:03→18:06)
[2019-08-25] MEDS: BENZONATATE 100 MG CAPSULE PO SCH ×3 (08:03→21:44)
[2019-08-25] MEDS: GABAPENTIN 300 MG CAPSULE PO SCH ×3 (08:13→21:44)
[2019-08-25] MEDS: ASPIRIN EC 81 MG TABLET PO SCH (08:13)
[2019-08-25] MEDS: LORATADINE 10 MG TABLET PO SCH (08:14)
[2019-08-25] MEDS: INSULIN LISPRO 100 UNIT/ML SUBCUT SCH ×2 (08:14→18:08)
[2019-08-25] MEDS: POTASSIUM CHLORIDE 20 MEQ TABLET PO SCH (08:14)
[2019-08-25] MEDS: FUROSEMIDE 20 MG TABLET PO SCH (08:14)
[2019-08-25] MEDS: INSULIN REGULAR 100 UNIT/ML SUBCUT SCH ×4 (08:15→21:50)
[2019-08-25] MEDS: PANTOPRAZOLE 40 MG TABLET PO SCH ×2 (08:15→21:45)
[2019-08-25] MEDS: NYSTATIN CREAM 15 GM TUBE TOP SCH ×2 (13:57→21:50)
[2019-08-25] MEDS: SODIUM HYPOCHLORITE 0.25% IRRIG 473 ML BOTTLE TOP SCH (13:57)
[2019-08-25] MEDS: ZINC OXIDE PASTE 113 GM TUBE TOP SCH ×2 (13:57→21:50)
[2019-08-25] MEDS: MENTHOL/ZINC OXIDE OINT 71 GM JAR TOP SCH ×2 (13:57→21:50)
[2019-08-25] MEDS: ATORVASTATIN 20 MG TABLET PO SCH (21:44)
[2019-08-25] MEDS: INSULIN GLARGINE 100 UNIT/ML SUBCUT SCH (21:44)
[2019-08-26] MEDS: oxyCODONE/ACETAMINOPHEN 5-325 MG TABLET PO PRN (00:51)
[2019-08-26] MEDS: ALBUTEROL/IPRATROPIUM 3 ML NEB RESP TX SCH ×4 (02:01→23:22)
[2019-08-26] MEDS: CEFEPIME 1,000 MG in SODIUM CHLORIDE 0.9% 100 ML IV SCH ×2 (02:10→20:20)
[2019-08-26] MEDS: HYDROmorphone 2 MG/1 ML VIAL IV PRN ×4 (04:10→21:50)
[2019-08-26] MEDS: KETOROLAC 30 MG/1 ML VIAL IV SCH ×3 (05:43→21:56)
[2019-08-26] MEDS: ACYCLOVIR 5% OINT 15 GM TUBE TOP SCH ×5 (07:02→23:06)
[2019-08-26] MEDS: INSULIN REGULAR 100 UNIT/ML SUBCUT SCH ×4 (10:03→21:56)
[2019-08-26] MEDS: GABAPENTIN 300 MG CAPSULE PO SCH ×3 (10:03→21:53)
[2019-08-26] MEDS: PANTOPRAZOLE 40 MG TABLET PO SCH ×2 (10:04→21:53)
[2019-08-26] MEDS: ASPIRIN EC 81 MG TABLET PO SCH (10:04)
[2019-08-26] MEDS: LORATADINE 10 MG TABLET PO SCH (10:04)
[2019-08-26] MEDS: FUROSEMIDE 20 MG TABLET PO SCH (10:04)
[2019-08-26] MEDS: POTASSIUM CHLORIDE 20 MEQ TABLET PO SCH (10:04)
[2019-08-26] MEDS: glyBURIDE 5 MG TABLET PO SCH ×2 (10:04→17:03)
[2019-08-26] MEDS: BENZONATATE 100 MG CAPSULE PO SCH ×3 (10:04→21:53)
[2019-08-26] MEDS: SODIUM HYPOCHLORITE 0.25% IRRIG 473 ML BOTTLE TOP SCH (10:07)
[2019-08-26] MEDS: ZINC OXIDE PASTE 113 GM TUBE TOP SCH ×2 (10:07→21:58)
[2019-08-26] MEDS: NYSTATIN CREAM 15 GM TUBE TOP SCH ×2 (10:08→21:58)
[2019-08-26] MEDS: MENTHOL/ZINC OXIDE OINT 71 GM JAR TOP SCH ×2 (10:08→21:58)
[2019-08-26] MEDS: INSULIN LISPRO 100 UNIT/ML SUBCUT SCH ×2 (10:22→17:03)
[2019-08-26] MEDS: traZODone 50 MG TABLET PO SCH (21:53)
[2019-08-26] MEDS: ATORVASTATIN 20 MG TABLET PO SCH (21:53)
[2019-08-26] MEDS: DOCUSATE SODIUM 100 MG CAPSULE PO SCH (21:53)
[2019-08-26] MEDS: INSULIN GLARGINE 100 UNIT/ML SUBCUT SCH (21:53)
[2019-08-27] MEDS: ALBUTEROL/IPRATROPIUM 3 ML NEB RESP TX SCH ×4 (01:10→19:16)
[2019-08-27] MEDS: KETOROLAC 30 MG/1 ML VIAL IV SCH ×4 (01:35→23:43)
[2019-08-27] MEDS: ACYCLOVIR 5% OINT 15 GM TUBE TOP SCH ×5 (05:50→23:09)
[2019-08-27] MEDS: HYDROmorphone 2 MG/1 ML VIAL IV PRN ×4 (06:20→22:31)
[2019-08-27] MEDS: ASPIRIN EC 81 MG TABLET PO SCH (08:49)
[2019-08-27] MEDS: DOCUSATE SODIUM 100 MG CAPSULE PO SCH ×2 (08:49→22:37)
[2019-08-27] MEDS: GABAPENTIN 300 MG CAPSULE PO SCH ×3 (08:49→22:37)
[2019-08-27] MEDS: glyBURIDE 5 MG TABLET PO SCH ×2 (08:50→16:28)
[2019-08-27] MEDS: LORATADINE 10 MG TABLET PO SCH (08:50)
[2019-08-27] MEDS: PANTOPRAZOLE 40 MG TABLET PO SCH ×2 (08:50→22:36)
[2019-08-27] MEDS: BENZONATATE 100 MG CAPSULE PO SCH ×3 (08:50→22:37)
[2019-08-27] MEDS: FUROSEMIDE 20 MG TABLET PO SCH (08:50)
[2019-08-27] MEDS: POTASSIUM CHLORIDE 20 MEQ TABLET PO SCH (08:51)
[2019-08-27] MEDS: INSULIN REGULAR 100 UNIT/ML SUBCUT SCH ×4 (08:51→22:35)
[2019-08-27] MEDS: INSULIN LISPRO 100 UNIT/ML SUBCUT SCH ×2 (08:51→16:47)
[2019-08-27] MEDS: ZINC OXIDE PASTE 113 GM TUBE TOP SCH ×2 (09:01→22:38)
[2019-08-27] MEDS: MENTHOL/ZINC OXIDE OINT 71 GM JAR TOP SCH ×2 (09:02→23:08)
[2019-08-27] MEDS: NYSTATIN CREAM 15 GM TUBE TOP SCH ×2 (09:02→23:09)
[2019-08-27] MEDS: SODIUM HYPOCHLORITE 0.25% IRRIG 473 ML BOTTLE TOP SCH (09:02)
[2019-08-27] MEDS: oxyCODONE/ACETAMINOPHEN 5-325 MG TABLET PO PRN ×3 (09:03→18:38)
[2019-08-27] MEDS: INSULIN GLARGINE 100 UNIT/ML SUBCUT SCH (22:35)
[2019-08-27] MEDS: ATORVASTATIN 20 MG TABLET PO SCH (22:36)
[2019-08-27] MEDS: traZODone 50 MG TABLET PO SCH (22:36)
[2019-08-28] MEDS: ALBUTEROL/IPRATROPIUM 3 ML NEB RESP TX SCH ×3 (00:55→13:47)
[2019-08-28] MEDS: oxyCODONE/ACETAMINOPHEN 5-325 MG TABLET PO PRN ×2 (01:30→09:38)
[2019-08-28] MEDS: KETOROLAC 30 MG/1 ML VIAL IV SCH ×2 (03:34→09:43)
[2019-08-28 05:36] LABS: Basophils % 0.2 % (0.0-0.8); Eosinophils # 0.1 10*3/uL (0.0-0.87); Eosinophils % 1.2 % (0.00-10.9); Hematocrit 27.9 VOL% (35.7-47.0); Immature Granulocytes % 0.9 %; Immature Granulocytes Absolute 0.07 #; Lymphocytes # 2.5 10*3/uL (1.4-4.0); Lymphocytes % 31.7 % (21.3-54.2); Mean Corpuscular HGB Conc 32.3 GM/DL (32-36); Mean Corpuscular Volume 92.7 FL (87-102); Mean Platelet Volume 9.6 FL (9.6-12.0); Monocytes % 5.4 % (1.7-12.7); Neutrophils % 60.6 % (38.7-73.9); Platelet Count 201 T/CUMM (130-400); Red Blood Count 3.01 MC/CUMM (3.8-5.5); Red Cell Distribution Width 14.4 % (9.3-17.3)
[2019-08-28 05:57] LABS: Calcium 8.8 MG/DL (8.5-10.1); Hypochromasia 1+; Osmolality,Calculated 282.7 MOS/KG (273-304); Ovalocytes Slight
[2019-08-28 05:58] LABS: Platelet Estimate Adequate
[2019-08-28] MEDS: ACYCLOVIR 5% OINT 15 GM TUBE TOP SCH ×2 (06:17→10:37)
[2019-08-28] MEDS: HYDROmorphone 2 MG/1 ML VIAL IV PRN ×2 (07:34→11:58)
[2019-08-28] MEDS: FUROSEMIDE 20 MG TABLET PO SCH (09:36)
[2019-08-28] MEDS: glyBURIDE 5 MG TABLET PO SCH (09:36)
[2019-08-28] MEDS: DOCUSATE SODIUM 100 MG CAPSULE PO SCH (09:36)
[2019-08-28] MEDS: PANTOPRAZOLE 40 MG TABLET PO SCH (09:36)
[2019-08-28] MEDS: BENZONATATE 100 MG CAPSULE PO SCH (09:36)
[2019-08-28] MEDS: POTASSIUM CHLORIDE 20 MEQ TABLET PO SCH (09:36)
[2019-08-28] MEDS: ASPIRIN EC 81 MG TABLET PO SCH (09:36)
[2019-08-28] MEDS: LORATADINE 10 MG TABLET PO SCH (09:36)
[2019-08-28] MEDS: INSULIN LISPRO 100 UNIT/ML SUBCUT SCH (09:37)
[2019-08-28] MEDS: INSULIN REGULAR 100 UNIT/ML SUBCUT SCH ×2 (09:37→12:05)
[2019-08-28] MEDS: GABAPENTIN 300 MG CAPSULE PO SCH (09:37)
[2019-08-28] MEDS: MENTHOL/ZINC OXIDE OINT 71 GM JAR TOP SCH (10:36)
[2019-08-28] MEDS: NYSTATIN CREAM 15 GM TUBE TOP SCH (10:37)
[2019-08-28] MEDS: ZINC OXIDE PASTE 113 GM TUBE TOP SCH (10:37)
[2019-08-28] MEDS: SODIUM HYPOCHLORITE 0.25% IRRIG 473 ML BOTTLE TOP SCH (10:37)
[2019-08-28 12:10] VITALS: BP 107/57
== END 2019-08-28 14:55 | disposition hospice, home (50) | DRG 305 ==
LOC: N.ED 16:03 → N.EDINP 20:02 → N.3E 21:28 → N.ICU 08-13 07:31 → N.3E 08-17 18:27
PROVIDERS: ADMIT Family Medicine; ATTEND Family Medicine

== ENCOUNTER 2019-09-19 16:10 | Inpatient (IN) ==
[2019-09-19] MEDS ORDERED: HYDROmorphone 2 MG/1 ML VIAL IV PRN (16:33)
[2019-09-19] MEDS ORDERED: GLUCAGON 1 MG VIAL IM PRN (16:34)
[2019-09-19] MEDS ORDERED: DEXTROSE 50% 25 GM/50 ML VIAL IV PRN (16:34)
[2019-09-19 17:17] LABS: Basophils % 0.2 % (0.0-0.8); Eosinophils # 0.4 10*3/uL (0.0-0.87); Eosinophils % 3.2 % (0.00-10.9); Hemoglobin 13.3 GM/DL (12.0-16.0); Immature Granulocytes % 0.6 %; Immature Granulocytes Absolute 0.07 #; Lymphocytes # 3.1 10*3/uL (1.4-4.0); Lymphocytes % 25.4 % (21.3-54.2); Mean Corpuscular HGB Conc 34.1 GM/DL (32-36); Mean Corpuscular Volume 90.9 FL (87-102); Monocytes % 4.4 % (1.7-12.7); Neutrophils % 66.2 % (38.7-73.9); Platelet Count 227 T/CUMM (130-400); Red Blood Count 4.29 MC/CUMM (3.8-5.5); Red Cell Distribution Width 14.9 % (9.3-17.3); White Blood Count 12.1 T/CUMM (4-12)
[2019-09-19] MEDS ORDERED: INFLUENZA VIRUS VACCINE 0.5 ML SYRINGE IM ONE (17:25)
[2019-09-19 17:36] LABS: Alanine Aminotransferase 18 U/L (13-56); Albumin 3.4 G/DL (3.4-5.0); Alkaline Phosphatase 83 U/L (45-117); Aspartate Amino Transferase 7 U/L (0-37); Bilirubin,Total < 0.39 MG/DL (0.2-1.0); Blood Urea Nitrogen 18 MG/DL (7-18); Calcium 8.9 MG/DL (8.5-10.1); Estimated Glom Filtration Rate 115 ML/MIN; Glucose 453 MG/DL (74-106); Osmolality,Calculated 285.5 MOS/KG (273-304); Total Protein 7.8 G/DL (6.4-8.3)
[2019-09-19] MEDS: INSULIN LISPRO 100 UNIT/ML SUBCUT SCH ×2 (17:47→21:08)
[2019-09-19] MEDS: CEFEPIME 1,000 MG VIAL IM SCH (17:48)
[2019-09-19] MEDS: oxyCODONE/ACETAMINOPHEN 5-325 MG TABLET PO PRN ×2 (17:53→22:05)
[2019-09-19] MEDS: DOCUSATE SODIUM 100 MG CAPSULE PO SCH (21:05)
[2019-09-19] MEDS: traZODone 50 MG TABLET PO SCH (21:06)
[2019-09-19] MEDS: GABAPENTIN 600 MG TABLET PO SCH (21:06)
[2019-09-19] MEDS: INSULIN GLARGINE 100 UNIT/ML SUBCUT SCH (21:09)
[2019-09-19] MEDS: ENOXAPARIN 40 MG/0.4 ML SYRINGE SUBCUT SCH (21:11)
[2019-09-19 23:57] LABS: Apearance,Urine CLEAR (Clear); Bacteria,Urine Occasional /HPF (Few); Bilirubin,Urine Negative (Negative); Blood, Urine Negative (Negative); Glucose,Urine (UA) >=500 mg/dL (Negative); Ketones,Urine Negative (Negative); Nitrite,Urine Negative (Negative); Protein,Urine Negative; RBC,Urine 2 /HPF (0-4); Squamous Epithelial Cell,Urine Occasional /HPF (0-10); Urine Color Yellow (Yellow); Urine Specific Gravity 1.036 (1.001-1.035); Urine Urobilinogen < 2.0 EU/DL (0.2-1.0); WBC,Urine 2 /HPF (0-6)
[2019-09-20] MEDS: CEFEPIME 1,000 MG VIAL IM SCH (04:47)
[2019-09-20 05:11] LABS: Basophils % 0.2 % (0.0-0.8); Eosinophils # 0.3 10*3/uL (0.0-0.87); Eosinophils % 4.6 % (0.00-10.9); Hematocrit 34.4 VOL% (35.7-47.0); Hemoglobin 11.5 GM/DL (12.0-16.0); Immature Granulocytes % 0.5 %; Immature Granulocytes Absolute 0.03 #; Lymphocytes % 46.4 % (21.3-54.2); Mean Corpuscular HGB Conc 33.4 GM/DL (32-36); Mean Corpuscular Volume 92.7 FL (87-102); Mean Platelet Volume 9.1 FL (9.6-12.0); Monocytes % 5.4 % (1.7-12.7); Neutrophils % 42.9 % (38.7-73.9); Platelet Count 184 T/CUMM (130-400); Red Blood Count 3.71 MC/CUMM (3.8-5.5); Red Cell Distribution Width 14.8 % (9.3-17.3); White Blood Count 6.5 T/CUMM (4-12)
[2019-09-20 05:40] LABS: Bilirubin,Total 0.4 MG/DL (0.2-1.0); Calcium 8.4 MG/DL (8.5-10.1); Osmolality,Calculated 299.3 MOS/KG (273-304); Total Protein 6.8 G/DL (6.4-8.3)
[2019-09-20] MEDS: INSULIN LISPRO 100 UNIT/ML SUBCUT SCH ×6 (08:39→21:31)
[2019-09-20] MEDS: GABAPENTIN 600 MG TABLET PO SCH ×3 (10:10→21:29)
[2019-09-20] MEDS: PANTOPRAZOLE 40 MG TABLET PO SCH (10:11)
[2019-09-20] MEDS: DOCUSATE SODIUM 100 MG CAPSULE PO SCH ×2 (10:11→21:29)
[2019-09-20] MEDS: oxyCODONE/ACETAMINOPHEN 5-325 MG TABLET PO PRN ×3 (10:35→18:41)
[2019-09-20] MEDS ORDERED: CEFEPIME 1,000 MG VIAL IV SCH (10:41)
[2019-09-20] MEDS: CEFEPIME 1,000 MG in SODIUM CHLORIDE 0.9% 100 ML IV SCH ×3 (11:05→23:52)
[2019-09-20] MEDS: MENTHOL/ZINC OXIDE OINT 71 GM JAR TOP SCH ×2 (16:50→21:31)
[2019-09-20] MEDS: glyBURIDE 5 MG TABLET PO SCH (16:59)
[2019-09-20] MEDS: traZODone 50 MG TABLET PO SCH (21:30)
[2019-09-20] MEDS: INSULIN GLARGINE 100 UNIT/ML SUBCUT SCH (21:30)
[2019-09-20] MEDS: ENOXAPARIN 40 MG/0.4 ML SYRINGE SUBCUT SCH (21:30)
[2019-09-21] MEDS: oxyCODONE/ACETAMINOPHEN 5-325 MG TABLET PO PRN ×5 (00:37→22:12)
[2019-09-21 04:52] LABS: Basophils % 0.1 % (0.0-0.8); Eosinophils # 0.3 10*3/uL (0.0-0.87); Eosinophils % 3.4 % (0.00-10.9); Hematocrit 34.9 VOL% (35.7-47.0); Hemoglobin 11.8 GM/DL (12.0-16.0); Immature Granulocytes % 0.4 %; Immature Granulocytes Absolute 0.03 #; Lymphocytes # 2.9 10*3/uL (1.4-4.0); Lymphocytes % 37.4 % (21.3-54.2); Mean Corpuscular HGB Conc 33.8 GM/DL (32-36); Mean Corpuscular Volume 92.1 FL (87-102); Mean Platelet Volume 9.3 FL (9.6-12.0); Monocytes % 5.2 % (1.7-12.7); Neutrophils % 53.5 % (38.7-73.9); Platelet Count 191 T/CUMM (130-400); Red Blood Count 3.79 MC/CUMM (3.8-5.5); Red Cell Distribution Width 14.7 % (9.3-17.3); White Blood Count 7.6 T/CUMM (4-12)
[2019-09-21] MEDS: CEFEPIME 1,000 MG in SODIUM CHLORIDE 0.9% 100 ML IV SCH ×4 (04:54→23:13)
[2019-09-21 05:14] LABS: Alanine Aminotransferase 18 U/L (13-56); Albumin 2.8 G/DL (3.4-5.0); Alkaline Phosphatase 65 U/L (45-117); Aspartate Amino Transferase 10 U/L (0-37); Bilirubin,Total < 0.39 MG/DL (0.2-1.0); Blood Urea Nitrogen 23 MG/DL (7-18); Calcium 8.7 MG/DL (8.5-10.1); Estimated Glom Filtration Rate 145 ML/MIN; Glucose 168 MG/DL (74-106); Osmolality,Calculated 284.5 MOS/KG (273-304); Total Protein 6.7 G/DL (6.4-8.3)
[2019-09-21] MEDS: glyBURIDE 5 MG TABLET PO SCH ×2 (07:48→17:19)
[2019-09-21] MEDS: INSULIN LISPRO 100 UNIT/ML SUBCUT SCH ×6 (07:48→21:02)
[2019-09-21] MEDS: COLLAGENASE OINT 30 GM TUBE TOP SCH (08:00)
[2019-09-21] MEDS: CHLORHEXIDINE 4% SOLN 118 ML BOTTLE TOP SCH (08:00)
[2019-09-21] MEDS: DOCUSATE SODIUM 100 MG CAPSULE PO SCH ×2 (08:00→21:00)
[2019-09-21] MEDS: MENTHOL/ZINC OXIDE OINT 71 GM JAR TOP SCH ×2 (08:01→21:01)
[2019-09-21] MEDS: GABAPENTIN 600 MG TABLET PO SCH ×3 (09:23→21:01)
[2019-09-21] MEDS: PANTOPRAZOLE 40 MG TABLET PO SCH (11:18)
[2019-09-21] MEDS ORDERED: MAGNESIUM SULF RIDER 2 GM in PREMIX 1 EACH IV ONE (14:39)
[2019-09-21] MEDS ORDERED: POTASSIUM CHLORIDE 20 MEQ TABLET PO ONE (14:40)
[2019-09-21] MEDS: KETOROLAC 15 MG/1 ML VIAL IV SCH ×2 (15:21→20:54)
[2019-09-21] MEDS: ONDANSETRON 4 MG/2 ML VIAL IV PRN (20:57)
[2019-09-21] MEDS: traZODone 50 MG TABLET PO SCH (21:00)
[2019-09-21] MEDS: INSULIN GLARGINE 100 UNIT/ML SUBCUT SCH (21:01)
[2019-09-21] MEDS: ENOXAPARIN 40 MG/0.4 ML SYRINGE SUBCUT SCH (21:02)
[2019-09-21] MEDS: METOCLOPRAMIDE 5 MG TABLET PO ONE ×2 (22:35→23:11)
[2019-09-21] MEDS ORDERED: PROMETHAZINE 25 MG/1 ML VIAL IM ONE (23:00)
[2019-09-22] MEDS: KETOROLAC 15 MG/1 ML VIAL IV SCH ×4 (03:54→23:20)
[2019-09-22] MEDS: CEFEPIME 1,000 MG in SODIUM CHLORIDE 0.9% 100 ML IV SCH (04:00)
[2019-09-22 04:50] LABS: Basophils % 0.1 % (0.0-0.8); Eosinophils # 0.2 10*3/uL (0.0-0.87); Eosinophils % 2.5 % (0.00-10.9); Hematocrit 37.3 VOL% (35.7-47.0); Hemoglobin 12.4 GM/DL (12.0-16.0); Immature Granulocytes % 0.6 %; Immature Granulocytes Absolute 0.05 #; Lymphocytes % 25.4 % (21.3-54.2); Mean Corpuscular HGB Conc 33.2 GM/DL (32-36); Mean Platelet Volume 9.6 FL (9.6-12.0); Monocytes % 5.1 % (1.7-12.7); Neutrophils % 66.3 % (38.7-73.9); Platelet Count 162 T/CUMM (130-400); Red Blood Count 3.97 MC/CUMM (3.8-5.5); Red Cell Distribution Width 14.6 % (9.3-17.3); White Blood Count 7.9 T/CUMM (4-12)
[2019-09-22 05:18] LABS: Bilirubin,Total 0.4 MG/DL (0.2-1.0); Calcium 8.7 MG/DL (8.5-10.1); Total Protein 6.7 G/DL (6.4-8.3)
[2019-09-22] MEDS: ONDANSETRON 4 MG/2 ML VIAL IV PRN (08:00)
[2019-09-22] MEDS ORDERED: BISMUTH SUBSALICYLATE 30 ML/524 MG 240 ML/BOTTLE PO PRN (08:20)
[2019-09-22] MEDS ORDERED: PROMETHAZINE 25 MG/1 ML VIAL IM PRN (08:21)
[2019-09-22] MEDS: DOCUSATE SODIUM 100 MG CAPSULE PO SCH ×2 (10:42→21:52)
[2019-09-22] MEDS: glyBURIDE 5 MG TABLET PO SCH ×2 (12:51→16:49)
[2019-09-22] MEDS: GABAPENTIN 600 MG TABLET PO SCH ×3 (12:52→21:54)
[2019-09-22] MEDS: POTASSIUM CHLORIDE 20 MEQ TABLET PO SCH (12:53)
[2019-09-22] MEDS: oxyCODONE/ACETAMINOPHEN 5-325 MG TABLET PO PRN ×3 (12:53→22:13)
[2019-09-22] MEDS: PANTOPRAZOLE 40 MG TABLET PO SCH (12:53)
[2019-09-22] MEDS: COLLAGENASE OINT 30 GM TUBE TOP SCH (12:54)
[2019-09-22] MEDS: cefTRIAXone 500 MG in SYRINGE 1 EACH IV SCH (12:54)
[2019-09-22] MEDS: MENTHOL/ZINC OXIDE OINT 71 GM JAR TOP SCH ×2 (12:54→22:00)
[2019-09-22] MEDS: CHLORHEXIDINE 4% SOLN 118 ML BOTTLE TOP SCH (12:54)
[2019-09-22] MEDS: INSULIN LISPRO 100 UNIT/ML SUBCUT SCH ×6 (12:55→21:53)
[2019-09-22] MEDS ORDERED: MELATONIN 3 MG TABLET PO SCH (21:00)
[2019-09-22] MEDS: INSULIN GLARGINE 100 UNIT/ML SUBCUT SCH (21:53)
[2019-09-22] MEDS: ENOXAPARIN 40 MG/0.4 ML SYRINGE SUBCUT SCH (21:53)
[2019-09-22] MEDS: traZODone 50 MG TABLET PO SCH (21:53)
[2019-09-22] MEDS: NYSTATIN POWDER 15 GM BOTTLE TOP SCH (22:00)
[2019-09-22] MEDS: NYSTATIN CREAM 15 GM TUBE TOP SCH (22:01)
[2019-09-23] MEDS: KETOROLAC 15 MG/1 ML VIAL IV SCH ×2 (05:20→11:32)
[2019-09-23 06:26] LABS: Basophils % 0.2 % (0.0-0.8); Eosinophils # 0.2 10*3/uL (0.0-0.87); Eosinophils % 3.5 % (0.00-10.9); Hematocrit 33.2 VOL% (35.7-47.0); Hemoglobin 11.1 GM/DL (12.0-16.0); Immature Granulocytes % 0.3 %; Immature Granulocytes Absolute 0.02 #; Lymphocytes # 2.8 10*3/uL (1.4-4.0); Lymphocytes % 47.7 % (21.3-54.2); Mean Corpuscular HGB Conc 33.4 GM/DL (32-36); Mean Corpuscular Volume 93.8 FL (87-102); Mean Platelet Volume 9.3 FL (9.6-12.0); Monocytes % 5.2 % (1.7-12.7); Neutrophils % 43.1 % (38.7-73.9); Platelet Count 167 T/CUMM (130-400); Red Blood Count 3.54 MC/CUMM (3.8-5.5); Red Cell Distribution Width 14.6 % (9.3-17.3); White Blood Count 5.8 T/CUMM (4-12)
[2019-09-23 06:44] LABS: Alanine Aminotransferase 16 U/L (13-56); Albumin 2.6 G/DL (3.4-5.0); Alkaline Phosphatase 67 U/L (45-117); Aspartate Amino Transferase 8 U/L (0-37); Bilirubin,Total < 0.39 MG/DL (0.2-1.0); Blood Urea Nitrogen 23 MG/DL (7-18); Calcium 8.2 MG/DL (8.5-10.1); Estimated Glom Filtration Rate 146 ML/MIN; Glucose 188 MG/DL (74-106); Osmolality,Calculated 298.6 MOS/KG (273-304)
[2019-09-23] MEDS: INSULIN LISPRO 100 UNIT/ML SUBCUT SCH ×3 (07:16→11:14)
[2019-09-23] MEDS: glyBURIDE 5 MG TABLET PO SCH (08:38)
[2019-09-23] MEDS: cefTRIAXone 500 MG in SYRINGE 1 EACH IV SCH (08:39)
[2019-09-23] MEDS: DOCUSATE SODIUM 100 MG CAPSULE PO SCH ×2 (08:40→08:43)
[2019-09-23] MEDS: MENTHOL/ZINC OXIDE OINT 71 GM JAR TOP SCH (08:40)
[2019-09-23] MEDS: NYSTATIN CREAM 15 GM TUBE TOP SCH (08:41)
[2019-09-23] MEDS: CHLORHEXIDINE 4% SOLN 118 ML BOTTLE TOP SCH (08:41)
[2019-09-23] MEDS: GABAPENTIN 600 MG TABLET PO SCH ×2 (08:41→15:02)
[2019-09-23] MEDS: POTASSIUM CHLORIDE 20 MEQ TABLET PO SCH (08:41)
[2019-09-23] MEDS: NYSTATIN POWDER 15 GM BOTTLE TOP SCH (08:41)
[2019-09-23] MEDS: PANTOPRAZOLE 40 MG TABLET PO SCH (08:42)
[2019-09-23] MEDS: COLLAGENASE OINT 30 GM TUBE TOP SCH (08:42)
[2019-09-23] MEDS: oxyCODONE/ACETAMINOPHEN 5-325 MG TABLET PO PRN ×2 (08:54→13:32)
[2019-09-23 11:21] VITALS: BP 111/60
== END 2019-09-23 15:15 | disposition home health service (06) | DRG 349 ==
LOC: N.3E
PROVIDERS: ADMIT Family Medicine; ATTEND Family Medicine